=== PATIENT | male | born 1950 | race Caucasian/White ===

== ENCOUNTER → 2017-01-21 | Outpatient (CLI) | payer OTHER ==
--- NOTE | 2017-01-21 10:18 | MRI ---
Indication: Knee pain. Exam: MRI left knee without contrast. Technique: Routine multiplanar multisequence imaging was performed through the left knee. Findings: The middle 2/3 of the medial meniscus is not well visualized there is a small irregular ap pearance to the anterior horn which is extruded anterior to the disk joint space . There is moderate to severe joint space narrowing medially in the knee . There is moderate narrowing along the latera l compartment of the knee . There is moderate irregular abnormal signal and attenuation of the anter ior and middle 2/3 of the lateral meniscus with abnormal signal extending into the posterior horn. T here is associated severe thinning of the articular cartilage laterally . There is abnormal thickeni ng and signal throughout the posterior cruciate ligament with no focal fluid signal or retraction se en. The anterior cruciate ligament has an attenuated and irregular appearance with increased signal throughout . There is no retraction or fluid signal seen. There is a small joint effusion. No fractu re or dislocation is seen . There is minimal subarticular increased signal along the articular surfa edgar medially. There is moderate asymmetry of the femoral notch with lateral tilting of the patella a nd diffuse moderate thinning of the patellar cartilage. The surrounding retinacular fibers are intac t. The prominent osteophytes medially in the knee. The collateral ligaments are intact. 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 Extensive degenerative tear involving the middle 2/3 of the lateral meniscus . Severe osteoarthritic changes in the knee which is more prominent laterally with no acute bony abnor mality seen. Mild chronic partial tears or strains of the anterior and posterior cruciate ligaments with no full- thickness tear is identified . Small joint effusion. Moderate asymmetry of the femoral notch and lateral tilting of the patella with associated moderate chondromalacia. Reported By:
== END | disposition home or self-care (01) ==
LOC: RAD 08:12
PROVIDERS: ATTEND Internal Medicine
DX: M25.562 Pain in left knee (principal); S83.232A Complex tear of medial meniscus, current injury, left knee, initial encounter; S83.282A Other tear of lateral meniscus, current injury, left knee, initial encounter; M25.462 Effusion, left knee
CPT/HCPCS: 73721

== ENCOUNTER 2021-08-09 12:42 | Inpatient (IN) ==
[2021-08-09] MEDS ORDERED: NS 1,000 ML IV 1,000 ML IV ONE ×2 (12:47→15:01)
[2021-08-09] MEDS ORDERED: NS 1,000 ML IV 1,000 ML ONE ×2 (13:03→15:11)
--- NOTE | 2021-08-09 13:05 | RAD ---
HISTORYWEAKNESS, CHILLS, ORTEGA DM. HTN, ORTHOSTUDYCHEST, 1 VIEWCOMPARISONNoneFINDINGSThe trachea is midline. The cardiac silhouette is unremarkable. The lungs are clear without focal infiltrate or effusion. The bony thorax is unremarkable.IMPRESSIONNo acute cardiopulmonary findings .Electronically signed by: EMILIANA GAMA (Aug 09, 2021 13:03:48)
[2021-08-09 13:12] LABS: BASOPHILS # (AUTO) 0.1 X10^3/uL (0.0-0.1); BASOPHILS % (AUTO) 0.5 % (0.2-1.0); HEMATOCRIT 40.5 % (42.0-54.0); HEMOGLOBIN 13.6 g/dL (13.5-18.0); LYMPHOCYTES # (AUTO) 0.3 X10^3/uL (1.3-2.9); LYMPHOCYTES % (AUTO) 1.4 % (21.0-51.0); MEAN CORPUSCULAR HEMOGLOBIN 29.6 pg (27.0-34.0); MEAN CORPUSCULAR HGB CONC 33.6 g/dL (33.0-35.0); MEAN CORPUSCULAR VOLUME 88.2 fL (80.0-100.0); MEAN PLATELET VOLUME 9.1 fL (7.4-11.0); MONOCYTES # (AUTO) 0.8 x10^3/uL (0.3-0.8); NEUTROPHILS # (AUTO) 19.2 x10^3/uL (2.2-4.8); NEUTROPHILS % (AUTO) 94.1 % (42.0-75.0); PLATELET COUNT 203 X10^3/uL (150.0-450.0); RED BLOOD COUNT 4.59 X10^6/uL (4.7-6.0); RED CELL DISTRIBUTION WIDTH 14.4 % (11.6-16.5); WHITE BLOOD COUNT 20.4 X10^3/uL (3.6-10.0)
--- NOTE | 2021-08-09 13:13 | DR.DIZZY ---
HPI Time seen Time Seen by Provider: 08/09/21 12:53 Complaint Chief Complaint Doctor Comments: 70 y/o male presents for evaluation, feeling ill over the past several days. Started with a headache, subjective fever, urinary frequency and dysuria, nausea and vomiting. Headache located at back of head, constant, dull, does not radiate. Nothing makes it better, nothing makes it worse. Drinking fluids, but not eating. Having generalized weakness. Is a diabetic. Has been having some bladder issues for awhile, was scheduled to see a hyperbaric tech yesterday, but cancelled due to illness. COVID-19 Coronavirus risk:travel/contact w/high risk person: No Has patient experienced Coronavirus symptoms: Yes Coronavirus symptoms experienced: Fever Nurses Notes Reviewed Nurses Notes Review: Yes Source History Provided: Patient and Family Member Mode of Arrival Mode of Arrival: Wheelchair Context Stroke Symptoms: None PMH PMH Past Medical History: Diabetes and Hypertension Past Surgical History: Yes Social History Does patient currently use any type of tobacco product: No Alcohol Use: None Do you use any recreational Drugs:: No ROS Review of Systems Constitutional: Chills, Fever and Weakness Eyes: No Symptoms Reported ENTM: No Symptoms Reported Respiratoy: No Symptoms Reported Cardiovascular: No Symptoms Reported Gastrointestinal/Abdominal: Nausea and Vomiting Genitourinary: Dysuria and Frequency Neurological: Headache and Weakness Musculoskeletal: No Symptoms Reported Integumentary: No Symptoms Reported Hematologic/Lymphatic: No Symptoms Reported Endocrine: No Symptoms Reported Psychiatric: No Symptoms Reported All Other Systems: Reviewed and Negative PE Vital Signs Vitals: Temperature 99.3 F Pulse Rate 96 Respiratory Rate 20 Blood Pressure 161/81 O2 Sat by Pulse Oximetry 90 General Limitations: No Limitations General Appearance: Alert and In No Apparent Distress Head Head Exam: Normal Inspection Eyes Eye exam: Normal Appearance Pupils: Regular, Round: Bilateral ENT ENT Exam: Normal Exam, Mucous Membranes Dry and TM's Normal Bilaterally Neck Neck Exam: Normal Inspection Chest Chest Inspection: Normal Inspection Respiratory Respiratory Exam: Normal Lung Sounds Bilat; negative Accessory Muscle Use and Respiratory Distress Respiratory Exam: Bilateral: Clear to Auscultation Cardiovascular Cardiovascular Exam: Regular Rate, Tachycardia and Normal Heart Sounds Abdominal Exam Abdominal Exam: Normal Inspection, Normal Bowel Sounds, Soft and Tenderness (suprapubic region) Extremeties Extremities Exam: Normal Inspection and Full ROM; negative Tenderness and Edema Neurologic Neurological Exam: Alert, Oriented X3 and CN II-XII Intact; negative Motor Sensory Deficit Psychiatric Psychiatric Exam: Normal Affect Skin Skin Exam: Warm and Dry MDM Differential Diagnosis Differential Diagnosis: Dehydration and Electrolyte disorder Differential Diagnosis Comment: viral illness, Covid, flu, UTI COURSE Treatment Treatment: Pt ill x several days, having dysuria, frequency, weakness. W/u initiated. Given IV fluids. WBC elevated at 20K, with degree of left shift. Glucose very elevated , 575. Chemistries show renal injury - BUN 75,,Cr3.9. Given additional IV fluids, IV Levaquin to cover the urine. Given regular insu eneida bolus, 10 U. Discussed with his MD, Dr Adam, will admit. ROR Labs Reviewed Laboratory Results Reviewed?: Yes Result Diagrams: 08/09/21 13:00 08/09/21 13:00 Laboratory: WBC 20.4 X10^3/uL (3.6-10.0) H 08/09/21 13:00 RBC 4.59 X10^6/uL (4.7-6.0) L 08/09/21 13:00 Hgb 13.6 g/dL (13.5-18.0) 08/09/21 13:00 Hct 40.5 % (42.0-54.0) L 08/09/21 13:00 MCV 88.2 fL (80.0-100.0) 08/09/21 13:00 MCH 29.6 pg (27.0-34.0) 08/09/21 13:00 MCHC 33.6 g/dL (33.0-35.0) 08/09/21 13:00 RDW 14.4 % (11.6-16.5) 08/09/21 13:00 Plt Count 203 X10^3/uL (150.0-450.0) 08/09/21 13:00 Plt Count Comment Adequate (ADEQUATE) 08/09/21 13:00 MPV 9.1 fL (7.4-11.0) 08/09/21 13:00 Neut % (Auto) 94.1 % (42.0-75.0) H 08/09/21 13:00 Lymph % (Auto) 1.4 % (21.0-51.0) L 08/09/21 13:00 [place] % (Auto) 4.0 % (0.0-13.0) 08/09/21 13:00 Eos % (Auto) 0.0 % (0.9-2.9) L 08/09/21 13:00 Baso % (Auto) 0.5 % (0.2-1.0) 08/09/21 13:00 Neut # (Auto) 19.2 x10^3/uL (2.2-4.8) H 08/09/21 13:00 Lymph # (Auto) 0.3 X10^3/uL (1.3-2.9) L 08/09/21 13:00 [place] # (Auto) 0.8 x10^3/uL (0.3-0.8) 08/09/21 13:00 Eos # (Auto) 0.0 x10^3/uL (0.0-0.2) 08/09/21 13:00 Baso # (Auto) 0.1 X10^3/uL (0.0-0.1) 08/09/21 13:00 Absolute Nucleated RBC 0.1 /100WBC 08/09/21 13:00 Total Counted 100 08/09/21 13:00 Neutrophils % (Manual) 75 % (39-76) 08/09/21 13:00 Band Neutrophils % 13 % (0-10) H 08/09/21 13:00 Lymphocytes % (Manual) 5 % (13-43) L 08/09/21 13:00 Monocytes % (Manual) 4 % (4-9) 08/09/21 13:00 Metamyelocytes % 3 08/09/21 13:00 Plt Morphology Comment Normal (NORMAL) 08/09/21 13:00 RBC Morphology Normal (NORMAL) 08/09/21 13:00 Sodium 129 mmol/L (136-145) L 08/09/21 13:00 Corrected Sodium 140 mmol/L (136-145) 08/09/21 13:00 Potassium 4.5 mmol/L (3.5-5.1) 08/09/21 13:00 Chloride 92 mmol/L (98-107) L 08/09/21 13:00 Carbon Dioxide 21.6 mmol/L (21-32) 08/09/21 13:00 BUN 73 mg/dL (7-18) H 08/09/21 13:00 Creatinine 3.86 mg/dL (0.70-1.30) H 08/09/21 13:00 Est GFR (MDRD) Af Amer 20 (>60) L 08/09/21 13:00 Est GFR (MDRD) Non-Af 17 (>60) L 08/09/21 13:00 Glucose 575 mg/dL (65-99) H* 08/09/21 13:00 POC Glucose (mg/dL) 478 mg/dL (65-99) H 08/09/21 15:08 Calcium 8.4 mg/dL (8.5-10.1) L 08/09/21 13:00 Corrected Calcium 9.8 mg/dL (8.5-10.1) 08/09/21 13:00 Total Bilirubin 0.40 mg/dL (0.2-1.0) 08/09/21 13:00 AST 43 Units/L (15-37) H 08/09/21 13:00 ALT 32 Units/L (12-78) 08/09/21 13:00 Alkaline Phosphatase 138 Units/L (46-116) H 08/09/21 13:00 Creatine Kinase 62 Units/L (39-308) 08/09/21 13:00 CK-MB (CK-2) < 1.0 ng/mL (0-4.0) 08/09/21 13:00 CK/CKMB % Calc 1.6 % (<4) 08/09/21 13:00 Troponin I < 0.02 ng/mL (0-1.5) 08/09/21 13:00 Total Protein 7.2 g/dL (6.4-8.2) 08/09/21 13:00 Albumin 2.2 g/dL (3.4-5.0) L 08/09/21 13:00 Globulin 5.0 g/dL (2.5-4.5) H 08/09/21 13:00 Albumin/Globulin Ratio 0.4 Ratio (1.1-2.1) L 08/09/21 13:00 Specimen Type Random urine 08/09/21 13:16 Urine Color Yellow (YELLOW) 08/09/21 13:16 Urine Appearance Cloudy (CLEAR) 08/09/21 13:16 Urine pH 5.0 (5.0 - 8.0) 08/09/21 13:16 Ur Specific [place] 1.015 (1.000-1.030) 08/09/21 13:16 Urine Protein 3+ (NEGATIVE) 08/09/21 13:16 Urine Glucose (UA) 4+ (NEGATIVE) 08/09/21 13:16 Urine Ketones Negative (NEGATIVE) 08/09/21 13:16 Urine Occult Blood 5+ (NEGATIVE) 08/09/21 13:16 Urine Nitrite Negative (NEGATIVE) 08/09/21 13:16 Urine Bilirubin Negative (NEGATIVE) 08/09/21 13:16 Urine Urobilinogen Normal (NORMAL) 08/09/21 13:16 Ur Leukocyte Esterase 2+ (NEGATIVE) 08/09/21 13:16 Urine RBC 5-10 /HPF (0-3) A 08/09/21 13:16 Urine WBC 30-50 /HPF (0-5) A 08/09/21 13:16 Ur Squamous Epith Cells Rare /HPF (NEGATIVE) 08/09/21 13:16 Amorphous Sediment 3+ /HPF (NEGATIVE) 08/09/21 13:16 Urine Bacteria 4+ /HPF (NEGATIVE) 08/09/21 13:16 Granular Casts Few /LPF (NEGATIVE) 08/09/21 13:16 Urine Mucus Numerous /HPF (NEGATIVE) 08/09/21 13:16 Ur Culture Indicated? Yes/culture set up 08/09/21 13:16 SARS-CoV-2 (PCR) Negative (NEGATIVE) 08/09/21 13:12 Influenza Type A (PCR) Negative (NEGATIVE) 08/09/21 13:12 Influenza Type B (PCR) Negative (NEGATIVE) 08/09/21 13:12 RSV (PCR) Negative (NEGATIVE) 08/09/21 13:12 Other Results Comments: + hyperglycemia, acute renal injury. XRAY XRAY Interpreted by: Radiologist X-ray Results: CXR acceptable Opioid Opioid Risk Tool Total: 0 Total Score Risk Category: Low Risk Copyright: [employer] predicting aberrant behaviors Diagnosis Discharge Problem: Acute UTI, Acute renal injury, Poorly controlled diabetes mellitus
[2021-08-09 13:29] LABS: BAND NEUTROPHILS % 13 % (0-10); METAMYELOCYTES % 3
[2021-08-09 13:30] LABS: PLATELET MORPHOLOGY COMMENT NORMAL (NORMAL)
[2021-08-09 13:30] LABS: BILIRUBIN,URINE NEGATIVE (NEGATIVE); BLOOD/HEMOGLOBIN,URINE 5+ (NEGATIVE); GLUCOSE, URINE 4+ (NEGATIVE); KETONES,URINE NEGATIVE (NEGATIVE); LEUKOCYTE ESTERASE ,URINE 2+ (NEGATIVE); NITRITES,URINE NEGATIVE (NEGATIVE); PROTEIN,URINE 3+ (NEGATIVE); UROBILINOGEN,URINE NORMAL (NORMAL)
[2021-08-09 13:33] LABS: APPEARANCE,URINE CLOUDY (CLEAR); COLOR,URINE YELLOW (YELLOW)
[2021-08-09 13:35] LABS: ALANINE AMINOTRANSFERASE 32 Units/L (12-78); ALBUMIN 2.2 g/dL (3.4-5.0); ALKALINE PHOSPHATASE 138 Units/L (46-116); ASPARTATE AMINO TRANSFERASE 43 Units/L (15-37); BLOOD UREA NITROGEN 73 mg/dL (7-18); CALCIUM 8.4 mg/dL (8.5-10.1); CARBON DIOXIDE 21.6 mmol/L (21-32); CHLORIDE 92 mmol/L (98-107); CKMB % 1.6 % (<4); COR CA(FOR HYPOALB) 9.8 mg/dL (8.5-10.1); CREATINE KINASE 62 Units/L (39-308); CREATINE KINASE MB < 1.0 ng/mL (0-4.0); CREATININE 3.86 mg/dL (0.70-1.30); SODIUM 129 mmol/L (136-145); TOTAL PROTEIN 7.2 g/dL (6.4-8.2); TROPONIN I < 0.02 ng/mL (0-1.5); eGFR NON BLACK RACES 17 (>60)
[2021-08-09 13:38] LABS: COR NA(FOR HYPERGLY) 140 mmol/L (136-145)
[2021-08-09 13:40] LABS: AMORPHOUS SEDIMENT,UR 3+ /HPF (NEGATIVE); BACTERIA,URINE 4+ /HPF (NEGATIVE); SQUAMOUS EPITHELIAL CELL,UR RARE /HPF (NEGATIVE)
[2021-08-09 13:41] LABS: GRANULAR CASTS,URINE FEW /LPF (NEGATIVE); MUCUS,URINE NUMEROUS /HPF (NEGATIVE)
[2021-08-09] MEDS ORDERED: LEVAQUIN PREMIX IV 750 MG 750 MG/150 ML BAG IV ONE ×2 (15:01→15:11)
[2021-08-09] MEDS ORDERED: HumuLIN R IV ONE (15:02)
[2021-08-09] MEDS ORDERED: HumuLIN R ONE (15:11)
--- NOTE | 2021-08-09 17:55 | CT ---
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 [No acute intraparenchymal hemorrhage or cytotoxic edema is identified.] [No extra-axial fluid collections are seen.] [No alteration in the attenuation of the brain parenchyma can be identified to suggest acute or subacute ischemic change.] However, if the patients symptoms are clinically & neurologically concerning for an acute ischemic event, then MR imaging of the brain with DWI sequencing could be considered to exclude an acute CVA (based on this patient?s clinical presentation and the specific medical circumstances). If there remains strong concern for an intracranial neoplasm or mass, then follow-up with CT or MR imaging of the brain with IV contrast is recommended for improved inspection (which would be more sensitive for the assessment of any intracranial neoplasia). [The ventricular system is symmetric and nondilated.] [The extracranial structures are grossly unremarkable.] The visualized paranasal sinuses and mastoid air cells are relatively clear on this examination as well.IMPRESSION:1. No acute intracranial process or hemorrhage identified.If clinical symptomatology persists, follow-up outpatient MR imaging of the brain with IV contrast is recommended for assurance.Electronically signed by: MORELIA RUTLEDGE III (Aug 09, 2021 17:53:24)
[2021-08-09] MEDS ORDERED: GLUCOPHAGE PO SCH (21:00)
[2021-08-09] MEDS: HumuLIN R SC PRN (21:12)
[2021-08-09] MEDS: HYTRIN PO SCH (21:14)
[2021-08-09] MEDS: SNACK - Diabetic Appropriate PO SCH (21:14)
[2021-08-09] MEDS: NS 1,000 ML IV 1,000 ML IV SCH (21:14)
[2021-08-09] MEDS: NORVASC TAB 5 MG PO SCH (21:14)
[2021-08-09] MEDS: NORCO 5/325 MG TAB PO PRN (21:15)
[2021-08-09] MEDS: GLUCOTROL XL 24-HR PO SCH (21:15)
[2021-08-10] MEDS: NS 1,000 ML IV 1,000 ML IV SCH ×5 (03:31→21:28)
[2021-08-10] MEDS: NORCO 5/325 MG TAB PO PRN ×3 (03:41→22:44)
[2021-08-10] MEDS ORDERED: TYLENOL 325 MG TAB PO ONE (05:01)
[2021-08-10] MEDS: TYLENOL 325 MG TAB PO PRN ×2 (05:05→15:43)
[2021-08-10] MEDS: HumuLIN R SC PRN ×3 (06:07→16:59)
[2021-08-10 06:39] LABS: BASOPHILS % (AUTO) 0.2 % (0.2-1.0); HEMATOCRIT 36.7 % (42.0-54.0); HEMOGLOBIN 12.5 g/dL (13.5-18.0); LYMPHOCYTES # (AUTO) 0.4 X10^3/uL (1.3-2.9); LYMPHOCYTES % (AUTO) 1.9 % (21.0-51.0); MEAN CORPUSCULAR HEMOGLOBIN 29.7 pg (27.0-34.0); MEAN CORPUSCULAR HGB CONC 34.1 g/dL (33.0-35.0); MEAN CORPUSCULAR VOLUME 87.1 fL (80.0-100.0); MEAN PLATELET VOLUME 9.3 fL (7.4-11.0); MONOCYTES # (AUTO) 0.7 x10^3/uL (0.3-0.8); MONOCYTES % (AUTO) 3.6 % (0.0-13.0); NEUTROPHILS # (AUTO) 18.5 x10^3/uL (2.2-4.8); NEUTROPHILS % (AUTO) 94.3 % (42.0-75.0); PLATELET COUNT 190 X10^3/uL (150.0-450.0); RED BLOOD COUNT 4.22 X10^6/uL (4.7-6.0); RED CELL DISTRIBUTION WIDTH 14.1 % (11.6-16.5); WHITE BLOOD COUNT 19.6 X10^3/uL (3.6-10.0)
[2021-08-10 06:49] LABS: ALBUMIN 1.8 g/dL (3.4-5.0); CALCIUM 8.1 mg/dL (8.5-10.1); CARBON DIOXIDE 18.3 mmol/L (21-32); COR CA(FOR HYPOALB) 9.9 mg/dL (8.5-10.1); CREATININE 3.69 mg/dL (0.70-1.30); TOTAL PROTEIN 6.7 g/dL (6.4-8.2)
[2021-08-10 07:27] LABS: BAND NEUTROPHILS % 11 % (0-10); PLATELET MORPHOLOGY COMMENT NORMAL (NORMAL)
[2021-08-10] MEDS: NORVASC TAB 5 MG PO SCH (09:38)
[2021-08-10] MEDS: GLUCOTROL XL 24-HR PO SCH (09:38)
[2021-08-10] MEDS: HYTRIN PO SCH (09:38)
--- NOTE | 2021-08-10 10:29 | DR.H&P ---
H&P - History & Physical for Day of: H&P Date: 08/09/21 - Chief Complaint Chief Complaint: HEADACHE, FEVER, URINARY FREQUENCY, PAINFUL URINATION, AND NAUSEA/VOMITING - History of Present Illness History of Present Illness: IS A 70 YEAR OLD PATIENT OF OURS. HE PRESENTED TO THE ER WITH COMPLAINTS. OF HEADACHE, FEVER, URINARY FREQUENCY, PAINFUL URINATION, AND NAUSEA/VOMITING. HEADACHE IS LOCATED AT THE BACK OF THE HEAD, IS CONSTANT, DULL, AND DOES NOT RADIATE. HE RATES PAIN A 6/10. HE REPORTS FLUID INTAKE, BUT DECREASED SOLID INTAKE. HE ALSO ADMITS TO GENERALIZED WEAKNESS. HE WAS SCHEDULED TO SEE A MANUFACTURERS AGENT TODAY, BUT CANCELLED APPOINTMENT DUE TO ILLNESS. HIS PMH INCLUDES DIABETES AND HTN. ON ARRIVAL THE HOSPITAL, VITALS WERE 99.3-121-25-94%-161/81. LABS WERE OBTAINED. ABNORMAL LAB VALUES INCLUDE THE FOLLOWING: WBC 20.4, RBC 4.59, HCT 40.5, SODIUM 129, CHLORIDE 92, BUN 73, CREATININE 3.86, GLUCOSE 575, CALCIUM 8.4, AST 43, ALK PHOS 138, ALBUMIN 2.2, GLOBULIN 5.0. URINALYSIS REVEALED: WBC 30-50, RBC 5-10, LEUKOCYTES 2+, BACTERIA 4+, OCCULT BLOOD 5+. COVID, INFLUENZA, AND RSV NEGATIVE. BLOOD AND URINE CULTURES WERE SET UP. CHEST XRAY WAS OBTAINED AND REVEALED: NO ACUTE CARDIOPULMONARY FINDINGS. BRAIN CT OBTAINED AND REVEALED: NO ACUTE INTRACRANIAL PROCESS OR HEMORRHAGE IDENTIFIED. IN THE ER, HE WAS GIVEN A NORMAL SALINE BOLUS X 2, LEVAQUIN 750MG IV X 1, HUMULIN R 10 UNITS. BLOOD GLUCOSE DECREASED TO 478. HE WAS ADMITTED TO THE HOSPITAL FOR FURTHER EVALUATION AND TREATMENT OF ACUTE UTI, ACUTE RENAL INJURY, HYPERGLYCEMIA. HE WAS STARTED ON NORMAL SALINE AT 150ML/HR, INVANZ 0.5G IV DAILY, OTBS ACHS, HUMULIN R SLIDING SCALE, TYLENOL 650MG PO Q4H PRN, AND HIS HOME MEDICATIONS OF NORVASC, GLIPIZIDE, NORCO, AND TERAZOXIN WERE RESUMED. OTHERWISE, WE PLAN TO FOLLOW UP WITH AM LABS AND CONTINUE TO MONITOR. TIME SPENT ON CLINICAL ASSESSMENT, REVIEWING LABS AND IMAGING, DECISION MAKING, AND DOCUMENTATION GREATER THAN 75 MINUTES. - Past Medical History Past Medical History: Hypertension, Diabetes - Past Surgical History Surgical History: Ortho Surgery - Family History Family Medical History: [place], Coronary Artery Disease, Sudden Cardiac - Social History Does patient currently use any type of tobacco product: No Does any household member use tobacco: No Alcohol Use: None Drug Use: None - Medications Home Medications: codeine Allergy (Verified 08/09/21 12:43) erythromycin base Allergy (Verified 08/09/21 12:43) shellfish derived Allergy (Verified 08/09/21 12:43) CONTINUE taking the following medications bethanechol chloride 25 mg PO TID 08/10/21 [History] dutasteride 0.5 mg PO HS 08/10/21 [History] glipizide 10 mg PO DAILY 08/10/21 [History] hydrocodone-acetaminophen 1 tab PO BID PRN 08/10/21 [History] ropinirole 0.5 mg PO BID 08/10/21 [History] - Review of Systems Constitutional: Fever, Weakness Eyes: No Symptoms Reported ENT: No Symptoms Reported Respiratory: No Symptoms Reported Cardiovascular: No Symptoms Reported Gastrointestinal: See HPI, Nausea, Vomiting Genitourinary: See HPI, Dysuria, Frequency Musculoskeletal: No Symptoms Reported Skin: No Symptoms Reported Neurological: Weakness - Physical Exam Vital Signs: Temperature 98.2 F Pulse Rate [Radial] 83 Pulse Rate 102 Respiratory Rate 21 Blood Pressure [Left Arm] 114/66 Blood Pressure 118/59 O2 Sat by Pulse Oximetry 96 Oriented: Normal Eyes: Normal Ear: Normal Nose: Normal Throat: Normal Respiratory: Diminished Throughout Cardiovascular: Tachycardia : Dysuria, Frequency Auscultation: Bowel Sounds: Normal Palpation: Normal Tenderness: Normal Skin: Normal Musculoskeletal: Normal Psychiatric: Normal Mood Description: Calm Affect: Normal Speech Pattern: Clear - Assessment/Plan (1) Acute UTI Status: Acute Plan: ADMIT, NORMAL SALINE AT 150ML/HR, INVANZ 0.5G IV DAILY, OTBS ACHS, HUMULIN R SLIDING SCALE, TYLENOL 650MG PO Q4H PRN, AND HIS HOME MEDICATIONS OF NORVASC, GLIPIZIDE, NORCO, AND TERAZOXIN WERE RESUMED. (2) Acute renal injury Status: Acute (3) Hyperglycemia due to type 2 diabetes mellitus Status: Acute - Allergies Allergies/Adverse Reactions: Allergies Allergy/AdvReac Type Severity Reaction Status Date / Time codeine Allergy Verified 08/09/21 12:43 erythromycin base Allergy Verified 08/09/21 12:43 shellfish derived Allergy Verified 08/09/21 12:43
[2021-08-10] MEDS: INVANZ INJ 1 GM VIAL 0.5 GM in NS 50 ML IV 50 ML IV SCH (10:55)
[2021-08-10] MEDS: ROBITUSSIN DM PO PRN ×2 (17:15→22:44)
[2021-08-10] MEDS: SNACK - Diabetic Appropriate PO SCH (21:15)
[2021-08-11] MEDS: NS 1,000 ML IV 1,000 ML IV SCH ×6 (00:58→20:19)
[2021-08-11] MEDS: HumuLIN R SC PRN ×4 (05:49→20:23)
[2021-08-11 06:20] LABS: BASOPHILS % (AUTO) 0.2 % (0.2-1.0); EOSINOPHILS % (AUTO) 0.1 % (0.9-2.9); HEMATOCRIT 37.7 % (42.0-54.0); HEMOGLOBIN 12.6 g/dL (13.5-18.0); LYMPHOCYTES # (AUTO) 0.6 X10^3/uL (1.3-2.9); LYMPHOCYTES % (AUTO) 2.9 % (21.0-51.0); MEAN CORPUSCULAR HEMOGLOBIN 29.4 pg (27.0-34.0); MEAN CORPUSCULAR HGB CONC 33.3 g/dL (33.0-35.0); MEAN CORPUSCULAR VOLUME 88.2 fL (80.0-100.0); MEAN PLATELET VOLUME 9.5 fL (7.4-11.0); MONOCYTES # (AUTO) 1.3 x10^3/uL (0.3-0.8); NEUTROPHILS # (AUTO) 20.1 x10^3/uL (2.2-4.8); NEUTROPHILS % (AUTO) 90.8 % (42.0-75.0); PLATELET COUNT 174 X10^3/uL (150.0-450.0); RED BLOOD COUNT 4.28 X10^6/uL (4.7-6.0); RED CELL DISTRIBUTION WIDTH 14.9 % (11.6-16.5); WHITE BLOOD COUNT 22.1 X10^3/uL (3.6-10.0)
[2021-08-11 06:21] LABS: ALBUMIN 1.5 g/dL (3.4-5.0); CALCIUM 7.8 mg/dL (8.5-10.1); CARBON DIOXIDE 20.8 mmol/L (21-32); COR CA(FOR HYPOALB) 9.8 mg/dL (8.5-10.1); CREATININE 4.25 mg/dL (0.70-1.30)
[2021-08-11 07:06] LABS: BAND NEUTROPHILS % 7 % (0-10); PLATELET MORPHOLOGY COMMENT NORMAL (NORMAL)
[2021-08-11] MEDS: MAALOX or MYLANTA PO PRN ×2 (08:12→20:23)
[2021-08-11] MEDS: HYTRIN PO SCH (08:12)
[2021-08-11] MEDS: NORVASC TAB 5 MG PO SCH (08:12)
[2021-08-11] MEDS: GLUCOTROL XL 24-HR PO SCH (08:12)
[2021-08-11] MEDS: INVANZ INJ 1 GM VIAL 0.5 GM in NS 50 ML IV 50 ML IV SCH (10:22)
[2021-08-11] MEDS: PROTONIX TAB 40 MG PO SCH ×2 (12:06→20:22)
--- NOTE | 2021-08-11 13:27 | CT ---
HISTORYELEVATED WBC, UTI, +BLOOD CULTURESSTUDYABDOMEN/PELVIS W/O CONCOMPARISONNone availableTECHNIQUEMultiple axial images of the abdomen and pelvis were obtained from the lung bases to the pubic symphysis without the administration of IV contrast. Dose reduction techniques including Automated Exposure Control (AEC) and adjustment of mA and kV were utilized.FINDINGS[Small bilateral pleural effusions. Heart size is normal with small pericardial effusion. Liver is enlarged measuring 20 cm in craniocaudal dimension. There is low attenuation consistent with steatosis of the liver. No focal hepatic lesion given limitations of a noncontrast examination. Gallbladder, bile ducts, spleen, pancreas and adrenal glands are normal. The right kidney demonstrates moderate hydronephrosis without obstructing stone or mass. The left kidney demonstrates moderate hydronephrosis without obstructing stone or mass. Urinary bladder is distended. Prostate gland is normal. The rectum and colon are normal. The appendix is normal. Upper GI tract demonstrates no evidence of mass or obstruction. No adenopathy. Abdominal aorta is normal in caliber. Review of bone windows demonstrates no acute osseous abnormality. Moderate spondylosis at L5-S1.]IMPRESSIONModerate bilateral hydronephrosis to the level of the urinary bladder without obstructing stones or mass. Given the dilatation of the urinary bladder this may represent reflux of urine in the setting of chronic bladder outlet obstruction or neuropathy. A patulous right left ureter is also consideration. If clinically warranted a nuclear medicine renal scan with Lasix can be performed did rule out ureteral obstruction.Hepatomegaly and steatosis.Small bilateral pleural effusions with small pericardial effusion. Correlate for volume overload/third-spacing.Electronically signed by: OLE OLVERA (Aug 11, 2021 13:25:52)
[2021-08-11] MEDS: MYLICON TAB 80 MG CHEW PO SCH ×2 (14:07→21:15)
[2021-08-11] MEDS: ROBITUSSIN DM PO PRN (15:40)
[2021-08-11] MEDS: SNACK - Diabetic Appropriate PO SCH (20:00)
[2021-08-11] MEDS: NORCO 5/325 MG TAB PO PRN (22:32)
[2021-08-12] MEDS: NS 1,000 ML IV 1,000 ML IV SCH ×3 (03:29→13:00)
[2021-08-12] MEDS: MYLICON TAB 80 MG CHEW PO SCH ×3 (06:00→21:11)
[2021-08-12 06:02] LABS: BASOPHILS # (AUTO) 0.1 X10^3/uL (0.0-0.1); BASOPHILS % (AUTO) 0.4 % (0.2-1.0); EOSINOPHILS # (AUTO) 0.1 x10^3/uL (0.0-0.2); EOSINOPHILS % (AUTO) 0.3 % (0.9-2.9); HEMATOCRIT 36.4 % (42.0-54.0); HEMOGLOBIN 12.1 g/dL (13.5-18.0); LYMPHOCYTES # (AUTO) 0.7 X10^3/uL (1.3-2.9); LYMPHOCYTES % (AUTO) 3.2 % (21.0-51.0); MEAN CORPUSCULAR HEMOGLOBIN 29.1 pg (27.0-34.0); MEAN CORPUSCULAR HGB CONC 33.3 g/dL (33.0-35.0); MEAN CORPUSCULAR VOLUME 87.5 fL (80.0-100.0); MEAN PLATELET VOLUME 9.5 fL (7.4-11.0); MONOCYTES # (AUTO) 1.8 x10^3/uL (0.3-0.8); MONOCYTES % (AUTO) 8.5 % (0.0-13.0); NEUTROPHILS # (AUTO) 18.2 x10^3/uL (2.2-4.8); NEUTROPHILS % (AUTO) 87.6 % (42.0-75.0); PLATELET COUNT 180 X10^3/uL (150.0-450.0); RED BLOOD COUNT 4.16 X10^6/uL (4.7-6.0); WHITE BLOOD COUNT 20.8 X10^3/uL (3.6-10.0)
[2021-08-12] MEDS: HumuLIN R SC PRN ×2 (06:17→11:38)
[2021-08-12 06:18] LABS: ALBUMIN 1.4 g/dL (3.4-5.0); CARBON DIOXIDE 17.4 mmol/L (21-32); COR CA(FOR HYPOALB) 10.1 mg/dL (8.5-10.1); CREATININE 4.2 mg/dL (0.70-1.30); TOTAL PROTEIN 5.9 g/dL (6.4-8.2)
[2021-08-12 06:44] LABS: PLATELET MORPHOLOGY COMMENT NORMAL (NORMAL)
[2021-08-12] MEDS: INVANZ INJ 1 GM VIAL 0.5 GM in NS 50 ML IV 50 ML IV SCH (08:24)
[2021-08-12] MEDS: GLUCOTROL XL 24-HR PO SCH (08:24)
[2021-08-12] MEDS: NORVASC TAB 5 MG PO SCH (08:25)
[2021-08-12] MEDS: HYTRIN PO SCH (08:25)
[2021-08-12] MEDS: PROTONIX TAB 40 MG PO SCH ×2 (08:25→21:11)
[2021-08-12] MEDS: ROBITUSSIN DM PO PRN ×2 (10:20→22:30)
--- NOTE | 2021-08-12 11:03 | PCM.PROG ---
Progress Note Progress Note for Day of Date of Exam: 08/11/21 Subjective Subjective: PT IS A 70 YEAR OLD MALE ADMITTED FOR ACUTE UTI, ACUTE RENAL FAILURE, AND GENERALIZED WEAKNESS. HIS PMH INCLUDES DIABETES AND HTN. THIS MORNING PATIENT REPORTS MINIMAL IMPROVEMENT IN HIS SYMPTOMS. HE DOES FEEL "BLOATED" AND HAS SOME SUPRAPUBIC TENDERNESS. LABS/IMAGING WERE OBTAINED: WBC 22, HGB 12.6, PLT 174, NA 134, K 4.4, CREATININE 4.25, GLUCOSE 217, BLOOD AND URINE CULTURES PENDING, PRELIM URINE CULTURE POSITIVE FOR GRAM NEGATIVE RODS AND PRELIM POSITIVE BLOOD CULTURE, AWAITING SPECIATION. CHEST XRAY WAS OBTAINED AND REVEALED: NO ACUTE CARDIOPULMONARY FINDINGS. HE IS CURRENTLY ON NORMAL SALINE AT 150ML/HR, INVANZ 0.5G IV DAILY, OTBS ACHS, HUMULIN R SLIDING SCALE, TYLENOL 650MG PO Q4H PRN, AND HIS HOME MEDICATIONS OF NORVASC, GLIPIZIDE, NORCO, AND TERAZOSIN WERE RESUMED. WILL ADD PROTONIX FOR GERD SYMPTOMS AND SIMETHICONE FOR BLOATING. PT DOES APPEAR TO HAVE ABDOMINAL DISTENTION, WILL GET CTAP W/O CONTRAST FOR FURTHER EVALUATION. OTHERWISE, WE PLAN TO FOLLOW UP WITH AM LABS AND CONTINUE TO MONITOR. TIME SPENT ON CLINICAL ASSESSMENT, REVIEWING LABS AND IMAGING, DECISION MAKING, AND DOCUMENTATION GREATER THAN 45 MINUTES. Past Medical Family Social History Past Med/Fam/Surg Hx: No changes since H&P Allergies: Allergies codeine Allergy (Verified 08/09/21 12:43) erythromycin base Allergy (Verified 08/09/21 12:43) shellfish derived Allergy (Verified 08/09/21 12:43) Review of Systems ROS: No change since H&P Vital Signs and I&O's Vital Signs: Temperature 100.0 F Pulse Rate [Radial] 95 Pulse Rate 102 Respiratory Rate 20 Blood Pressure [Left Arm] 159/75 Blood Pressure 118/59 O2 Sat by Pulse Oximetry 93 Intake and Output: Intake & Output 08/09/21 08/10/21 08/11/21 08/12/21 23:59 23:59 23:59 23:59 Intake Total 360 / 360 4841 / 4841 6390 / 6390 940 / 940 Output Total 125 / 125 375 / 375 300 / 300 Balance 235 / 235 4466 / 4466 6090 / 6090 940 / 940 Physical Exam Oriented: Normal Eyes: Normal Ear: Normal Nose: Normal Throat: Normal Cardiovascular: Tachycardia : Dysuria and Frequency Auscultation: Bowel Sounds: Normal Tenderness: Suprapubic, Mild and Moderate Skin: Normal Musculoskeletal: Normal Psychiatric: Normal Mood Description: Calm Affect: Normal Speech Pattern: Clear and Appropriate Laboratory and Diagnostics Result Diagrams: 08/12/21 05:26 08/12/21 05:26 Labs: 08/09/21 13:16 Urine,Clean Catch Urine Culture - Final Escherichia Coli 08/10/21 06:00 Blood Blood Culture - Final Escherichia Coli 08/10/21 05:38 Blood Blood Culture - Final Escherichia Coli Laboratory WBC 20.8 X10^3/uL (3.6-10.0) H 08/12/21 05:26 RBC 4.16 X10^6/uL (4.7-6.0) L 08/12/21 05:26 Hgb 12.1 g/dL (13.5-18.0) L 08/12/21 05:26 Hct 36.4 % (42.0-54.0) L 08/12/21 05:26 MCV 87.5 fL (80.0-100.0) 08/12/21 05:26 MCH 29.1 pg (27.0-34.0) 08/12/21 05:26 MCHC 33.3 g/dL (33.0-35.0) 08/12/21 05:26 RDW 15.0 % (11.6-16.5) 08/12/21 05:26 Plt Count 180 X10^3/uL (150.0-450.0) 08/12/21 05:26 Plt Count Comment Adequate (ADEQUATE) 08/12/21 05:26 MPV 9.5 fL (7.4-11.0) 08/12/21 05:26 Neut % (Auto) 87.6 % (42.0-75.0) H 08/12/21 05:26 Lymph % (Auto) 3.2 % (21.0-51.0) L 08/12/21 05:26 [place] % (Auto) 8.5 % (0.0-13.0) 08/12/21 05:26 Eos % (Auto) 0.3 % (0.9-2.9) L 08/12/21 05:26 Baso % (Auto) 0.4 % (0.2-1.0) 08/12/21 05:26 Neut # (Auto) 18.2 x10^3/uL (2.2-4.8) H 08/12/21 05:26 Lymph # (Auto) 0.7 X10^3/uL (1.3-2.9) L 08/12/21 05:26 [place] # (Auto) 1.8 x10^3/uL (0.3-0.8) H 08/12/21 05:26 Eos # (Auto) 0.1 x10^3/uL (0.0-0.2) 08/12/21 05:26 Baso # (Auto) 0.1 X10^3/uL (0.0-0.1) 08/12/21 05:26 Absolute Nucleated RBC 0.0 /100WBC 08/12/21 05:26 Total Counted 100 08/12/21 05:26 Neutrophils % (Manual) 90 % (39-76) H 08/12/21 05:26 Band Neutrophils % 7 % (0-10) 08/11/21 05:30 Lymphocytes % (Manual) 4 % (13-43) L 08/12/21 05:26 Monocytes % (Manual) 6 % (4-9) 08/12/21 05:26 Metamyelocytes % 3 08/09/21 13:00 Plt Morphology Comment Normal (NORMAL) 08/12/21 05:26 RBC Morphology Normal (NORMAL) 08/12/21 05:26 Sodium 136 mmol/L (136-145) 08/12/21 05:26 Corrected Sodium 138 mmol/L (136-145) 08/12/21 05:26 Potassium 4.5 mmol/L (3.5-5.1) 08/12/21 05:26 Chloride 105 mmol/L (98-107) 08/12/21 05:26 Carbon Dioxide 17.4 mmol/L (21-32) L 08/12/21 05:26 BUN 93 mg/dL (7-18) H 08/12/21 05:26 Creatinine 4.20 mg/dL (0.70-1.30) H 08/12/21 05:26 Est GFR (MDRD) Af Amer 18 (>60) L 08/12/21 05:26 Est GFR (MDRD) Non-Af 15 (>60) L 08/12/21 05:26 Glucose 175 mg/dL (65-99) H 08/12/21 05:26 POC Glucose (mg/dL) 168 mg/dL (65-99) H 08/12/21 05:42 Calcium 8.0 mg/dL (8.5-10.1) L 08/12/21 05:26 Corrected Calcium 10.1 mg/dL (8.5-10.1) 08/12/21 05:26 Total Bilirubin 0.60 mg/dL (0.2-1.0) 08/12/21 05:26 AST 23 Units/L (15-37) 08/12/21 05:26 ALT 17 Units/L (12-78) 08/12/21 05:26 Alkaline Phosphatase 183 Units/L (46-116) H 08/12/21 05:26 Creatine Kinase 62 Units/L (39-308) 08/09/21 13:00 CK-MB (CK-2) < 1.0 ng/mL (0-4.0) 08/09/21 13:00 CK/CKMB % Calc 1.6 % (<4) 08/09/21 13:00 Troponin I < 0.02 ng/mL (0-1.5) 08/09/21 13:00 Total Protein 5.9 g/dL (6.4-8.2) L 08/12/21 05:26 Albumin 1.4 g/dL (3.4-5.0) L 08/12/21 05:26 Globulin 4.5 g/dL (2.5-4.5) 08/12/21 05:26 Albumin/Globulin Ratio 0.3 Ratio (1.1-2.1) L 08/12/21 05:26 Specimen Type Random urine 08/09/21 13:16 Urine Color Yellow (YELLOW) 08/09/21 13:16 Urine Appearance Cloudy (CLEAR) 08/09/21 13:16 Urine pH 5.0 (5.0 - 8.0) 08/09/21 13:16 Ur Specific [place] 1.015 (1.000-1.030) 08/09/21 13:16 Urine Protein 3+ (NEGATIVE) 08/09/21 13:16 Urine Glucose (UA) 4+ (NEGATIVE) 08/09/21 13:16 Urine Ketones Negative (NEGATIVE) 08/09/21 13:16 Urine Occult Blood 5+ (NEGATIVE) 08/09/21 13:16 Urine Nitrite Negative (NEGATIVE) 08/09/21 13:16 Urine Bilirubin Negative (NEGATIVE) 08/09/21 13:16 Urine Urobilinogen Normal (NORMAL) 08/09/21 13:16 Ur Leukocyte Esterase 2+ (NEGATIVE) 08/09/21 13:16 Urine RBC 5-10 /HPF (0-3) A 08/09/21 13:16 Urine WBC 30-50 /HPF (0-5) A 08/09/21 13:16 Ur Squamous Epith Cells Rare /HPF (NEGATIVE) 08/09/21 13:16 Amorphous Sediment 3+ /HPF (NEGATIVE) 08/09/21 13:16 Urine Bacteria 4+ /HPF (NEGATIVE) 08/09/21 13:16 Granular Casts Few /LPF (NEGATIVE) 08/09/21 13:16 Urine Mucus Numerous /HPF (NEGATIVE) 08/09/21 13:16 Ur Culture Indicated? Yes/culture set up 08/09/21 13:16 SARS-CoV-2 (PCR) Negative (NEGATIVE) 08/09/21 13:12 Influenza Type A (PCR) Negative (NEGATIVE) 08/09/21 13:12 Influenza Type B (PCR) Negative (NEGATIVE) 08/09/21 13:12 RSV (PCR) Negative (NEGATIVE) 08/09/21 13:12 Plan (1) Acute UTI: Status: Acute Plan: ADMIT, NORMAL SALINE AT 150ML/HR, INVANZ 0.5G IV DAILY, OTBS ACHS, HUMULIN R SLIDING SCALE, TYLENOL 650MG PO Q4H PRN, AND HIS HOME MEDICATIONS OF NORVASC, GLIPIZIDE, NORCO, AND TERAZOXIN WERE RESUMED. (2) Acute renal injury: Status: Acute (3) Hyperglycemia due to type 2 diabetes mellitus: Status: Acute
--- NOTE | 2021-08-12 11:31 | PCM.PROG ---
Progress Note Progress Note for Day of Date of Exam: 08/12/21 Subjective Subjective: PT IS A 70 YEAR OLD MALE ADMITTED FOR ACUTE UTI, ACUTE RENAL FAILURE, GENERALIZED WEAKNESS, AND NOW ALSO E. COLI BACTEREMIA. HIS PMH INCLUDES DIABETES AND HTN. THIS MORNING PATIENT REPORTS SOME IMPROVEMENT. HIS ABDOMEN HAS FELT BETTER AFTER BEING RESTARTED ON HIS PROTONIX AND ADDING SIMETHICONE. LABS/IMAGING WERE OBTAINED: WBC 20.8, HGB 12.1, PLT 180, NA 136, K 4.5, CREATININE 4.20, GLUCOSE 175, BLOOD AND URINE CULTURES BOTH POSITIVE FOR E. COLI AND SENSITIVE TO CURRENT ANTIBIOTICS. WILL ORDER REPEAT BLOOD CULTURE TODAY. CTAP WAS OBTAINED THAT REVEALED: Moderate bilateral hydronephrosis to the level of the urinary bladder without obstructing stones or mass. Given the dilatation of the urinary bladder this may represent reflux of urine in the setting of chronic bladder outlet obstruction or neuropathy. A patulous right left ureter is also consideration. If clinically warranted a nuclear medicine renal scan with Lasix can be performed did rule out ureteral obstruction. Hepatomegaly and steatosis. Small bilateral pleural effusions with small pericardial effusion. Correlate for volume overload/third-spacing. HE IS CURRENTLY ON NORMAL SALINE AT 150ML/HR, INVANZ 0.5G IV DAILY, OTBS ACHS, HUMULIN R SLIDING SCALE, TYLENOL 650MG PO Q4H PRN, AND HIS HOME MEDICATIONS OF NORVASC, GLIPIZIDE, NORCO, PROTONIX, AND TERAZOSIN. WILL DECREASE IVF TO 75ML/H. OTHERWISE, WE PLAN TO FOLLOW UP WITH AM LABS AND CONTINUE TO MONITOR. TIME SPENT ON CLINICAL ASSESSMENT, REVIEWING LABS AND IMAGING, DECISION MAKING, AND DOCUMENTATION GREATER THAN 45 MINUTES. Past Medical Family Social History Past Med/Fam/Surg Hx: No changes since H&P Allergies: Allergies codeine Allergy (Verified 08/09/21 12:43) erythromycin base Allergy (Verified 08/09/21 12:43) shellfish derived Allergy (Verified 08/09/21 12:43) Review of Systems ROS: No change since H&P Vital Signs and I&O's Vital Signs: Temperature 100.0 F Pulse Rate [Radial] 95 Pulse Rate 102 Respiratory Rate 20 Blood Pressure [Left Arm] 159/75 Blood Pressure 118/59 O2 Sat by Pulse Oximetry 93 Intake and Output: Intake & Output 08/09/21 08/10/21 08/11/21 08/12/21 23:59 23:59 23:59 23:59 Intake Total 360 / 360 4841 / 4841 6390 / 6390 940 / 940 Output Total 125 / 125 375 / 375 300 / 300 Balance 235 / 235 4466 / 4466 6090 / 6090 940 / 940 Physical Exam Oriented: Normal Eyes: Normal Ear: Normal Nose: Normal Throat: Normal Respiratory: Normal Cardiovascular: Tachycardia : Dysuria and Frequency Auscultation: Bowel Sounds: Normal Tenderness: Suprapubic and Mild Skin: Normal Musculoskeletal: Normal Psychiatric: Normal Mood Description: Calm Affect: Normal Speech Pattern: Clear and Appropriate Laboratory and Diagnostics Result Diagrams: 08/12/21 05:26 08/12/21 05:26 Labs: 08/09/21 13:16 Urine,Clean Catch Urine Culture - Final Escherichia Coli 08/10/21 06:00 Blood Blood Culture - Final Escherichia Coli 08/10/21 05:38 Blood Blood Culture - Final Escherichia Coli Laboratory WBC 20.8 X10^3/uL (3.6-10.0) H 08/12/21 05:26 RBC 4.16 X10^6/uL (4.7-6.0) L 08/12/21 05:26 Hgb 12.1 g/dL (13.5-18.0) L 08/12/21 05:26 Hct 36.4 % (42.0-54.0) L 08/12/21 05:26 MCV 87.5 fL (80.0-100.0) 08/12/21 05:26 MCH 29.1 pg (27.0-34.0) 08/12/21 05:26 MCHC 33.3 g/dL (33.0-35.0) 08/12/21 05:26 RDW 15.0 % (11.6-16.5) 08/12/21 05:26 Plt Count 180 X10^3/uL (150.0-450.0) 08/12/21 05:26 Plt Count Comment Adequate (ADEQUATE) 08/12/21 05:26 MPV 9.5 fL (7.4-11.0) 08/12/21 05:26 Neut % (Auto) 87.6 % (42.0-75.0) H 08/12/21 05:26 Lymph % (Auto) 3.2 % (21.0-51.0) L 08/12/21 05:26 [place] % (Auto) 8.5 % (0.0-13.0) 08/12/21 05:26 Eos % (Auto) 0.3 % (0.9-2.9) L 08/12/21 05:26 Baso % (Auto) 0.4 % (0.2-1.0) 08/12/21 05:26 Neut # (Auto) 18.2 x10^3/uL (2.2-4.8) H 08/12/21 05:26 Lymph # (Auto) 0.7 X10^3/uL (1.3-2.9) L 08/12/21 05:26 [place] # (Auto) 1.8 x10^3/uL (0.3-0.8) H 08/12/21 05:26 Eos # (Auto) 0.1 x10^3/uL (0.0-0.2) 08/12/21 05:26 Baso # (Auto) 0.1 X10^3/uL (0.0-0.1) 08/12/21 05:26 Absolute Nucleated RBC 0.0 /100WBC 08/12/21 05:26 Total Counted 100 08/12/21 05:26 Neutrophils % (Manual) 90 % (39-76) H 08/12/21 05:26 Band Neutrophils % 7 % (0-10) 08/11/21 05:30 Lymphocytes % (Manual) 4 % (13-43) L 08/12/21 05:26 Monocytes % (Manual) 6 % (4-9) 08/12/21 05:26 Metamyelocytes % 3 08/09/21 13:00 Plt Morphology Comment Normal (NORMAL) 08/12/21 05:26 RBC Morphology Normal (NORMAL) 08/12/21 05:26 Sodium 136 mmol/L (136-145) 08/12/21 05:26 Corrected Sodium 138 mmol/L (136-145) 08/12/21 05:26 Potassium 4.5 mmol/L (3.5-5.1) 08/12/21 05:26 Chloride 105 mmol/L (98-107) 08/12/21 05:26 Carbon Dioxide 17.4 mmol/L (21-32) L 08/12/21 05:26 BUN 93 mg/dL (7-18) H 08/12/21 05:26 Creatinine 4.20 mg/dL (0.70-1.30) H 08/12/21 05:26 Est GFR (MDRD) Af Amer 18 (>60) L 08/12/21 05:26 Est GFR (MDRD) Non-Af 15 (>60) L 08/12/21 05:26 Glucose 175 mg/dL (65-99) H 08/12/21 05:26 POC Glucose (mg/dL) 263 mg/dL (65-99) H 08/12/21 11:10 Calcium 8.0 mg/dL (8.5-10.1) L 08/12/21 05:26 Corrected Calcium 10.1 mg/dL (8.5-10.1) 08/12/21 05:26 Total Bilirubin 0.60 mg/dL (0.2-1.0) 08/12/21 05:26 AST 23 Units/L (15-37) 08/12/21 05:26 ALT 17 Units/L (12-78) 08/12/21 05:26 Alkaline Phosphatase 183 Units/L (46-116) H 08/12/21 05:26 Creatine Kinase 62 Units/L (39-308) 08/09/21 13:00 CK-MB (CK-2) < 1.0 ng/mL (0-4.0) 08/09/21 13:00 CK/CKMB % Calc 1.6 % (<4) 08/09/21 13:00 Troponin I < 0.02 ng/mL (0-1.5) 08/09/21 13:00 Total Protein 5.9 g/dL (6.4-8.2) L 08/12/21 05:26 Albumin 1.4 g/dL (3.4-5.0) L 08/12/21 05:26 Globulin 4.5 g/dL (2.5-4.5) 08/12/21 05:26 Albumin/Globulin Ratio 0.3 Ratio (1.1-2.1) L 08/12/21 05:26 Specimen Type Random urine 08/09/21 13:16 Urine Color Yellow (YELLOW) 08/09/21 13:16 Urine Appearance Cloudy (CLEAR) 08/09/21 13:16 Urine pH 5.0 (5.0 - 8.0) 08/09/21 13:16 Ur Specific [place] 1.015 (1.000-1.030) 08/09/21 13:16 Urine Protein 3+ (NEGATIVE) 08/09/21 13:16 Urine Glucose (UA) 4+ (NEGATIVE) 08/09/21 13:16 Urine Ketones Negative (NEGATIVE) 08/09/21 13:16 Urine Occult Blood 5+ (NEGATIVE) 08/09/21 13:16 Urine Nitrite Negative (NEGATIVE) 08/09/21 13:16 Urine Bilirubin Negative (NEGATIVE) 08/09/21 13:16 Urine Urobilinogen Normal (NORMAL) 08/09/21 13:16 Ur Leukocyte Esterase 2+ (NEGATIVE) 08/09/21 13:16 Urine RBC 5-10 /HPF (0-3) A 08/09/21 13:16 Urine WBC 30-50 /HPF (0-5) A 08/09/21 13:16 Ur Squamous Epith Cells Rare /HPF (NEGATIVE) 08/09/21 13:16 Amorphous Sediment 3+ /HPF (NEGATIVE) 08/09/21 13:16 Urine Bacteria 4+ /HPF (NEGATIVE) 08/09/21 13:16 Granular Casts Few /LPF (NEGATIVE) 08/09/21 13:16 Urine Mucus Numerous /HPF (NEGATIVE) 08/09/21 13:16 Ur Culture Indicated? Yes/culture set up 08/09/21 13:16 SARS-CoV-2 (PCR) Negative (NEGATIVE) 08/09/21 13:12 Influenza Type A (PCR) Negative (NEGATIVE) 08/09/21 13:12 Influenza Type B (PCR) Negative (NEGATIVE) 08/09/21 13:12 RSV (PCR) Negative (NEGATIVE) 08/09/21 13:12 Plan (1) Acute UTI: Status: Acute Plan: ADMIT, NORMAL SALINE AT 150ML/HR, INVANZ 0.5G IV DAILY, OTBS ACHS, HUMULIN R SLIDING SCALE, TYLENOL 650MG PO Q4H PRN, AND HIS HOME MEDICATIONS OF NORVASC, GLIPIZIDE, NORCO, AND TERAZOXIN WERE RESUMED. (2) Acute renal injury: Status: Acute (3) Hyperglycemia due to type 2 diabetes mellitus: Status: Acute (4) E coli bacteremia: Status: Acute
[2021-08-12] MEDS: ZOFRAN INJ 4 MG VIAL IVP PRN (14:04)
[2021-08-12] MEDS: SNACK - Diabetic Appropriate PO SCH (21:10)
[2021-08-12] MEDS: NORCO 5/325 MG TAB PO PRN (22:30)
[2021-08-13] MEDS: NS 1,000 ML IV 1,000 ML IV SCH ×6 (00:50→22:10)
[2021-08-13] MEDS: MYLICON TAB 80 MG CHEW PO SCH ×3 (05:36→21:00)
--- NOTE | 2021-08-13 05:44 | RAD ---
PROCEDURE: Chest X-ray 1 View .HISTORY: Dyspnea.TECHNIQUE: AP view .COMPARISON: 08/09/2021.TECHNICAL QUALITY: Satisfactory .FINDINGS:Normal size heart .Mediastinum and hilar regions show no masses or lymphadenopathy .Normal central vascularity .Mild consolidation right lung base that is appeared since previous study consistent with mild pneumonia with no pleural fluid or pneumothorax.No acute bony abnormality .IMPRESSION:Mild right basilar pneumonia.Electronically signed by: Franko John (Aug 13, 2021 05:42:04)
[2021-08-13 06:12] LABS: BASOPHILS # (AUTO) 0.1 X10^3/uL (0.0-0.1); BASOPHILS % (AUTO) 0.5 % (0.2-1.0); EOSINOPHILS # (AUTO) 0.1 x10^3/uL (0.0-0.2); EOSINOPHILS % (AUTO) 0.5 % (0.9-2.9); HEMATOCRIT 35.3 % (42.0-54.0); HEMOGLOBIN 11.7 g/dL (13.5-18.0); LYMPHOCYTES % (AUTO) 4.8 % (21.0-51.0); MEAN CORPUSCULAR HEMOGLOBIN 29.1 pg (27.0-34.0); MEAN CORPUSCULAR VOLUME 88.2 fL (80.0-100.0); MEAN PLATELET VOLUME 10.3 fL (7.4-11.0); MONOCYTES # (AUTO) 1.9 x10^3/uL (0.3-0.8); MONOCYTES % (AUTO) 9.8 % (0.0-13.0); NEUTROPHILS # (AUTO) 16.8 x10^3/uL (2.2-4.8); NEUTROPHILS % (AUTO) 84.4 % (42.0-75.0); PLATELET COUNT 168 X10^3/uL (150.0-450.0); RED BLOOD COUNT 4.01 X10^6/uL (4.7-6.0); RED CELL DISTRIBUTION WIDTH 15.1 % (11.6-16.5); WHITE BLOOD COUNT 19.9 X10^3/uL (3.6-10.0)
[2021-08-13 06:27] LABS: ALBUMIN 1.4 g/dL (3.4-5.0); CARBON DIOXIDE 18.5 mmol/L (21-32); COR CA(FOR HYPOALB) 10.1 mg/dL (8.5-10.1); CREATININE 4.12 mg/dL (0.70-1.30)
[2021-08-13] MEDS ORDERED: NS 1,000 ML IV 1,000 ML IV ONE ×2 (09:50→09:52)
[2021-08-13] MEDS: GLUCOTROL XL 24-HR PO SCH (09:56)
[2021-08-13] MEDS: INVANZ INJ 1 GM VIAL 0.5 GM in NS 50 ML IV 50 ML IV SCH (09:56)
[2021-08-13] MEDS: HYTRIN PO SCH (09:56)
[2021-08-13] MEDS: PROTONIX TAB 40 MG PO SCH ×2 (09:57→20:39)
[2021-08-13] MEDS: NORVASC TAB 5 MG PO SCH (09:57)
[2021-08-13] MEDS: LOVENOX INJ 30 MG SYR SC SCH (09:58)
[2021-08-13] MEDS: NORCO 5/325 MG TAB PO PRN ×2 (10:18→22:28)
[2021-08-13 10:28] LABS: BILIRUBIN,URINE NEGATIVE (NEGATIVE); BLOOD/HEMOGLOBIN,URINE 5+ (NEGATIVE); GLUCOSE, URINE 3+ (NEGATIVE); KETONES,URINE NEGATIVE (NEGATIVE); LEUKOCYTE ESTERASE ,URINE 3+ (NEGATIVE); NITRITES,URINE NEGATIVE (NEGATIVE); PROTEIN,URINE 2+ (NEGATIVE); UROBILINOGEN,URINE NORMAL (NORMAL)
[2021-08-13 10:58] LABS: APPEARANCE,URINE CLEAR (CLEAR); COLOR,URINE YELLOW (YELLOW)
[2021-08-13 10:59] LABS: BACTERIA,URINE TRACE /HPF (NEGATIVE); SQUAMOUS EPITHELIAL CELL,UR RARE /HPF (NEGATIVE)
[2021-08-13 11:16] LABS: AMORPHOUS SEDIMENT,UR TRACE /HPF (NEGATIVE)
[2021-08-13] MEDS: DIFLUCAN PO SCH (12:09)
[2021-08-13] MEDS: HumuLIN R SC PRN (12:10)
[2021-08-13] MEDS: NYSTATIN POWDER TOP SCH ×2 (12:10→20:40)
[2021-08-13] MEDS ORDERED: GENTAMICIN INJ 80 MG in NS 100 ML IV 100 ML IV SCH (14:00)
[2021-08-13] MEDS: GENTAMICIN INJ 160 MG in NS 100 ML IV 100 ML IV SCH (14:04)
[2021-08-13] MEDS: SNACK - Diabetic Appropriate PO SCH (20:40)
[2021-08-13] MEDS: ROBITUSSIN DM PO PRN (22:28)
[2021-08-14] MEDS: NS 1,000 ML IV 1,000 ML IV SCH ×3 (04:51→21:14)
[2021-08-14] MEDS: MYLICON TAB 80 MG CHEW PO SCH ×3 (05:20→21:00)
[2021-08-14] MEDS: NORCO 5/325 MG TAB PO PRN ×2 (05:21→22:30)
--- NOTE | 2021-08-14 05:56 | RAD ---
PROCEDURE: Chest X-ray 1 View .HISTORY: Dyspnea.TECHNIQUE: AP view .COMPARISON: 08/13/2021.TECHNICAL QUALITY: Satisfactory .FINDINGS:Normal size heart .Mediastinum and hilar regions show no masses or lymphadenopathy .Normal central vascularity .Improved pneumonia right base. No pleural fluid or pneumothorax.No acute bony abnormality .IMPRESSION:Improving right basilar pneumonia.Electronically signed by: Franko John (Aug 14, 2021 05:54:13)
[2021-08-14 06:17] LABS: BASOPHILS % (AUTO) 0.2 % (0.2-1.0); EOSINOPHILS # (AUTO) 0.1 x10^3/uL (0.0-0.2); EOSINOPHILS % (AUTO) 0.6 % (0.9-2.9); HEMATOCRIT 35.5 % (42.0-54.0); HEMOGLOBIN 11.8 g/dL (13.5-18.0); LYMPHOCYTES # (AUTO) 0.9 X10^3/uL (1.3-2.9); LYMPHOCYTES % (AUTO) 5.4 % (21.0-51.0); MEAN CORPUSCULAR HEMOGLOBIN 29.4 pg (27.0-34.0); MEAN CORPUSCULAR HGB CONC 33.3 g/dL (33.0-35.0); MEAN CORPUSCULAR VOLUME 88.3 fL (80.0-100.0); MEAN PLATELET VOLUME 10.2 fL (7.4-11.0); MONOCYTES # (AUTO) 1.4 x10^3/uL (0.3-0.8); MONOCYTES % (AUTO) 8.5 % (0.0-13.0); NEUTROPHILS # (AUTO) 14.1 x10^3/uL (2.2-4.8); NEUTROPHILS % (AUTO) 85.3 % (42.0-75.0); PLATELET COUNT 178 X10^3/uL (150.0-450.0); RED BLOOD COUNT 4.01 X10^6/uL (4.7-6.0); RED CELL DISTRIBUTION WIDTH 15.2 % (11.6-16.5); WHITE BLOOD COUNT 16.5 X10^3/uL (3.6-10.0)
[2021-08-14 06:30] LABS: ALBUMIN 1.3 g/dL (3.4-5.0); CALCIUM 7.9 mg/dL (8.5-10.1); CARBON DIOXIDE 17.7 mmol/L (21-32); COR CA(FOR HYPOALB) 10.1 mg/dL (8.5-10.1); CREATININE 3.98 mg/dL (0.70-1.30); TOTAL PROTEIN 5.8 g/dL (6.4-8.2)
[2021-08-14] MEDS: GLUCOTROL XL 24-HR PO SCH (09:30)
[2021-08-14] MEDS: HYTRIN PO SCH (09:30)
[2021-08-14] MEDS: INVANZ INJ 1 GM VIAL 0.5 GM in NS 50 ML IV 50 ML IV SCH (09:30)
[2021-08-14] MEDS: NYSTATIN POWDER TOP SCH ×2 (09:30→21:00)
[2021-08-14] MEDS: DIFLUCAN PO SCH (09:30)
[2021-08-14] MEDS: NORVASC TAB 5 MG PO SCH (09:30)
[2021-08-14] MEDS: PROTONIX TAB 40 MG PO SCH ×2 (09:30→21:00)
[2021-08-14] MEDS: LOVENOX INJ 30 MG SYR SC SCH (11:09)
[2021-08-14] MEDS: ALBUMIN HUMAN 25%- 100 ML 100 ML IV SCH (11:26)
--- NOTE | 2021-08-14 11:37 | PCM.PROG ---
Progress Note - Progress Note for Day of Date of Exam: 08/13/21 - Subjective Subjective: IS BEING TREATED FOR E.COLI BACTEREMIA, E.COLI UTI, ACUTE RENAL INJURY, HYPERGLYCEMIA, AND GENERALIZED WEAKNESS. TODAY, HE IS ALERT AND ORIENTED, LYING IN BED ON MORNING ROUNDS. HE CONTINUES WITH COMPLAINTS OF WEAKNESS, LOWER ABDOMINAL PAIN, AND ABDOMINAL SWELLING. HE REPORTS THAT EVEN AFTER URINATING, HE STILL FEELS LIKE HIS BLADDER IS FULL. PATIENTS SPOUSE REPORTS THAT THEY WERE TOLD BY THE LIVE HANGER AT A RECENT APPOINTMENT, THAT HIS BLADDER WAS NOT COMPLETELY EMPTYING ON URINATION. ON EXAMINATION TODAY, HEART IS REGULAR IN RATE AND RHYTHM. BILATERAL LUNGS CLEAR TO AUSCULTATION. ABDOMEN IS DISTENDED AND NOTED WITH SUPRAPUBIC TENDERNESS TO PALPATION. TRACE EDEMA NOTED TO LOWER EXTREMITIES. HIS VITALS THIS MORNING ARE: 98.8-78-18-94%-132/63. LABS WERE OBTAINED. WBC 19.9, HGB 11.7, BUN 93, CREATININE 4.20, GFR 15, GLUCOSE 175, CALCIUM 8.0, ALK PHOS 183, TOTAL PROTEIN 5.9, ALBUMIN 1.4. URINE AND BLOOD CULTURES REVEALED GROWTH OF E.COLI. REPEAT BLOOD AND URINE CULTURES WERE SET UP. E.COLI SENSITIVE TO THE INVANZ THAT HE IS ON. AN ABDOMEN/PELVIS CT WITHOUT CONTRAST WAS OBTAINED ON FRIDAY AND REVEALED: Moderate bilateral hydronephrosis to the level of the urinary bladder without obstructing stones or mass. Given the dilatation of the urinary bladder this may represent reflux of urine in the setting of chronic bladder outlet obstruction or neuropathy. A patulous right left ureter is also consideration. Hepatomegaly and steatosis. Small bilateral pleural effusions with small pericardial effusion. WE OBTAINED A CHEST XRAY THIS MORNING. IT REVEALED: Mild right basilar pneumonia. HE IS CURRENTLY RECEIVING NORMAL SALINE AT 75ML/HR, INVANZ 0.5G IV DAILY, OTBS ACHS, HUMULIN R SLIDING SCALE, TYLENOL 650MG PO Q4H PRN, COLACE 200MG PO HS, MILK OF MAGNESIA 30ML PO BID, ZOFRAN 4MG IV Q6H PRN, MYLICON 80MG PO TID, ROBITUSSIN DM 10ML PO Q4H PRN, AND HIS HOME MEDICATIONS OF NORVASC, GLIPIZIDE, NORCO, AND TERAZOXIN WERE RESUMED. TODAY, WE WILL ADD GENTAMICIN SULFATE IV DAILY. WE WILL BOLUS TWO LITERS OF NORMAL SALINE AND THEN RUN FLUIDS AT 150 ML/HR. WE WILL INSERT A RODRIGUEZ CATHETER DUE TO URINARY RETENTION AND TO MEASURE ACCURATE URINE OUTPUT. OTHERWISE, WE PLAN TO FOLLOW UP WITH AM LABS AND CONTINUE TO MONITOR. TIME SPENT ON CLINICAL ASSESSMENT, REVIEWING LABS AND IMAGING, DECISION MAKING, AND DOCUMENTATION GREATER THAN 45 MINUTES. - Past Medical Family Social History Past Med/Fam/Surg Hx: No changes since H&P Allergies: Allergies codeine Allergy (Verified 08/09/21 12:43) erythromycin base Allergy (Verified 08/09/21 12:43) shellfish derived Allergy (Verified 08/09/21 12:43) - Review of Systems ROS: No change since H&P - Vital Signs and I&O's Vital Signs: Temperature 98.3 F Pulse Rate [Radial] 64 Pulse Rate 102 Respiratory Rate 20 Blood Pressure [Left Arm] 121/64 Blood Pressure 118/59 O2 Sat by Pulse Oximetry 89 Intake and Output: Intake & Output 08/11/21 08/12/21 08/13/21 08/14/21 11:59 11:59 11:59 11:59 Intake Total 5961 / 5961 4490 / 4490 4315 / 4315 3608 / 3608 Output Total 675 / 675 1810 / 1810 3200 / 3200 Balance 5286 / 5286 4490 / 4490 2505 / 2505 408 / 408 - Physical Exam Oriented: Normal Eyes: Normal Ear: Normal Nose: Normal Throat: Normal Respiratory: Normal Cardiovascular: Normal : Dysuria Auscultation: Bowel Sounds: Normal Palpation: Normal Tenderness: Suprapubic, Mild, Other (DISTENDED ) Skin: Normal Musculoskeletal: Normal Psychiatric: Normal Mood Description: Calm Affect: Normal Speech Pattern: Clear, Appropriate - Laboratory and Diagnostics Result Diagrams: 08/14/21 05:11 08/14/21 05:11 Labs: 08/13/21 10:00 Urine,[place] Urine Culture - Preliminary 08/09/21 13:16 Urine,Clean Catch Urine Culture - Final Escherichia Coli 08/10/21 06:00 Blood Blood Culture - Final Escherichia Coli 08/10/21 05:38 Blood Blood Culture - Final Escherichia Coli Laboratory WBC 16.5 X10^3/uL (3.6-10.0) H 08/14/21 05:11 RBC 4.01 X10^6/uL (4.7-6.0) L 08/14/21 05:11 Hgb 11.8 g/dL (13.5-18.0) L 08/14/21 05:11 Hct 35.5 % (42.0-54.0) L 08/14/21 05:11 MCV 88.3 fL (80.0-100.0) 08/14/21 05:11 MCH 29.4 pg (27.0-34.0) 08/14/21 05:11 MCHC 33.3 g/dL (33.0-35.0) 08/14/21 05:11 RDW 15.2 % (11.6-16.5) 08/14/21 05:11 Plt Count 178 X10^3/uL (150.0-450.0) 08/14/21 05:11 Plt Count Comment Adequate (ADEQUATE) 08/12/21 05:26 MPV 10.2 fL (7.4-11.0) 08/14/21 05:11 Neut % (Auto) 85.3 % (42.0-75.0) H 08/14/21 05:11 Lymph % (Auto) 5.4 % (21.0-51.0) L 08/14/21 05:11 [place] % (Auto) 8.5 % (0.0-13.0) 08/14/21 05:11 Eos % (Auto) 0.6 % (0.9-2.9) L 08/14/21 05:11 Baso % (Auto) 0.2 % (0.2-1.0) 08/14/21 05:11 Neut # (Auto) 14.1 x10^3/uL (2.2-4.8) H 08/14/21 05:11 Lymph # (Auto) 0.9 X10^3/uL (1.3-2.9) L 08/14/21 05:11 [place] # (Auto) 1.4 x10^3/uL (0.3-0.8) H 08/14/21 05:11 Eos # (Auto) 0.1 x10^3/uL (0.0-0.2) 08/14/21 05:11 Baso # (Auto) 0.0 X10^3/uL (0.0-0.1) 08/14/21 05:11 Absolute Nucleated RBC 0.0 /100WBC 08/14/21 05:11 Total Counted 100 08/12/21 05:26 Neutrophils % (Manual) 90 % (39-76) H 08/12/21 05:26 Band Neutrophils % 7 % (0-10) 08/11/21 05:30 Lymphocytes % (Manual) 4 % (13-43) L 08/12/21 05:26 Monocytes % (Manual) 6 % (4-9) 08/12/21 05:26 Metamyelocytes % 3 08/09/21 13:00 Plt Morphology Comment Normal (NORMAL) 08/12/21 05:26 RBC Morphology Normal (NORMAL) 08/12/21 05:26 Sodium 143 mmol/L (136-145) 08/14/21 05:11 Corrected Sodium 145 mmol/L (136-145) 08/14/21 05:11 Potassium 4.7 mmol/L (3.5-5.1) 08/14/21 05:11 Chloride 113 mmol/L (98-107) H 08/14/21 05:11 Carbon Dioxide 17.7 mmol/L (21-32) L 08/14/21 05:11 BUN 82 mg/dL (7-18) H 08/14/21 05:11 Creatinine 3.98 mg/dL (0.70-1.30) H 08/14/21 05:11 Est GFR (MDRD) Af Amer 19 (>60) L 08/14/21 05:11 Est GFR (MDRD) Non-Af 16 (>60) L 08/14/21 05:11 Glucose 187 mg/dL (65-99) H 08/14/21 05:11 POC Glucose (mg/dL) 169 mg/dL (65-99) H 08/14/21 04:59 Calcium 7.9 mg/dL (8.5-10.1) L 08/14/21 05:11 Corrected Calcium 10.1 mg/dL (8.5-10.1) 08/14/21 05:11 Total Bilirubin 0.40 mg/dL (0.2-1.0) 08/14/21 05:11 AST 28 Units/L (15-37) 08/14/21 05:11 ALT 15 Units/L (12-78) 08/14/21 05:11 Alkaline Phosphatase 207 Units/L (46-116) H 08/14/21 05:11 Creatine Kinase 62 Units/L (39-308) 08/09/21 13:00 CK-MB (CK-2) < 1.0 ng/mL (0-4.0) 08/09/21 13:00 CK/CKMB % Calc 1.6 % (<4) 08/09/21 13:00 Troponin I < 0.02 ng/mL (0-1.5) 08/09/21 13:00 Total Protein 5.8 g/dL (6.4-8.2) L 08/14/21 05:11 Albumin 1.3 g/dL (3.4-5.0) L 08/14/21 05:11 Globulin 4.5 g/dL (2.5-4.5) 08/14/21 05:11 Albumin/Globulin Ratio 0.3 Ratio (1.1-2.1) L 08/14/21 05:11 Specimen Type Catherized urine 08/13/21 10:00 Urine Color Yellow (YELLOW) 08/13/21 10:00 Urine Appearance Clear (CLEAR) 08/13/21 10:00 Urine pH 5.0 (5.0 - 8.0) 08/13/21 10:00 Ur Specific [place] 1.010 (1.000-1.030) 08/13/21 10:00 Urine Protein 2+ (NEGATIVE) 08/13/21 10:00 Urine Glucose (UA) 3+ (NEGATIVE) 08/13/21 10:00 Urine Ketones Negative (NEGATIVE) 08/13/21 10:00 Urine Occult Blood 5+ (NEGATIVE) 08/13/21 10:00 Urine Nitrite Negative (NEGATIVE) 08/13/21 10:00 Urine Bilirubin Negative (NEGATIVE) 08/13/21 10:00 Urine Urobilinogen Normal (NORMAL) 08/13/21 10:00 Ur Leukocyte Esterase 3+ (NEGATIVE) 08/13/21 10:00 Urine RBC 3-5 /HPF (0-3) A 08/13/21 10:00 Urine WBC 20-30 /HPF (0-5) A 08/13/21 10:00 Ur Squamous Epith Cells Rare /HPF (NEGATIVE) 08/13/21 10:00 Amorphous Sediment Trace /HPF (NEGATIVE) 08/13/21 10:00 Urine Bacteria Trace /HPF (NEGATIVE) 08/13/21 10:00 Granular Casts Few /LPF (NEGATIVE) 08/09/21 13:16 Urine Mucus Numerous /HPF (NEGATIVE) 08/09/21 13:16 Ur Culture Indicated? Yes/culture set up 08/13/21 10:00 SARS-CoV-2 (PCR) Negative (NEGATIVE) 08/09/21 13:12 Influenza Type A (PCR) Negative (NEGATIVE) 08/09/21 13:12 Influenza Type B (PCR) Negative (NEGATIVE) 08/09/21 13:12 RSV (PCR) Negative (NEGATIVE) 08/09/21 13:12 - Plan (1) E coli bacteremia Status: Acute Plan: NORMAL SALINE BOLUS X 2, NORMAL SALINE AT 150 ML/HR, GENTAMYCIN IV DAILY, INVANZ 0.5MG IV DAILY, CONTINUE OTHER PLAN OF CARE (2) Acute UTI Status: Acute (3) Pneumonia Status: Acute Qualifiers: Pneumonia type: due to unspecified organism Laterality: right Lung location: lower lobe of lung Qualified Code(s): J18.9 - Pneumonia, unspecified organism Plan: SUPPLEMENTAL OXYGEN, IV ANTIBIOTICS, DUONEBS, MONITOR LABS AND CHEST XRAY (4) Acute renal injury Status: Acute (5) Hyperglycemia due to type 2 diabetes mellitus Status: Acute
--- NOTE | 2021-08-14 11:49 | PCM.PROG ---
Progress Note - Progress Note for Day of Date of Exam: 08/14/21 - Subjective Subjective: IS BEING TREATED FOR E.COLI BACTEREMIA, E.COLI UTI, PNEUMONIA, ACUTE RENAL INJURY, HYPERGLYCEMIA, AND GENERALIZED WEAKNESS. TODAY, HE IS ALERT AND ORIENTED, LYING IN BED ON MORNING ROUNDS. HE CONTINUES WITH COMPLAINTS OF WEAKNESS, LOWER ABDOMINAL PAIN, AND ABDOMINAL SWELLING. ON EXAMI NATION TODAY, HEART IS REGULAR IN RATE AND RHYTHM. BILATERAL LUNGS NOTED WITH DIMINISHED LUNDS. ABDOMEN CONTINUES TO BE DISTENDED AND NOTED WITH SUPRAPUBIC TENDERNESS TO PALPATION. HIS VITALS THIS MORNING ARE: 98.3-64-20-90%NC-121/64. LABS WERE OBTAINED. WBC DECREASED TO 16.5. BUN/CREATININE SLIGHTLY IMRPOVED AT 82/3.98. ALBUMIN LOW AT 1.3. URINE AND BLOOD CULTURES REVEALED GROWTH OF E.COLI. REPEAT BLOOD AND URINE CULTURES PENDING. WE OBTAINED A CHEST XRAY THIS MORNING. IT REVEALED: Improving right basilar pneumonia. HE IS CURRENTLY RECEIVING NORMAL SALINE AT 150ML/HR, INVANZ 0.5G IV DAILY, GENTAMICIN IV DAILY, OTBS ACHS, HUMULIN R SLIDING SCALE, TYLENOL 650MG PO Q4H PRN, COLACE 200MG PO HS, MILK OF MAGNESIA 30ML PO BID, ZOFRAN 4MG IV Q6H PRN, MYLICON 80MG PO TID, ROBITUSSIN DM 10ML PO Q4H PRN, AND HIS HOME MEDICATIONS OF NORVASC, GLIPIZIDE, NORCO, AND TERAZOXIN WERE RESUMED. TODAY, WE WILL ADD ALBUMIN 25% IV DAILY. WE WILL REPEAT A FOLLOW UP ABDOMEN/PELVIS CT WITHOUT CONTRAST IN THE MORNING. OTHERWISE, WE PLAN TO FOLLOW UP WITH AM LABS AND CONTINUE TO MONITOR. TIME SPENT ON CLINICAL ASSESSMENT, REVIEWING LABS AND IMAGING, DECISION MAKING, AND DOCUMENTATION GREATER THAN 45 MINUTES. - Past Medical Family Social History Past Med/Fam/Surg Hx: No changes since H&P Allergies: Allergies codeine Allergy (Verified 08/09/21 12:43) erythromycin base Allergy (Verified 08/09/21 12:43) shellfish derived Allergy (Verified 08/09/21 12:43) - Review of Systems ROS: No change since H&P - Vital Signs and I&O's Vital Signs: Temperature 98.3 F Pulse Rate [Radial] 64 Pulse Rate 102 Respiratory Rate 20 Blood Pressure [Left Arm] 121/64 Blood Pressure 118/59 O2 Sat by Pulse Oximetry 89 Intake and Output: Intake & Output 08/11/21 08/12/21 08/13/21 08/14/21 11:59 11:59 11:59 11:59 Intake Total 5961 / 5961 4490 / 4490 4315 / 4315 3608 / 3608 Output Total 675 / 675 1810 / 1810 3200 / 3200 Balance 5286 / 5286 4490 / 4490 2505 / 2505 408 / 408 - Physical Exam Oriented: Normal Eyes: Normal Ear: Normal Nose: Normal Throat: Normal Respiratory: Normal Cardiovascular: Normal : Dysuria Auscultation: Bowel Sounds: Normal Palpation: Normal Tenderness: Suprapubic, Mild, Other (DISTENDED ) Skin: Normal Musculoskeletal: Normal Psychiatric: Normal Mood Description: Calm Affect: Normal Speech Pattern: Clear, Appropriate - Laboratory and Diagnostics Result Diagrams: 08/14/21 05:11 08/14/21 05:11 Labs: 08/12/21 12:05 Blood Blood Culture - Preliminary 08/12/21 11:55 Blood Blood Culture - Preliminary 08/13/21 10:00 Urine,[place] Urine Culture - Preliminary 08/09/21 13:16 Urine,Clean Catch Urine Culture - Final Escherichia Coli 08/10/21 06:00 Blood Blood Culture - Final Escherichia Coli 08/10/21 05:38 Blood Blood Culture - Final Escherichia Coli Laboratory WBC 16.5 X10^3/uL (3.6-10.0) H 08/14/21 05:11 RBC 4.01 X10^6/uL (4.7-6.0) L 08/14/21 05:11 Hgb 11.8 g/dL (13.5-18.0) L 08/14/21 05:11 Hct 35.5 % (42.0-54.0) L 08/14/21 05:11 MCV 88.3 fL (80.0-100.0) 08/14/21 05:11 MCH 29.4 pg (27.0-34.0) 08/14/21 05:11 MCHC 33.3 g/dL (33.0-35.0) 08/14/21 05:11 RDW 15.2 % (11.6-16.5) 08/14/21 05:11 Plt Count 178 X10^3/uL (150.0-450.0) 08/14/21 05:11 Plt Count Comment Adequate (ADEQUATE) 08/12/21 05:26 MPV 10.2 fL (7.4-11.0) 08/14/21 05:11 Neut % (Auto) 85.3 % (42.0-75.0) H 08/14/21 05:11 Lymph % (Auto) 5.4 % (21.0-51.0) L 08/14/21 05:11 [place] % (Auto) 8.5 % (0.0-13.0) 08/14/21 05:11 Eos % (Auto) 0.6 % (0.9-2.9) L 08/14/21 05:11 Baso % (Auto) 0.2 % (0.2-1.0) 08/14/21 05:11 Neut # (Auto) 14.1 x10^3/uL (2.2-4.8) H 08/14/21 05:11 Lymph # (Auto) 0.9 X10^3/uL (1.3-2.9) L 08/14/21 05:11 [place] # (Auto) 1.4 x10^3/uL (0.3-0.8) H 08/14/21 05:11 Eos # (Auto) 0.1 x10^3/uL (0.0-0.2) 08/14/21 05:11 Baso # (Auto) 0.0 X10^3/uL (0.0-0.1) 08/14/21 05:11 Absolute Nucleated RBC 0.0 /100WBC 08/14/21 05:11 Total Counted 100 08/12/21 05:26 Neutrophils % (Manual) 90 % (39-76) H 08/12/21 05:26 Band Neutrophils % 7 % (0-10) 08/11/21 05:30 Lymphocytes % (Manual) 4 % (13-43) L 08/12/21 05:26 Monocytes % (Manual) 6 % (4-9) 08/12/21 05:26 Metamyelocytes % 3 08/09/21 13:00 Plt Morphology Comment Normal (NORMAL) 08/12/21 05:26 RBC Morphology Normal (NORMAL) 08/12/21 05:26 Sodium 143 mmol/L (136-145) 08/14/21 05:11 Corrected Sodium 145 mmol/L (136-145) 08/14/21 05:11 Potassium 4.7 mmol/L (3.5-5.1) 08/14/21 05:11 Chloride 113 mmol/L (98-107) H 08/14/21 05:11 Carbon Dioxide 17.7 mmol/L (21-32) L 08/14/21 05:11 BUN 82 mg/dL (7-18) H 08/14/21 05:11 Creatinine 3.98 mg/dL (0.70-1.30) H 08/14/21 05:11 Est GFR (MDRD) Af Amer 19 (>60) L 08/14/21 05:11 Est GFR (MDRD) Non-Af 16 (>60) L 08/14/21 05:11 Glucose 187 mg/dL (65-99) H 08/14/21 05:11 POC Glucose (mg/dL) 169 mg/dL (65-99) H 08/14/21 04:59 Calcium 7.9 mg/dL (8.5-10.1) L 08/14/21 05:11 Corrected Calcium 10.1 mg/dL (8.5-10.1) 08/14/21 05:11 Total Bilirubin 0.40 mg/dL (0.2-1.0) 08/14/21 05:11 AST 28 Units/L (15-37) 08/14/21 05:11 ALT 15 Units/L (12-78) 08/14/21 05:11 Alkaline Phosphatase 207 Units/L (46-116) H 08/14/21 05:11 Creatine Kinase 62 Units/L (39-308) 08/09/21 13:00 CK-MB (CK-2) < 1.0 ng/mL (0-4.0) 08/09/21 13:00 CK/CKMB % Calc 1.6 % (<4) 08/09/21 13:00 Troponin I < 0.02 ng/mL (0-1.5) 08/09/21 13:00 Total Protein 5.8 g/dL (6.4-8.2) L 08/14/21 05:11 Albumin 1.3 g/dL (3.4-5.0) L 08/14/21 05:11 Globulin 4.5 g/dL (2.5-4.5) 08/14/21 05:11 Albumin/Globulin Ratio 0.3 Ratio (1.1-2.1) L 08/14/21 05:11 Specimen Type Catherized urine 08/13/21 10:00 Urine Color Yellow (YELLOW) 08/13/21 10:00 Urine Appearance Clear (CLEAR) 08/13/21 10:00 Urine pH 5.0 (5.0 - 8.0) 08/13/21 10:00 Ur Specific [place] 1.010 (1.000-1.030) 08/13/21 10:00 Urine Protein 2+ (NEGATIVE) 08/13/21 10:00 Urine Glucose (UA) 3+ (NEGATIVE) 08/13/21 10:00 Urine Ketones Negative (NEGATIVE) 08/13/21 10:00 Urine Occult Blood 5+ (NEGATIVE) 08/13/21 10:00 Urine Nitrite Negative (NEGATIVE) 08/13/21 10:00 Urine Bilirubin Negative (NEGATIVE) 08/13/21 10:00 Urine Urobilinogen Normal (NORMAL) 08/13/21 10:00 Ur Leukocyte Esterase 3+ (NEGATIVE) 08/13/21 10:00 Urine RBC 3-5 /HPF (0-3) A 08/13/21 10:00 Urine WBC 20-30 /HPF (0-5) A 08/13/21 10:00 Ur Squamous Epith Cells Rare /HPF (NEGATIVE) 08/13/21 10:00 Amorphous Sediment Trace /HPF (NEGATIVE) 08/13/21 10:00 Urine Bacteria Trace /HPF (NEGATIVE) 08/13/21 10:00 Granular Casts Few /LPF (NEGATIVE) 08/09/21 13:16 Urine Mucus Numerous /HPF (NEGATIVE) 08/09/21 13:16 Ur Culture Indicated? Yes/culture set up 08/13/21 10:00 SARS-CoV-2 (PCR) Negative (NEGATIVE) 08/09/21 13:12 Influenza Type A (PCR) Negative (NEGATIVE) 08/09/21 13:12 Influenza Type B (PCR) Negative (NEGATIVE) 08/09/21 13:12 RSV (PCR) Negative (NEGATIVE) 08/09/21 13:12 - Plan (1) E coli bacteremia Status: Acute Plan: NORMAL SALINE AT 150 ML/HR, GENTAMYCIN IV DAILY, INVANZ 0.5MG IV DAILY, ALBUMIN 25% IV DAILY, CONTINUE OTHER PLAN OF CARE (2) Acute UTI Status: Acute (3) Pneumonia Status: Acute Qualifiers: Pneumonia type: due to unspecified organism Laterality: right Lung location: lower lobe of lung Qualified Code(s): J18.9 - Pneumonia, unspecified organism Plan: SUPPLEMENTAL OXYGEN, IV ANTIBIOTICS, DUONEBS, MONITOR LABS AND CHEST XRAY (4) Acute renal injury Status: Acute (5) Hyperglycemia due to type 2 diabetes mellitus Status: Acute Qualifiers: Diabetes mellitus intermission coordinator insulin use: unspecified intermission coordinator insulin use status Qualified Code(s): E11.65 - Type 2 diabetes mellitus with hyperglycemia Plan: OTBS ACHS, HUMULIN R SLIDING SCALE
[2021-08-14] MEDS: GENTAMICIN INJ 160 MG in NS 100 ML IV 100 ML IV SCH (15:25)
[2021-08-14] MEDS: DUONEB 0.5 MG/3 MG (3 mL) NEB SCH ×3 (16:40→20:40)
[2021-08-14] MEDS: MILK OF MAGNESIA PO SCH (21:00)
[2021-08-14] MEDS: COLACE CAP 100 MG PO SCH (21:00)
[2021-08-14] MEDS: SNACK - Diabetic Appropriate PO SCH (21:15)
[2021-08-14] MEDS: ROBITUSSIN DM PO PRN (22:30)
[2021-08-15] MEDS: NS 1,000 ML IV 1,000 ML IV SCH ×3 (04:01→20:36)
[2021-08-15] MEDS: MYLICON TAB 80 MG CHEW PO SCH ×3 (06:00→21:08)
[2021-08-15 06:14] LABS: ALBUMIN 1.6 g/dL (3.4-5.0); BASOPHILS # (AUTO) 0.1 X10^3/uL (0.0-0.1); BASOPHILS % (AUTO) 0.3 % (0.2-1.0); CALCIUM 7.8 mg/dL (8.5-10.1); CARBON DIOXIDE 15.6 mmol/L (21-32); COR CA(FOR HYPOALB) 9.7 mg/dL (8.5-10.1); CREATININE 3.76 mg/dL (0.70-1.30); EOSINOPHILS # (AUTO) 0.4 x10^3/uL (0.0-0.2); EOSINOPHILS % (AUTO) 1.7 % (0.9-2.9); HEMATOCRIT 32.9 % (42.0-54.0); HEMOGLOBIN 10.8 g/dL (13.5-18.0); LYMPHOCYTES # (AUTO) 0.8 X10^3/uL (1.3-2.9); LYMPHOCYTES % (AUTO) 3.7 % (21.0-51.0); MEAN CORPUSCULAR HEMOGLOBIN 28.7 pg (27.0-34.0); MEAN CORPUSCULAR HGB CONC 32.9 g/dL (33.0-35.0); MEAN CORPUSCULAR VOLUME 87.4 fL (80.0-100.0); MEAN PLATELET VOLUME 9.9 fL (7.4-11.0); MONOCYTES # (AUTO) 1.6 x10^3/uL (0.3-0.8); MONOCYTES % (AUTO) 7.8 % (0.0-13.0); NEUTROPHILS % (AUTO) 86.5 % (42.0-75.0); PLATELET COUNT 215 X10^3/uL (150.0-450.0); RED BLOOD COUNT 3.76 X10^6/uL (4.7-6.0); RED CELL DISTRIBUTION WIDTH 14.8 % (11.6-16.5); TOTAL PROTEIN 5.8 g/dL (6.4-8.2); WHITE BLOOD COUNT 20.8 X10^3/uL (3.6-10.0)
--- NOTE | 2021-08-15 06:24 | RAD ---
HISTORYShortness of breathSTUDYChest AP [id number] heart is within normal limits in size. The [place] are now prominent and somewhat indistinct in the interstitium is prominent suggestive of mild interstitial edema. No definite areas of consolidation are identified. No pleural effusions are identified. Bony thorax is unremarkable.IMPRESSIONInterval development of hilar prominence and indistinctness and interstitial prominence suggestive of mild interstitial edemaElectronically signed by: LANETTE GARZON (Aug 15, 2021 06:23:13)
[2021-08-15] MEDS: DUONEB 0.5 MG/3 MG (3 mL) NEB SCH ×4 (09:30→21:54)
[2021-08-15] MEDS: NORVASC TAB 5 MG PO SCH (09:31)
[2021-08-15] MEDS: HYTRIN PO SCH (09:31)
[2021-08-15] MEDS: LOVENOX INJ 30 MG SYR SC SCH (09:32)
[2021-08-15] MEDS: GLUCOTROL XL 24-HR PO SCH (09:32)
[2021-08-15] MEDS: PROTONIX TAB 40 MG PO SCH ×2 (09:32→20:37)
[2021-08-15] MEDS: ALBUMIN HUMAN 25%- 100 ML 100 ML IV SCH (09:32)
[2021-08-15] MEDS: DIFLUCAN PO SCH (09:33)
[2021-08-15] MEDS: MILK OF MAGNESIA PO SCH ×2 (09:33→20:37)
[2021-08-15] MEDS: NYSTATIN POWDER TOP SCH ×2 (10:00→20:38)
[2021-08-15] MEDS: INVANZ INJ 1 GM VIAL 0.5 GM in NS 50 ML IV 50 ML IV SCH (10:00)
--- NOTE | 2021-08-15 10:18 | PCM.PROG ---
Progress Note - Progress Note for Day of Date of Exam: 08/15/21 - Subjective Subjective: IS BEING TREATED FOR E.COLI BACTEREMIA, E.COLI UTI, PNEUMONIA, ACUTE RENAL INJURY, HYPERGLYCEMIA, AND GENERALIZED WEAKNESS. TODAY, HE IS ALERT AND ORIENTED, LYING IN BED ON MORNING ROUNDS. HE CONTINUES WITH COMPLAINTS OF WEAKNESS, LOWER ABDOMINAL PAIN, AND ABDOMINAL SWELLING. HE ADMITS TO SLIGHT IMPROVEMENT IN SYMPTOMS TODAY. ON EXAMINATION TODAY, HEART IS REGULAR IN RATE AND RHYTHM. BILATERAL LUNGS NOTED WITH DIMINISHED LUNDS. ABDOMEN CONTINUES TO BE DISTENDED AND NOTED WITH SUPRAPUBIC TENDERNESS TO PALPATION. HIS VITALS THIS MORNING ARE: 100.2-95-22-90%-136/71. LABS WERE OBTAINED. WBC INCREASED TO 20.8, HGB 10.8, BUN/CREATININE SLIGHTLY IMRPOVED AT 73/3.76, ALBUMIN 1.6, BNP 732. URINE AND BLOOD CULTURES REVEALED GROWTH OF E.COLI. REPEAT BLOOD AND URINE CULTURES PENDING. WE OBTAINED A CHEST XRAY THIS MORNING. IT REVEALED: Interval development of hilar prominence and indistinctness and interstitial prominence suggestive of mild interstitial edema. HE IS CURRENTLY RECEIVING NORMAL SALINE AT 150ML/HR, ALBUMIN 25% IV DAILY, INVANZ 0.5G IV DAILY, GENTAMICIN IV DAILY, OTBS ACHS, HUMULIN R SLIDING SCALE, TYLENOL 650MG PO Q4H PRN, COLACE 200MG PO HS, MILK OF MAGNESIA 30ML PO BID, ZOFRAN 4MG IV Q6H PRN, MYLICON 80MG PO TID, ROBITUSSIN DM 10ML PO Q4H PRN, AND HIS HOME MEDICATIONS OF NORVASC, GLIPIZIDE, NORCO, AND TERAZOXIN WERE RESUMED. WE HAVE REPEATED A FOLLOW UP ABDOMEN/PELVIS CT WITHOUT CONTRAST. RESULTS ARE PENDING. TODAY, WE WILL DECREASE IV FLUIDS TO 75 ML/HR. WE WILL DISCONTINUE THE GENTAMICIN AND ADD ZOSYN DUE TO PERSISTENT FEVER AND ELEVATED WBC. OTHERWISE, WE PLAN TO FOLLOW UP WITH AM LABS AND CONTINUE TO MONITOR. TIME SPENT ON CLINICAL ASSESSMENT, REVIEWING LABS AND IMAGING, DECISION MAKING, AND DOCUMENTATION GREATER THAN 45 MINUTES. - Past Medical Family Social History Past Med/Fam/Surg Hx: No changes since H&P Allergies: Allergies codeine Allergy (Verified 08/09/21 12:43) erythromycin base Allergy (Verified 08/09/21 12:43) shellfish derived Allergy (Verified 08/09/21 12:43) - Review of Systems ROS: No change since H&P - Vital Signs and I&O's Vital Signs: Temperature 100.2 F Pulse Rate [Radial] 95 Pulse Rate 91 Respiratory Rate 22 Blood Pressure [Left Arm] 136/71 Blood Pressure 118/59 O2 Sat by Pulse Oximetry 90 Intake and Output: Intake & Output 08/12/21 08/13/21 08/14/21 08/15/21 11:59 11:59 11:59 11:59 Intake Total 4490 / 4490 4315 / 4315 3608 / 3608 3288 / 3288 Output Total 1810 / 1810 3200 / 3200 3100 / 3100 Balance 4490 / 4490 2505 / 2505 408 / 408 188 / 188 - Physical Exam Oriented: Normal Eyes: Normal Ear: Normal Nose: Normal Throat: Normal Respiratory: Normal Cardiovascular: Normal : Dysuria Auscultation: Bowel Sounds: Normal Palpation: Normal Tenderness: Suprapubic, Mild, Other (DISTENDED ) Skin: Normal Musculoskeletal: Normal Psychiatric: Normal Mood Description: Calm Affect: Normal Speech Pattern: Clear, Appropriate - Laboratory and Diagnostics Result Diagrams: 08/15/21 05:13 08/15/21 05:13 Labs: 08/12/21 12:05 Blood Blood Culture - Preliminary 08/12/21 11:55 Blood Blood Culture - Preliminary 08/13/21 10:00 Urine,[place] Urine Culture - Preliminary 08/09/21 13:16 Urine,Clean Catch Urine Culture - Final Escherichia Coli 08/10/21 06:00 Blood Blood Culture - Final Escherichia Coli 08/10/21 05:38 Blood Blood Culture - Final Escherichia Coli Laboratory WBC 20.8 X10^3/uL (3.6-10.0) H 08/15/21 05:13 RBC 3.76 X10^6/uL (4.7-6.0) L 08/15/21 05:13 Hgb 10.8 g/dL (13.5-18.0) L 08/15/21 05:13 Hct 32.9 % (42.0-54.0) L 08/15/21 05:13 MCV 87.4 fL (80.0-100.0) 08/15/21 05:13 MCH 28.7 pg (27.0-34.0) 08/15/21 05:13 MCHC 32.9 g/dL (33.0-35.0) L 08/15/21 05:13 RDW 14.8 % (11.6-16.5) 08/15/21 05:13 Plt Count 215 X10^3/uL (150.0-450.0) 08/15/21 05:13 Plt Count Comment Adequate (ADEQUATE) 08/12/21 05:26 MPV 9.9 fL (7.4-11.0) 08/15/21 05:13 Neut % (Auto) 86.5 % (42.0-75.0) H 08/15/21 05:13 Lymph % (Auto) 3.7 % (21.0-51.0) L 08/15/21 05:13 [place] % (Auto) 7.8 % (0.0-13.0) 08/15/21 05:13 Eos % (Auto) 1.7 % (0.9-2.9) 08/15/21 05:13 Baso % (Auto) 0.3 % (0.2-1.0) 08/15/21 05:13 Neut # (Auto) 18.0 x10^3/uL (2.2-4.8) H 08/15/21 05:13 Lymph # (Auto) 0.8 X10^3/uL (1.3-2.9) L 08/15/21 05:13 [place] # (Auto) 1.6 x10^3/uL (0.3-0.8) H 08/15/21 05:13 Eos # (Auto) 0.4 x10^3/uL (0.0-0.2) H 08/15/21 05:13 Baso # (Auto) 0.1 X10^3/uL (0.0-0.1) 08/15/21 05:13 Absolute Nucleated RBC 0.1 /100WBC 08/15/21 05:13 Total Counted 100 08/12/21 05:26 Neutrophils % (Manual) 90 % (39-76) H 08/12/21 05:26 Band Neutrophils % 7 % (0-10) 08/11/21 05:30 Lymphocytes % (Manual) 4 % (13-43) L 08/12/21 05:26 Monocytes % (Manual) 6 % (4-9) 08/12/21 05:26 Metamyelocytes % 3 08/09/21 13:00 Plt Morphology Comment Normal (NORMAL) 08/12/21 05:26 RBC Morphology Normal (NORMAL) 08/12/21 05:26 Sodium 146 mmol/L (136-145) H 08/15/21 05:13 Corrected Sodium 147 mmol/L (136-145) H 08/15/21 05:13 Potassium 4.4 mmol/L (3.5-5.1) 08/15/21 05:13 Chloride 116 mmol/L (98-107) H* 08/15/21 05:13 Carbon Dioxide 15.6 mmol/L (21-32) L 08/15/21 05:13 BUN 73 mg/dL (7-18) H 08/15/21 05:13 Creatinine 3.76 mg/dL (0.70-1.30) H 08/15/21 05:13 Est GFR (MDRD) Af Amer 21 (>60) L 08/15/21 05:13 Est GFR (MDRD) Non-Af 17 (>60) L 08/15/21 05:13 Glucose 121 mg/dL (65-99) H 08/15/21 05:13 POC Glucose (mg/dL) 107 mg/dL (65-99) H 08/14/21 21:01 Calcium 7.8 mg/dL (8.5-10.1) L 08/15/21 05:13 Corrected Calcium 9.7 mg/dL (8.5-10.1) 08/15/21 05:13 Total Bilirubin 0.40 mg/dL (0.2-1.0) 08/15/21 05:13 AST 21 Units/L (15-37) 08/15/21 05:13 ALT 14 Units/L (12-78) 08/15/21 05:13 Alkaline Phosphatase 173 Units/L (46-116) H 08/15/21 05:13 Creatine Kinase 62 Units/L (39-308) 08/09/21 13:00 CK-MB (CK-2) < 1.0 ng/mL (0-4.0) 08/09/21 13:00 CK/CKMB % Calc 1.6 % (<4) 08/09/21 13:00 Troponin I < 0.02 ng/mL (0-1.5) 08/09/21 13:00 B-Natriuretic Peptide 732 pg/mL (0-79) H* 08/15/21 05:13 Total Protein 5.8 g/dL (6.4-8.2) L 08/15/21 05:13 Albumin 1.6 g/dL (3.4-5.0) L 08/15/21 05:13 Globulin 4.2 g/dL (2.5-4.5) 08/15/21 05:13 Albumin/Globulin Ratio 0.4 Ratio (1.1-2.1) L 08/15/21 05:13 Specimen Type Catherized urine 08/13/21 10:00 Urine Color Yellow (YELLOW) 08/13/21 10:00 Urine Appearance Clear (CLEAR) 08/13/21 10:00 Urine pH 5.0 (5.0 - 8.0) 08/13/21 10:00 Ur Specific [place] 1.010 (1.000-1.030) 08/13/21 10:00 Urine Protein 2+ (NEGATIVE) 08/13/21 10:00 Urine Glucose (UA) 3+ (NEGATIVE) 08/13/21 10:00 Urine Ketones Negative (NEGATIVE) 08/13/21 10:00 Urine Occult Blood 5+ (NEGATIVE) 08/13/21 10:00 Urine Nitrite Negative (NEGATIVE) 08/13/21 10:00 Urine Bilirubin Negative (NEGATIVE) 08/13/21 10:00 Urine Urobilinogen Normal (NORMAL) 08/13/21 10:00 Ur Leukocyte Esterase 3+ (NEGATIVE) 08/13/21 10:00 Urine RBC 3-5 /HPF (0-3) A 08/13/21 10:00 Urine WBC 20-30 /HPF (0-5) A 08/13/21 10:00 Ur Squamous Epith Cells Rare /HPF (NEGATIVE) 08/13/21 10:00 Amorphous Sediment Trace /HPF (NEGATIVE) 08/13/21 10:00 Urine Bacteria Trace /HPF (NEGATIVE) 08/13/21 10:00 Granular Casts Few /LPF (NEGATIVE) 08/09/21 13:16 Urine Mucus Numerous /HPF (NEGATIVE) 08/09/21 13:16 Ur Culture Indicated? Yes/culture set up 08/13/21 10:00 SARS-CoV-2 (PCR) Negative (NEGATIVE) 08/09/21 13:12 Influenza Type A (PCR) Negative (NEGATIVE) 08/09/21 13:12 Influenza Type B (PCR) Negative (NEGATIVE) 08/09/21 13:12 RSV (PCR) Negative (NEGATIVE) 08/09/21 13:12 - Plan (1) E coli bacteremia Status: Acute Plan: NORMAL SALINE AT 75 ML/HR, IV ZOSYN, INVANZ 0.5MG IV DAILY, ALBUMIN 25% IV DAILY, CONTINUE OTHER PLAN OF CARE (2) Acute UTI Status: Acute (3) Pneumonia Status: Acute Qualifiers: Pneumonia type: due to unspecified organism Laterality: right Lung location: lower lobe of lung Qualified Code(s): J18.9 - Pneumonia, unspecified organism Plan: SUPPLEMENTAL OXYGEN, IV ANTIBIOTICS, DUONEBS, MONITOR LABS AND CHEST XRAY (4) Acute renal injury Status: Acute (5) Hyperglycemia due to type 2 diabetes mellitus Status: Acute Qualifiers: Diabetes mellitus half-way insulin use: unspecified manager terminal insulin use status Qualified Code(s): E11.65 - Type 2 diabetes mellitus with hyperglycemia Plan: OTBS ACHS, HUMULIN R SLIDING SCALE
--- NOTE | 2021-08-15 10:37 | CT ---
HISTORYABD PAIN, URINARY OUTLET OBSSTUDYABDOMEN/PELVIS W/O CONCOMPARISONCT abdomen and pelvis 08/11/2021TECHNIQUEMultiple CT axial images of the abdomen and pelvis were obtained without IV contrast. Coronal and sagittal images were reconstructed. Dose reduction techniques included Automated Exposure Control (AEC) and adjustment of mA and kV.FINDINGSThe patient has generalized edema which has progressed. This is manifested as increased density in the subcutaneous tissue and in the intra-abdominal fat. Bilateral pleural effusions are larger.A more focal edema is noted around the urinary bladder and along the course of the ureters, particularly on the left side extending to the level of UPJ junction on both sides. This may indicate urinary tract infection.The urinary bladder is contracted around a Fry balloon catheter. Even accounting for contraction, it appears to have wall thickening measuring about 15 mm. This may be the etiology of the patient's edema indicating urinary tract infection/cystitis.Bilateral hydroureteronephrosis is not significantly changed. No kidney stone or ureteral stone.Heart size normal. Probable passive atelectasis in the dependent lung bases.Hepatomegaly with steatosis is unchanged. Gallbladder isodense to the liver. Spleen, adrenal glands, and pancreas are unremarkable.IMPRESSION1. Decompression of the urinary bladder with Fry balloon catheter2. New perivesical edema and wall thickening suggesting cystitis3. Unchanged hydroureteronephrosis4. More generalized edema and larger pleural effusionsElectronically signed by: Miko Gilbert (Aug 15, 2021 10:34:27)
[2021-08-15] MEDS: ZOSYN VIAL 3.375 GRAMS 3.375 G in NS 100 ML IV + SPIKE MINIBAG* 100 ML IV SCH ×2 (11:00→21:07)
[2021-08-15] MEDS: LASIX IVP SCH ×2 (17:18→20:37)
[2021-08-15] MEDS: SNACK - Diabetic Appropriate PO SCH (20:36)
[2021-08-15] MEDS: COLACE CAP 100 MG PO SCH (20:37)
[2021-08-15] MEDS: NORCO 5/325 MG TAB PO PRN (20:38)
[2021-08-16] MEDS: NS 1,000 ML IV 1,000 ML IV SCH ×3 (04:35→19:58)
[2021-08-16] MEDS: NORCO 5/325 MG TAB PO PRN ×3 (05:17→20:07)
[2021-08-16] MEDS: MYLICON TAB 80 MG CHEW PO SCH ×3 (05:23→21:15)
--- NOTE | 2021-08-16 06:32 | RAD ---
HISTORYShortness of breathSTUDYChest AP [id number] t is within normal limits in size. No definite congestive heart failure is present on today's examination. No alveolar infiltrates, areas of consolidation or pleural effusions are identified. Bony thorax is unremarkable.IMPRESSIONCardiomegaly without congestive heart failure on today's examinationNo definite acute infiltratesElectronically signed by: LANETTE GARZON (Aug 16, 2021 06:30:14)
[2021-08-16 07:20] LABS: BASOPHILS % (AUTO) 0.2 % (0.2-1.0); EOSINOPHILS # (AUTO) 0.3 x10^3/uL (0.0-0.2); EOSINOPHILS % (AUTO) 1.6 % (0.9-2.9); HEMATOCRIT 28.9 % (42.0-54.0); HEMOGLOBIN 9.7 g/dL (13.5-18.0); LYMPHOCYTES # (AUTO) 0.7 X10^3/uL (1.3-2.9); LYMPHOCYTES % (AUTO) 3.5 % (21.0-51.0); MEAN CORPUSCULAR HEMOGLOBIN 29.3 pg (27.0-34.0); MEAN CORPUSCULAR HGB CONC 33.6 g/dL (33.0-35.0); MEAN CORPUSCULAR VOLUME 87.2 fL (80.0-100.0); MEAN PLATELET VOLUME 7.8 fL (7.4-11.0); MONOCYTES # (AUTO) 1.5 x10^3/uL (0.3-0.8); MONOCYTES % (AUTO) 7.6 % (0.0-13.0); NEUTROPHILS # (AUTO) 16.8 x10^3/uL (2.2-4.8); NEUTROPHILS % (AUTO) 87.1 % (42.0-75.0); PLATELET COUNT 360 X10^3/uL (150.0-450.0); RED BLOOD COUNT 3.32 X10^6/uL (4.7-6.0); RED CELL DISTRIBUTION WIDTH 14.5 % (11.6-16.5); WHITE BLOOD COUNT 19.3 X10^3/uL (3.6-10.0)
[2021-08-16 07:34] LABS: ALBUMIN 1.7 g/dL (3.4-5.0); CARBON DIOXIDE 16.8 mmol/L (21-32); COR CA(FOR HYPOALB) 9.8 mg/dL (8.5-10.1); CREATININE 3.76 mg/dL (0.70-1.30); TOTAL PROTEIN 5.8 g/dL (6.4-8.2)
[2021-08-16] MEDS: DUONEB 0.5 MG/3 MG (3 mL) NEB SCH ×4 (08:05→20:25)
[2021-08-16] MEDS: HYTRIN PO SCH (08:48)
[2021-08-16] MEDS: NORVASC TAB 5 MG PO SCH (08:49)
[2021-08-16] MEDS: INVANZ INJ 1 GM VIAL 0.5 GM in NS 50 ML IV 50 ML IV SCH (08:49)
[2021-08-16] MEDS: PROTONIX TAB 40 MG PO SCH ×2 (08:49→20:00)
[2021-08-16] MEDS: GLUCOTROL XL 24-HR PO SCH (08:49)
[2021-08-16] MEDS: LOVENOX INJ 30 MG SYR SC SCH (08:52)
[2021-08-16] MEDS: NYSTATIN POWDER TOP SCH ×2 (08:53→20:00)
[2021-08-16] MEDS: ALBUMIN HUMAN 25%- 100 ML 100 ML IV SCH ×2 (08:53→20:01)
[2021-08-16] MEDS: MILK OF MAGNESIA PO SCH ×2 (09:48→20:00)
[2021-08-16 10:43] VITALS: BMI 28.7
[2021-08-16] MEDS: ZOSYN VIAL 3.375 GRAMS 3.375 G in NS 100 ML IV + SPIKE MINIBAG* 100 ML IV SCH ×2 (10:51→20:03)
[2021-08-16] MEDS: LASIX IVP SCH ×2 (10:52→21:15)
[2021-08-16] MEDS: MAGIC MOUTHWASH (Orig. Formula) MT SCH ×4 (10:53→20:01)
[2021-08-16] MEDS: NYSTATIN SUSP MT SCH ×4 (10:53→20:00)
--- NOTE | 2021-08-16 11:58 | PCM.PROG ---
Progress Note - Progress Note for Day of Date of Exam: 08/16/21 - Subjective Subjective: IS BEING TREATED FOR E.COLI BACTEREMIA, E.COLI UTI, PNEUMONIA, ACUTE RENAL INJURY, HYPERGLYCEMIA, AND GENERALIZED WEAKNESS. TODAY, HE IS ALERT AND ORIENTED, LYING IN BED ON MORNING ROUNDS. HE CONTINUES WITH COMPLAINTS OF WEAKNESS, LOWER ABDOMINAL PAIN, AND ABDOMINAL SWELLING. HE HAS HAD A MODERATE AMOUNT OF PENILE SWELLING WELL. ON EXAMINATION TODAY, HEART IS REGULAR IN RATE AND RHYTHM. BILATERAL LUNGS NOTED WITH DIMINISHED LUNDS. ABDOMEN CONTINUES TO BE DISTENDED AND NOTED WITH SUPRAPUBIC TENDERNESS TO PALPATION. GENERALIZED EDEMA NOTED. HIS VITALS THIS MORNING ARE: 98.0-81-24-97%-137/65. LABS WERE OBTAINED. WBC 19.3, HGB 9.7, BUN/CREATININE 65/3.76, ALBUMIN 1.7, BNP 657. URINE AND BLOOD CULTURES REVEALED GROWTH OF E.COLI. REPEAT BLOOD AND URINE CULTURES PENDING. WE OBTAINED A CHEST XRAY THIS MORNING. IT REVEALED: Cardiomegaly without congestive heart failure on today's examination. No definite acute infiltrates. ABDOMEN/PELVIS CT WITHOUT CONTRAST WAS REPEATED YESTERDAY AND REVEALED: 1. Decompression of the urinary bladder with Fry balloon catheter 2. New perivesical edema and wall thickening suggesting cystitis3. Unchanged hydroureteronephrosis 4. More generalized edema and larger pleural effusions. HE IS CURRENTLY RECEIVING NORMAL SALINE AT 75ML/HR, ALBUMIN 25% IV DAILY, INVANZ 0.5G IV DAILY, ZOSYN IV, OTBS ACHS, HUMULIN R SLIDING SCALE, TYLENOL 650MG PO Q4H PRN, COLACE 200MG PO HS, MILK OF MAGNESIA 30ML PO BID, ZOFRAN 4MG IV Q6H PRN, MYLICON 80MG PO TID, ROBITUSSIN DM 10ML PO Q4H PRN, AND HIS HOME MEDICATIONS OF NORVASC, GLIPIZIDE, NORCO, AND TERAZOXIN WERE RESUMED. HE RECEIVED LASIX 20MG IV X 2 DOSES YESTERDAY. TODAY, WE WILL DECREASE IV FLUIDS TO 20 ML/HR. WE WILL INCREASE ALBUMIN TO BID AND ADMINISTER LASIX 20MG IV X 2 DOSES. OTHERWISE, WE PLAN TO FOLLOW UP WITH AM LABS AND CONTINUE TO MONITOR. TIME SPENT ON CLINICAL ASSESSMENT, REVIEWING LABS AND IMAGING, DECISION MAKING, AND DOCUMENTATION GREATER THAN 45 MINUTES. - Past Medical Family Social History Past Med/Fam/Surg Hx: No changes since H&P Allergies: Allergies codeine Allergy (Verified 08/09/21 12:43) erythromycin base Allergy (Verified 08/09/21 12:43) shellfish derived Allergy (Verified 08/09/21 12:43) - Review of Systems ROS: No change since H&P - Vital Signs and I&O's Vital Signs: Temperature 98.0 F Pulse Rate [Radial] 81 Pulse Rate 85 Respiratory Rate 18 Blood Pressure [Left Arm] 137/65 Blood Pressure 118/59 O2 Sat by Pulse Oximetry 96 Intake and Output: Intake & Output 08/13/21 08/14/21 08/15/21 08/16/21 11:59 11:59 11:59 11:59 Intake Total 4315 / 4315 3608 / 3608 3288 / 3288 2561 / 2561 Output Total 1810 / 1810 3200 / 3200 3100 / 3100 5750 / 5750 Balance 2505 / 2505 408 / 408 188 / 188 -3189 / -3189 - Physical Exam Oriented: Normal Eyes: Normal Ear: Normal Nose: Normal Throat: Other (CANDIDIASIS) Respiratory: Normal Cardiovascular: Normal : Dysuria Auscultation: Bowel Sounds: Normal Palpation: Normal Tenderness: Suprapubic, Mild, Other (DISTENDED ) Skin: Normal Musculoskeletal: Normal Psychiatric: Normal Mood Description: Calm Affect: Normal Speech Pattern: Clear, Appropriate - Laboratory and Diagnostics Result Diagrams: 08/16/21 07:11 08/16/21 07:11 Labs: 08/13/21 10:00 Urine,Fry [place] Urine Culture - Final 08/12/21 12:05 Blood Blood Culture - Preliminary 08/12/21 11:55 Blood Blood Culture - Preliminary 08/09/21 13:16 Urine,Clean Catch Urine Culture - Final Escherichia Coli 08/10/21 06:00 Blood Blood Culture - Final Escherichia Coli 08/10/21 05:38 Blood Blood Culture - Final Escherichia Coli Laboratory WBC 19.3 X10^3/uL (3.6-10.0) H 08/16/21 07:11 RBC 3.32 X10^6/uL (4.7-6.0) L 08/16/21 07:11 Hgb 9.7 g/dL (13.5-18.0) L 08/16/21 07:11 Hct 28.9 % (42.0-54.0) L 08/16/21 07:11 MCV 87.2 fL (80.0-100.0) 08/16/21 07:11 MCH 29.3 pg (27.0-34.0) 08/16/21 07:11 MCHC 33.6 g/dL (33.0-35.0) 08/16/21 07:11 RDW 14.5 % (11.6-16.5) 08/16/21 07:11 Plt Count 360 X10^3/uL (150.0-450.0) 08/16/21 07:11 Plt Count Comment Adequate (ADEQUATE) 08/12/21 05:26 MPV 7.8 fL (7.4-11.0) 08/16/21 07:11 Neut % (Auto) 87.1 % (42.0-75.0) H 08/16/21 07:11 Lymph % (Auto) 3.5 % (21.0-51.0) L 08/16/21 07:11 [place] % (Auto) 7.6 % (0.0-13.0) 08/16/21 07:11 Eos % (Auto) 1.6 % (0.9-2.9) 08/16/21 07:11 Baso % (Auto) 0.2 % (0.2-1.0) 08/16/21 07:11 Neut # (Auto) 16.8 x10^3/uL (2.2-4.8) H 08/16/21 07:11 Lymph # (Auto) 0.7 X10^3/uL (1.3-2.9) L 08/16/21 07:11 [place] # (Auto) 1.5 x10^3/uL (0.3-0.8) H 08/16/21 07:11 Eos # (Auto) 0.3 x10^3/uL (0.0-0.2) H 08/16/21 07:11 Baso # (Auto) 0.0 X10^3/uL (0.0-0.1) 08/16/21 07:11 Absolute Nucleated RBC 0.0 /100WBC 08/16/21 07:11 Total Counted 100 08/12/21 05:26 Neutrophils % (Manual) 90 % (39-76) H 08/12/21 05:26 Band Neutrophils % 7 % (0-10) 08/11/21 05:30 Lymphocytes % (Manual) 4 % (13-43) L 08/12/21 05:26 Monocytes % (Manual) 6 % (4-9) 08/12/21 05:26 Metamyelocytes % 3 08/09/21 13:00 Plt Morphology Comment Normal (NORMAL) 08/12/21 05:26 RBC Morphology Normal (NORMAL) 08/12/21 05:26 Sodium 149 mmol/L (136-145) H 08/16/21 07:11 Corrected Sodium 150 mmol/L (136-145) H 08/16/21 07:11 Potassium 4.6 mmol/L (3.5-5.1) 08/16/21 07:11 Chloride 117 mmol/L (98-107) H* 08/16/21 07:11 Carbon Dioxide 16.8 mmol/L (21-32) L 08/16/21 07:11 BUN 65 mg/dL (7-18) H 08/16/21 07:11 Creatinine 3.76 mg/dL (0.70-1.30) H 08/16/21 07:11 Est GFR (MDRD) Af Amer 21 (>60) L 08/16/21 07:11 Est GFR (MDRD) Non-Af 17 (>60) L 08/16/21 07:11 Glucose 160 mg/dL (65-99) H 08/16/21 07:11 POC Glucose (mg/dL) 191 mg/dL (65-99) H 08/16/21 11:15 Calcium 8.0 mg/dL (8.5-10.1) L 08/16/21 07:11 Corrected Calcium 9.8 mg/dL (8.5-10.1) 08/16/21 07:11 Total Bilirubin 0.40 mg/dL (0.2-1.0) 08/16/21 07:11 AST 17 Units/L (15-37) 08/16/21 07:11 ALT 11 Units/L (12-78) L 08/16/21 07:11 Alkaline Phosphatase 144 Units/L (46-116) H 08/16/21 07:11 Creatine Kinase 62 Units/L (39-308) 08/09/21 13:00 CK-MB (CK-2) < 1.0 ng/mL (0-4.0) 08/09/21 13:00 CK/CKMB % Calc 1.6 % (<4) 08/09/21 13:00 Troponin I < 0.02 ng/mL (0-1.5) 08/09/21 13:00 B-Natriuretic Peptide 657 pg/mL (0-79) H* 08/16/21 07:11 Total Protein 5.8 g/dL (6.4-8.2) L 08/16/21 07:11 Albumin 1.7 g/dL (3.4-5.0) L 08/16/21 07:11 Globulin 4.1 g/dL (2.5-4.5) 08/16/21 07:11 Albumin/Globulin Ratio 0.4 Ratio (1.1-2.1) L 08/16/21 07:11 Specimen Type Catherized urine 08/13/21 10:00 Urine Color Yellow (YELLOW) 08/13/21 10:00 Urine Appearance Clear (CLEAR) 08/13/21 10:00 Urine pH 5.0 (5.0 - 8.0) 08/13/21 10:00 Ur Specific [place] 1.010 (1.000-1.030) 08/13/21 10:00 Urine Protein 2+ (NEGATIVE) 08/13/21 10:00 Urine Glucose (UA) 3+ (NEGATIVE) 08/13/21 10:00 Urine Ketones Negative (NEGATIVE) 08/13/21 10:00 Urine Occult Blood 5+ (NEGATIVE) 08/13/21 10:00 Urine Nitrite Negative (NEGATIVE) 08/13/21 10:00 Urine Bilirubin Negative (NEGATIVE) 08/13/21 10:00 Urine Urobilinogen Normal (NORMAL) 08/13/21 10:00 Ur Leukocyte Esterase 3+ (NEGATIVE) 08/13/21 10:00 Urine RBC 3-5 /HPF (0-3) A 08/13/21 10:00 Urine WBC 20-30 /HPF (0-5) A 08/13/21 10:00 Ur Squamous Epith Cells Rare /HPF (NEGATIVE) 08/13/21 10:00 Amorphous Sediment Trace /HPF (NEGATIVE) 08/13/21 10:00 Urine Bacteria Trace /HPF (NEGATIVE) 08/13/21 10:00 Granular Casts Few /LPF (NEGATIVE) 08/09/21 13:16 Urine Mucus Numerous /HPF (NEGATIVE) 08/09/21 13:16 Ur Culture Indicated? Yes/culture set up 08/13/21 10:00 SARS-CoV-2 (PCR) Negative (NEGATIVE) 08/09/21 13:12 Influenza Type A (PCR) Negative (NEGATIVE) 08/09/21 13:12 Influenza Type B (PCR) Negative (NEGATIVE) 08/09/21 13:12 RSV (PCR) Negative (NEGATIVE) 08/09/21 13:12 - Plan (1) E coli bacteremia Status: Acute Plan: NORMAL SALINE AT 20 ML/HR, INVANZ 0.5MG IV DAILY, IV ZOSYN, ALBUMIN 25% IV BID, LASIX 20MG IV BID X 2 DOSES, CONTINUE OTHER PLAN OF CARE (2) Acute UTI Status: Acute (3) Pneumonia Status: Acute Qualifiers: Pneumonia type: due to unspecified organism Laterality: right Lung location: lower lobe of lung Qualified Code(s): J18.9 - Pneumonia, unspecified organism Plan: SUPPLEMENTAL OXYGEN, IV ANTIBIOTICS, DUONEBS, MONITOR LABS AND CHEST XRAY (4) Acute renal injury Status: Acute (5) Hyperglycemia due to type 2 diabetes mellitus Status: Acute Qualifiers: Diabetes mellitus residential insulin use: unspecified rodent exterminator insulin use status Qualified Code(s): E11.65 - Type 2 diabetes mellitus with hyperglycemia Plan: OTBS ACHS, HUMULIN R SLIDING SCALE
[2021-08-16] MEDS ORDERED: ALBUMIN HUMAN 25%- 100 ML 100 ML ONE (19:12)
[2021-08-16] MEDS: SNACK - Diabetic Appropriate PO SCH (19:59)
[2021-08-16] MEDS: COLACE CAP 100 MG PO SCH (19:59)
[2021-08-17] MEDS: ROBITUSSIN DM PO PRN ×2 (00:39→20:16)
[2021-08-17] MEDS: NORCO 5/325 MG TAB PO PRN ×3 (01:47→20:19)
[2021-08-17] MEDS: NS 1,000 ML IV 1,000 ML IV SCH (03:44)
[2021-08-17] MEDS: MYLICON TAB 80 MG CHEW PO SCH ×3 (05:13→21:22)
[2021-08-17 05:19] LABS: BASOPHILS # (AUTO) 0.1 X10^3/uL (0.0-0.1); BASOPHILS % (AUTO) 0.5 % (0.2-1.0); EOSINOPHILS # (AUTO) 0.3 x10^3/uL (0.0-0.2); EOSINOPHILS % (AUTO) 1.9 % (0.9-2.9); HEMATOCRIT 29.3 % (42.0-54.0); HEMOGLOBIN 9.8 g/dL (13.5-18.0); LYMPHOCYTES # (AUTO) 0.8 X10^3/uL (1.3-2.9); LYMPHOCYTES % (AUTO) 4.6 % (21.0-51.0); MEAN CORPUSCULAR HGB CONC 33.4 g/dL (33.0-35.0); MEAN CORPUSCULAR VOLUME 86.9 fL (80.0-100.0); MEAN PLATELET VOLUME 7.9 fL (7.4-11.0); MONOCYTES # (AUTO) 1.2 x10^3/uL (0.3-0.8); MONOCYTES % (AUTO) 6.8 % (0.0-13.0); NEUTROPHILS # (AUTO) 15.5 x10^3/uL (2.2-4.8); NEUTROPHILS % (AUTO) 86.2 % (42.0-75.0); PLATELET COUNT 424 X10^3/uL (150.0-450.0); RED BLOOD COUNT 3.38 X10^6/uL (4.7-6.0); RED CELL DISTRIBUTION WIDTH 14.6 % (11.6-16.5)
[2021-08-17 05:28] LABS: ALBUMIN 2.3 g/dL (3.4-5.0); CALCIUM 8.3 mg/dL (8.5-10.1); CARBON DIOXIDE 20.9 mmol/L (21-32); COR CA(FOR HYPOALB) 9.7 mg/dL (8.5-10.1); CREATININE 3.69 mg/dL (0.70-1.30); TOTAL PROTEIN 6.3 g/dL (6.4-8.2)
--- NOTE | 2021-08-17 06:10 | RAD ---
HISTORYSOBSTUDYCHEST, 1 [id number]/04/2021.TECHNIQUEAP view of the chestFINDINGSCardiac and mediastinal contours are within normal limits. No significant change in scattered hazy bilateral pulmonary opacities. No definite pneumothorax. Suspect small pleural effusions.IMPRESSIONNo significant change in mild bilateral hazy pulmonary opacities that may represent pulmonary edema or pneumonia. Suspect small pleural effusions.Electronically signed by: Cliff Cervantes (Aug 17, 2021 06:08:57)
[2021-08-17] MEDS: MAGIC MOUTHWASH (Orig. Formula) MT SCH ×4 (08:20→20:12)
[2021-08-17] MEDS: GLUCOTROL XL 24-HR PO SCH (08:20)
[2021-08-17] MEDS: HYTRIN PO SCH (08:20)
[2021-08-17] MEDS: ALBUMIN HUMAN 25%- 100 ML 100 ML IV SCH ×2 (08:20→20:09)
[2021-08-17] MEDS: INVANZ INJ 1 GM VIAL 0.5 GM in NS 50 ML IV 50 ML IV SCH (08:20)
[2021-08-17] MEDS: LOVENOX INJ 30 MG SYR SC SCH (08:20)
[2021-08-17] MEDS: NORVASC TAB 5 MG PO SCH (08:21)
[2021-08-17] MEDS: MILK OF MAGNESIA PO SCH ×2 (08:21→20:11)
[2021-08-17] MEDS: NYSTATIN POWDER TOP SCH ×2 (08:21→20:11)
[2021-08-17] MEDS: DUONEB 0.5 MG/3 MG (3 mL) NEB SCH ×4 (08:45→20:05)
[2021-08-17] MEDS: NYSTATIN SUSP MT SCH ×4 (09:16→20:12)
[2021-08-17] MEDS: PROTONIX TAB 40 MG PO SCH ×2 (09:17→20:10)
[2021-08-17] MEDS ORDERED: NS 1/2 1,000 ML IV 1,000 ML IV ONE (09:50)
[2021-08-17] MEDS: ZOSYN VIAL 3.375 GRAMS 3.375 G in NS 100 ML IV + SPIKE MINIBAG* 100 ML IV SCH ×2 (10:00→20:17)
[2021-08-17] MEDS: NS 1/2 1,000 ML IV 1,000 ML IV SCH (10:01)
--- NOTE | 2021-08-17 10:36 | PCM.PROG ---
Progress Note - Progress Note for Day of Date of Exam: 08/17/21 - Subjective Subjective: IS BEING TREATED FOR E.COLI BACTEREMIA, E.COLI UTI, PNEUMONIA, ACUTE RENAL INJURY, HYPERGLYCEMIA, AND GENERALIZED WEAKNESS. TODAY, HE IS ALERT AND ORIENTED, LYING IN BED ON MORNING ROUNDS. HE CONTINUES WITH COMPLAINTS OF WEAKNESS, LOWER ABDOMINAL PAIN, AND GENERALIZED SWELLING. ABDOMI NAL AND PENILE SWELLING HAVE SLIGHTLY DECREASED. ON EXAMINATION TODAY, HEART IS REGULAR IN RATE AND RHYTHM. BILATERAL LUNGS NOTED WITH DIMINISHED LUNDS. ABDOMEN CONTINUES TO BE DISTENDED AND NOTED WITH SUPRAPUBIC TENDERNESS TO PALPATION. GENERALIZED EDEMA NOTED. HIS VITALS THIS MORNING ARE: 98.8-95-24-92%-151/71. LABS WERE OBTAINED. WBC 18.0, RBC 3.38, HGB 9.8, HCT 29.3, SODIUM 152, CHLORIDE 118, CARBON DIOXIDE 20.9, BUN 62, CREATININE 3.69, GLUCOSE 156, CALCIUM 8.3, AST 14, ALT 10, ALK PHOS 123, TOTAL PROTEIN 6.3, ALBUMIN 2.3. URINE AND BLOOD CULTURES REVEALED GROWTH OF E.COLI. REPEAT BLOOD AND URINE CULTURES PENDING. WE OBTAINED A CHEST XRAY THIS MORNING. IT REVEALED: No significant change in mild bilateral hazy pulmonary opacities that may represent pulmonary edema or pneumonia. Suspect small pleural effusions. HE IS CURRENTLY RECEIVING NORMAL SALINE AT KVO, ALBUMIN 25% IV BID, INVANZ 0.5G IV DAILY, ZOSYN IV, OTBS ACHS, LASIX 20MG IV BID X 2 DOSES, HUMULIN R SLIDING SCALE, TYLENOL 650MG PO Q4H PRN, COLACE 200MG PO HS, MILK OF MAGNESIA 30ML PO BID, ZOFRAN 4MG IV Q6H PRN, MYLICON 80MG PO TID, ROBITUSSIN DM 10ML PO Q4H PRN, AND HIS HOME MEDICATIONS OF NORVASC, GLIPIZIDE, NORCO, AND TERAZOXIN WERE RESUMED. HE RECEIVED LASIX 20MG IV X 2 DOSES YESTERDAY. TODAY, WE WILL CHANGE IV FLUIDS TO 1/2NS. WE WILL ADMINISTER TWO ADDITIONAL DOSES OF LASIX. OTHERWISE, WE PLAN TO FOLLOW UP WITH AM LABS AND CONTINUE TO MONITOR. TIME SPENT ON CLINICAL ASSESSMENT, REVIEWING LABS AND IMAGING, DECISION MAKING, AND DOCUMENTATION GREATER THAN 45 MINUTES. - Past Medical Family Social History Past Med/Fam/Surg Hx: No changes since H&P Allergies: Allergies codeine Allergy (Verified 08/09/21 12:43) erythromycin base Allergy (Verified 08/09/21 12:43) shellfish derived Allergy (Verified 08/09/21 12:43) - Review of Systems ROS: No change since H&P - Vital Signs and I&O's Vital Signs: Temperature 98.8 F Pulse Rate [Radial] 95 Pulse Rate 94 Respiratory Rate 20 Blood Pressure [Left Arm] 151/71 Blood Pressure 118/59 O2 Sat by Pulse Oximetry 92 Intake and Output: Intake & Output 08/14/21 08/15/21 08/16/21 08/17/21 11:59 11:59 11:59 11:59 Intake Total 3608 / 3608 3288 / 3288 2561 / 2561 4507 / 4507 Output Total 3200 / 3200 3100 / 3100 5750 / 5750 6050 / 6050 Balance 408 / 408 188 / 188 -3189 / -3189 -1543 / -1543 - Physical Exam Oriented: Normal Eyes: Normal Ear: Normal Nose: Normal Throat: Other (CANDIDIASIS) Respiratory: Normal Cardiovascular: Normal : Dysuria Auscultation: Bowel Sounds: Normal Tenderness: Suprapubic, Mild, Other (DISTENDED ) Skin: Normal Musculoskeletal: Normal Psychiatric: Normal Mood Description: Calm Affect: Normal Speech Pattern: Clear - Laboratory and Diagnostics Result Diagrams: 08/17/21 05:06 08/17/21 05:06 Labs: 08/13/21 10:00 Urine,[place] Urine Culture - Final 08/12/21 12:05 Blood Blood Culture - Preliminary 08/12/21 11:55 Blood Blood Culture - Preliminary 08/09/21 13:16 Urine,Clean Catch Urine Culture - Final Escherichia Coli 08/10/21 06:00 Blood Blood Culture - Final Escherichia Coli 08/10/21 05:38 Blood Blood Culture - Final Escherichia Coli Laboratory WBC 18.0 X10^3/uL (3.6-10.0) H 08/17/21 05:06 RBC 3.38 X10^6/uL (4.7-6.0) L 08/17/21 05:06 Hgb 9.8 g/dL (13.5-18.0) L 08/17/21 05:06 Hct 29.3 % (42.0-54.0) L 08/17/21 05:06 MCV 86.9 fL (80.0-100.0) 08/17/21 05:06 MCH 29.0 pg (27.0-34.0) 08/17/21 05:06 MCHC 33.4 g/dL (33.0-35.0) 08/17/21 05:06 RDW 14.6 % (11.6-16.5) 08/17/21 05:06 Plt Count 424 X10^3/uL (150.0-450.0) 08/17/21 05:06 Plt Count Comment Adequate (ADEQUATE) 08/12/21 05:26 MPV 7.9 fL (7.4-11.0) 08/17/21 05:06 Neut % (Auto) 86.2 % (42.0-75.0) H 08/17/21 05:06 Lymph % (Auto) 4.6 % (21.0-51.0) L 08/17/21 05:06 [place] % (Auto) 6.8 % (0.0-13.0) 08/17/21 05:06 Eos % (Auto) 1.9 % (0.9-2.9) 08/17/21 05:06 Baso % (Auto) 0.5 % (0.2-1.0) 08/17/21 05:06 Neut # (Auto) 15.5 x10^3/uL (2.2-4.8) H 08/17/21 05:06 Lymph # (Auto) 0.8 X10^3/uL (1.3-2.9) L 08/17/21 05:06 [place] # (Auto) 1.2 x10^3/uL (0.3-0.8) H 08/17/21 05:06 Eos # (Auto) 0.3 x10^3/uL (0.0-0.2) H 08/17/21 05:06 Baso # (Auto) 0.1 X10^3/uL (0.0-0.1) 08/17/21 05:06 Absolute Nucleated RBC 0.0 /100WBC 08/17/21 05:06 Total Counted 100 08/12/21 05:26 Neutrophils % (Manual) 90 % (39-76) H 08/12/21 05:26 Band Neutrophils % 7 % (0-10) 08/11/21 05:30 Lymphocytes % (Manual) 4 % (13-43) L 08/12/21 05:26 Monocytes % (Manual) 6 % (4-9) 08/12/21 05:26 Metamyelocytes % 3 08/09/21 13:00 Plt Morphology Comment Normal (NORMAL) 08/12/21 05:26 RBC Morphology Normal (NORMAL) 08/12/21 05:26 Sodium 152 mmol/L (136-145) H* 08/17/21 05:06 Corrected Sodium 153 mmol/L (136-145) H 08/17/21 05:06 Potassium 4.3 mmol/L (3.5-5.1) 08/17/21 05:06 Chloride 118 mmol/L (98-107) H* 08/17/21 05:06 Carbon Dioxide 20.9 mmol/L (21-32) L 08/17/21 05:06 BUN 62 mg/dL (7-18) H 08/17/21 05:06 Creatinine 3.69 mg/dL (0.70-1.30) H 08/17/21 05:06 Est GFR (MDRD) Af Amer 21 (>60) L 08/17/21 05:06 Est GFR (MDRD) Non-Af 17 (>60) L 08/17/21 05:06 Glucose 156 mg/dL (65-99) H 08/17/21 05:06 POC Glucose (mg/dL) 142 mg/dL (65-99) H 08/17/21 05:23 Calcium 8.3 mg/dL (8.5-10.1) L 08/17/21 05:06 Corrected Calcium 9.7 mg/dL (8.5-10.1) 08/17/21 05:06 Total Bilirubin 0.60 mg/dL (0.2-1.0) 08/17/21 05:06 AST 14 Units/L (15-37) L 08/17/21 05:06 ALT 10 Units/L (12-78) L 08/17/21 05:06 Alkaline Phosphatase 123 Units/L (46-116) H 08/17/21 05:06 Creatine Kinase 62 Units/L (39-308) 08/09/21 13:00 CK-MB (CK-2) < 1.0 ng/mL (0-4.0) 08/09/21 13:00 CK/CKMB % Calc 1.6 % (<4) 08/09/21 13:00 Troponin I < 0.02 ng/mL (0-1.5) 08/09/21 13:00 B-Natriuretic Peptide 657 pg/mL (0-79) H* 08/16/21 07:11 Total Protein 6.3 g/dL (6.4-8.2) L 08/17/21 05:06 Albumin 2.3 g/dL (3.4-5.0) L 08/17/21 05:06 Globulin 4.0 g/dL (2.5-4.5) 08/17/21 05:06 Albumin/Globulin Ratio 0.6 Ratio (1.1-2.1) L 08/17/21 05:06 Specimen Type Catherized urine 08/13/21 10:00 Urine Color Yellow (YELLOW) 08/13/21 10:00 Urine Appearance Clear (CLEAR) 08/13/21 10:00 Urine pH 5.0 (5.0 - 8.0) 08/13/21 10:00 Ur Specific [place] 1.010 (1.000-1.030) 08/13/21 10:00 Urine Protein 2+ (NEGATIVE) 08/13/21 10:00 Urine Glucose (UA) 3+ (NEGATIVE) 08/13/21 10:00 Urine Ketones Negative (NEGATIVE) 08/13/21 10:00 Urine Occult Blood 5+ (NEGATIVE) 08/13/21 10:00 Urine Nitrite Negative (NEGATIVE) 08/13/21 10:00 Urine Bilirubin Negative (NEGATIVE) 08/13/21 10:00 Urine Urobilinogen Normal (NORMAL) 08/13/21 10:00 Ur Leukocyte Esterase 3+ (NEGATIVE) 08/13/21 10:00 Urine RBC 3-5 /HPF (0-3) A 08/13/21 10:00 Urine WBC 20-30 /HPF (0-5) A 08/13/21 10:00 Ur Squamous Epith Cells Rare /HPF (NEGATIVE) 08/13/21 10:00 Amorphous Sediment Trace /HPF (NEGATIVE) 08/13/21 10:00 Urine Bacteria Trace /HPF (NEGATIVE) 08/13/21 10:00 Granular Casts Few /LPF (NEGATIVE) 08/09/21 13:16 Urine Mucus Numerous /HPF (NEGATIVE) 08/09/21 13:16 Ur Culture Indicated? Yes/culture set up 08/13/21 10:00 SARS-CoV-2 (PCR) Negative (NEGATIVE) 08/09/21 13:12 Influenza Type A (PCR) Negative (NEGATIVE) 08/09/21 13:12 Influenza Type B (PCR) Negative (NEGATIVE) 08/09/21 13:12 RSV (PCR) Negative (NEGATIVE) 08/09/21 13:12 - Plan (1) E coli bacteremia Status: Acute Plan: 1/2 NORMAL SALINE AT 20 ML/HR, INVANZ 0.5MG IV DAILY, IV ZOSYN, ALBUMIN 25% IV BID, LASIX 20MG IV BID X 2 DOSES, CONTINUE OTHER PLAN OF CARE (2) Acute UTI Status: Acute (3) Pneumonia Status: Acute Qualifiers: Pneumonia type: due to unspecified organism Laterality: right Lung location: lower lobe of lung Qualified Code(s): J18.9 - Pneumonia, unspecified organism Plan: SUPPLEMENTAL OXYGEN, IV ANTIBIOTICS, DUONEBS, MONITOR LABS AND CHEST XRAY (4) Acute renal injury Status: Acute (5) Hyperglycemia due to type 2 diabetes mellitus Status: Acute Qualifiers: Diabetes mellitus intermediate insulin use: unspecified intermediate insulin use status Qualified Code(s): E11.65 - Type 2 diabetes mellitus with hyperglycemia Plan: OTBS ACHS, HUMULIN R SLIDING SCALE
[2021-08-17] MEDS: HumuLIN R SC PRN ×2 (12:16→17:33)
[2021-08-17] MEDS ORDERED: PHARMACY COMMENT IV NR (13:00)
[2021-08-17] MEDS: PERIDEX or PERIOGARD MT SCH ×2 (15:09→20:18)
[2021-08-17] MEDS ORDERED: NS 1/2 1,000 ML IV 0 ML IV ONE (18:57)
[2021-08-17] MEDS: COLACE CAP 100 MG PO SCH (20:10)
[2021-08-17] MEDS: SNACK - Diabetic Appropriate PO SCH (20:11)
[2021-08-18] MEDS: NS 1/2 1,000 ML IV 1,000 ML IV SCH ×3 (02:35→18:00)
[2021-08-18] MEDS: MYLICON TAB 80 MG CHEW PO SCH ×3 (05:10→21:41)
[2021-08-18 06:42] LABS: BASOPHILS # (AUTO) 0.1 X10^3/uL (0.0-0.1); BASOPHILS % (AUTO) 0.5 % (0.2-1.0); EOSINOPHILS # (AUTO) 0.4 x10^3/uL (0.0-0.2); EOSINOPHILS % (AUTO) 2.4 % (0.9-2.9); HEMATOCRIT 30.4 % (42.0-54.0); HEMOGLOBIN 9.9 g/dL (13.5-18.0); LYMPHOCYTES # (AUTO) 0.9 X10^3/uL (1.3-2.9); LYMPHOCYTES % (AUTO) 5.3 % (21.0-51.0); MEAN CORPUSCULAR HEMOGLOBIN 28.8 pg (27.0-34.0); MEAN CORPUSCULAR HGB CONC 32.7 g/dL (33.0-35.0); MEAN CORPUSCULAR VOLUME 87.9 fL (80.0-100.0); MEAN PLATELET VOLUME 8.6 fL (7.4-11.0); MONOCYTES % (AUTO) 5.7 % (0.0-13.0); NEUTROPHILS # (AUTO) 15.1 x10^3/uL (2.2-4.8); NEUTROPHILS % (AUTO) 86.1 % (42.0-75.0); PLATELET COUNT 397 X10^3/uL (150.0-450.0); RED BLOOD COUNT 3.46 X10^6/uL (4.7-6.0); RED CELL DISTRIBUTION WIDTH 14.9 % (11.6-16.5); WHITE BLOOD COUNT 17.5 X10^3/uL (3.6-10.0)
[2021-08-18 06:53] LABS: ALBUMIN 2.6 g/dL (3.4-5.0); CALCIUM 8.5 mg/dL (8.5-10.1); CARBON DIOXIDE 19.2 mmol/L (21-32); COR CA(FOR HYPOALB) 9.6 mg/dL (8.5-10.1); CREATININE 3.54 mg/dL (0.70-1.30); TOTAL PROTEIN 6.8 g/dL (6.4-8.2)
[2021-08-18] MEDS ORDERED: NS 100 ML IV + SPIKE MINIBAG* 100 ML IV ONE (09:09)
[2021-08-18] MEDS: INVANZ INJ 1 GM VIAL 0.5 GM in NS 50 ML IV 50 ML IV SCH (09:12)
[2021-08-18] MEDS: DUONEB 0.5 MG/3 MG (3 mL) NEB SCH ×4 (09:13→20:10)
[2021-08-18] MEDS: NYSTATIN SUSP MT SCH ×4 (09:20→20:40)
[2021-08-18] MEDS: NORVASC TAB 5 MG PO SCH (09:20)
[2021-08-18] MEDS: NYSTATIN POWDER TOP SCH ×2 (09:20→20:54)
[2021-08-18] MEDS: GLUCOTROL XL 24-HR PO SCH (09:20)
[2021-08-18] MEDS: PROTONIX TAB 40 MG PO SCH ×2 (09:20→20:36)
[2021-08-18] MEDS: HYTRIN PO SCH (09:21)
[2021-08-18] MEDS: MAGIC MOUTHWASH (Orig. Formula) MT SCH ×4 (09:21→20:41)
[2021-08-18] MEDS: MILK OF MAGNESIA PO SCH ×2 (09:21→20:44)
[2021-08-18] MEDS: PERIDEX or PERIOGARD MT SCH ×2 (09:22→20:52)
[2021-08-18] MEDS: LOVENOX INJ 30 MG SYR SC SCH (09:22)
[2021-08-18] MEDS: ALBUMIN HUMAN 25%- 100 ML 100 ML IV SCH ×2 (10:25→20:30)
[2021-08-18] MEDS: ZOSYN VIAL 3.375 GRAMS 3.375 G in NS 100 ML IV + SPIKE MINIBAG* 100 ML IV SCH ×2 (11:42→21:41)
[2021-08-18] MEDS: DIFLUCAN PO SCH (12:20)
[2021-08-18] MEDS ORDERED: NS 1/2 1,000 ML IV 1,000 ML IV ONE (17:59)
[2021-08-18] MEDS: NORCO 5/325 MG TAB PO PRN (20:34)
[2021-08-18] MEDS: COLACE CAP 100 MG PO SCH (20:35)
[2021-08-18] MEDS: SNACK - Diabetic Appropriate PO SCH (20:42)
[2021-08-19] MEDS: NS 1/2 1,000 ML IV 1,000 ML IV SCH (02:32)
[2021-08-19 05:46] LABS: BASOPHILS # (AUTO) 0.1 X10^3/uL (0.0-0.1); BASOPHILS % (AUTO) 0.7 % (0.2-1.0); EOSINOPHILS # (AUTO) 0.2 x10^3/uL (0.0-0.2); EOSINOPHILS % (AUTO) 1.8 % (0.9-2.9); HEMATOCRIT 28.2 % (42.0-54.0); HEMOGLOBIN 9.3 g/dL (13.5-18.0); LYMPHOCYTES % (AUTO) 7.1 % (21.0-51.0); MEAN CORPUSCULAR HEMOGLOBIN 29.1 pg (27.0-34.0); MEAN CORPUSCULAR VOLUME 88.1 fL (80.0-100.0); MEAN PLATELET VOLUME 8.3 fL (7.4-11.0); MONOCYTES # (AUTO) 0.8 x10^3/uL (0.3-0.8); MONOCYTES % (AUTO) 5.7 % (0.0-13.0); NEUTROPHILS # (AUTO) 11.5 x10^3/uL (2.2-4.8); NEUTROPHILS % (AUTO) 84.7 % (42.0-75.0); PLATELET COUNT 414 X10^3/uL (150.0-450.0); RED CELL DISTRIBUTION WIDTH 14.4 % (11.6-16.5); WHITE BLOOD COUNT 13.6 X10^3/uL (3.6-10.0)
[2021-08-19 05:57] LABS: ALBUMIN 2.7 g/dL (3.4-5.0); CALCIUM 8.4 mg/dL (8.5-10.1); CARBON DIOXIDE 20.1 mmol/L (21-32); COR CA(FOR HYPOALB) 9.4 mg/dL (8.5-10.1); CREATININE 3.55 mg/dL (0.70-1.30); TOTAL PROTEIN 6.7 g/dL (6.4-8.2)
[2021-08-19] MEDS: MYLICON TAB 80 MG CHEW PO SCH ×3 (06:38→21:02)
[2021-08-19] MEDS ORDERED: LASIX IVP ONE (07:28)
--- NOTE | 2021-08-19 07:39 | RAD ---
HISTORYHYPOXIA PT IS SOBSTUDYCHEST, 1 VIEWCOMPARISONChest x-ray dated August 17, 2021.FINDINGSStudy is limited secondary to technique. The trachea is midline. The cardiac silhouette is stably enlarged. No significant change in lung aeration given technique. No obvious pleural effusion or pneumothorax. The bony thorax is unremarkable.IMPRESSIONNo significant change given technique.Electronically signed by: GREG MARIA (Aug 19, 2021 07:37:20)
[2021-08-19] MEDS: DUONEB 0.5 MG/3 MG (3 mL) NEB SCH ×4 (08:28→20:11)
[2021-08-19] MEDS: LOVENOX INJ 30 MG SYR SC SCH (09:30)
[2021-08-19] MEDS: ALBUMIN HUMAN 25%- 100 ML 100 ML IV SCH ×2 (09:31→20:24)
[2021-08-19] MEDS: PROTONIX TAB 40 MG PO SCH ×2 (09:32→20:30)
[2021-08-19] MEDS: ZOSYN VIAL 3.375 GRAMS 3.375 G in NS 100 ML IV + SPIKE MINIBAG* 100 ML IV SCH ×2 (09:32→21:39)
[2021-08-19] MEDS: NYSTATIN SUSP MT SCH ×4 (09:33→20:29)
[2021-08-19] MEDS: PERIDEX or PERIOGARD MT SCH ×2 (09:33→20:34)
[2021-08-19] MEDS: NYSTATIN POWDER TOP SCH ×2 (09:33→20:37)
[2021-08-19] MEDS: MAGIC MOUTHWASH (Orig. Formula) MT SCH ×4 (09:34→20:36)
[2021-08-19] MEDS: MILK OF MAGNESIA PO SCH ×2 (09:34→20:31)
[2021-08-19] MEDS: INVANZ INJ 1 GM VIAL 0.5 GM in NS 50 ML IV 50 ML IV SCH (09:34)
[2021-08-19] MEDS: NORVASC TAB 5 MG PO SCH (09:34)
[2021-08-19] MEDS: GLUCOTROL XL 24-HR PO SCH (09:35)
[2021-08-19] MEDS: HYTRIN PO SCH (09:35)
[2021-08-19] MEDS: DIFLUCAN PO SCH (09:36)
[2021-08-19] MEDS: NORCO 5/325 MG TAB PO PRN (19:55)
[2021-08-19] MEDS: COLACE CAP 100 MG PO SCH (20:30)
[2021-08-19] MEDS: SNACK - Diabetic Appropriate PO SCH (20:33)
[2021-08-19] MEDS: ZOFRAN INJ 4 MG VIAL IVP PRN (23:05)
[2021-08-20] MEDS ORDERED: PHENERGAN INJ 25 MG IM PRN (00:50)
[2021-08-20] MEDS: NS 1/2 1,000 ML IV 1,000 ML IV SCH ×4 (03:27→21:01)
[2021-08-20] MEDS: MYLICON TAB 80 MG CHEW PO SCH ×3 (06:12→21:00)
[2021-08-20 06:13] LABS: BASOPHILS # (AUTO) 0.1 X10^3/uL (0.0-0.1); BASOPHILS % (AUTO) 0.7 % (0.2-1.0); EOSINOPHILS # (AUTO) 0.3 x10^3/uL (0.0-0.2); EOSINOPHILS % (AUTO) 2.7 % (0.9-2.9); HEMATOCRIT 27.3 % (42.0-54.0); HEMOGLOBIN 9.2 g/dL (13.5-18.0); LYMPHOCYTES # (AUTO) 1.1 X10^3/uL (1.3-2.9); LYMPHOCYTES % (AUTO) 8.7 % (21.0-51.0); MEAN CORPUSCULAR HEMOGLOBIN 29.8 pg (27.0-34.0); MEAN CORPUSCULAR HGB CONC 33.7 g/dL (33.0-35.0); MEAN CORPUSCULAR VOLUME 88.3 fL (80.0-100.0); MEAN PLATELET VOLUME 8.1 fL (7.4-11.0); MONOCYTES # (AUTO) 0.8 x10^3/uL (0.3-0.8); MONOCYTES % (AUTO) 6.5 % (0.0-13.0); NEUTROPHILS # (AUTO) 10.6 x10^3/uL (2.2-4.8); NEUTROPHILS % (AUTO) 81.4 % (42.0-75.0); PLATELET COUNT 368 X10^3/uL (150.0-450.0); RED CELL DISTRIBUTION WIDTH 14.7 % (11.6-16.5)
[2021-08-20 06:27] LABS: ALBUMIN 3.1 g/dL (3.4-5.0); CALCIUM 8.5 mg/dL (8.5-10.1); CARBON DIOXIDE 22.2 mmol/L (21-32); COR CA(FOR HYPOALB) 9.2 mg/dL (8.5-10.1); CREATININE 3.63 mg/dL (0.70-1.30); TOTAL PROTEIN 7.2 g/dL (6.4-8.2)
--- NOTE | 2021-08-20 07:14 | RAD ---
HISTORYSOBSTUDYCHEST, 1 [id number]/07/2021.TECHNIQUEAP view of the chestFINDINGSThe cardiac silhouette is stably enlarged. Mediastinal contours appear stable. Mild improvement in scattered bilateral airspace and interstitial opacities compared to prior study. No definite pleural effusion or pneumothorax. Right costophrenic sulcus not completely visualized.IMPRESSIONInterval improvement in bilateral airspace opacities.Electronically signed by: Cliff Cervantes (Aug 20, 2021 07:11:56)
[2021-08-20] MEDS ORDERED: DIFLUCAN PO SCH (09:00)
[2021-08-20] MEDS: DUONEB 0.5 MG/3 MG (3 mL) NEB SCH ×4 (09:02→20:26)
[2021-08-20] MEDS: MILK OF MAGNESIA PO SCH ×2 (09:10→20:42)
[2021-08-20] MEDS: ALBUMIN HUMAN 25%- 100 ML 100 ML IV SCH ×2 (09:19→20:40)
[2021-08-20] MEDS: PROTONIX TAB 40 MG PO SCH ×2 (09:21→20:52)
[2021-08-20] MEDS: HYTRIN PO SCH (09:21)
[2021-08-20] MEDS: NORVASC TAB 5 MG PO SCH (09:22)
[2021-08-20] MEDS: GLUCOTROL XL 24-HR PO SCH (09:22)
[2021-08-20] MEDS: NYSTATIN SUSP MT SCH ×4 (09:23→20:51)
[2021-08-20] MEDS: LOVENOX INJ 30 MG SYR SC SCH (09:23)
[2021-08-20] MEDS: NYSTATIN POWDER TOP SCH ×2 (09:23→20:42)
[2021-08-20] MEDS: PERIDEX or PERIOGARD MT SCH ×2 (09:24→20:43)
[2021-08-20] MEDS: MAGIC MOUTHWASH (Orig. Formula) MT SCH ×4 (09:50→20:42)
[2021-08-20] MEDS: LASIX IVP SCH ×2 (10:18→20:41)
[2021-08-20] MEDS: INVANZ INJ 1 GM VIAL 0.5 GM in NS 50 ML IV 50 ML IV SCH (10:19)
--- NOTE | 2021-08-20 10:53 | PCM.PROG ---
Progress Note - Progress Note for Day of Date of Exam: 08/20/21 - Subjective Subjective: IS BEING TREATED FOR E.COLI BACTEREMIA, E.COLI UTI, PNEUMONIA, ACUTE RENAL INJURY, HYPERGLYCEMIA, AND GENERALIZED WEAKNESS. TODAY, HE IS ALERT AND ORIENTED, LYING IN BED ON MORNING ROUNDS. HE CONTINUES WITH COMPLAINTS OF WEAKNESS, LOWER ABDOMINAL PAIN, AND SHORTNESS OF BREATH. HE ALSO REPORTS MILD, INTERMITTENT LEFT LEG PAIN. ABDOMINAL AND PENILE SWELLING HAVE DECREASED. HE REPORTS THAT ABDOMINAL PAIN COMES AND GOES. STAFF REPORTS THAT HIS OXYGEN SATURATIONS DROP TO THE LOWER 80s WHEN NOT ON OXYGEN. HE IS CURRENTLY ON OXYGEN VIA NASAL CANNULA AT 4 LPM. HE IS WEAK WHEN AMBULATING AND REQUIRES ASSISTANCE. ON EXAMINATION TODAY, HEART IS REGULAR IN RATE AND RHYTHM. BILATERAL LUNGS NOTED WITH DIMINISHED LUNDS. ABDOMEN IS ROUND, SOFT, AND NOTED WITH SUPRAPUBIC TENDERNESS TO PALPATION. TRACE EDEMA NOTED TO LOWER EXTREMITIES. HIS VITALS THIS MORNING ARE: 98.1-81-22-90%NC-137/68. LABS WERE OBTAINED. WBC13.0, RBC 3.10, HGB 9.2, HCT 27.3, SODIUM 153, CHLORIDE 117, BUN 43, CREATININE 3.63, GLUCOSE 148, ALK PHOS 123, CRP 141, ALBUMIN 3.1. INITIAL URINE AND BLOOD CULTURES REVEALED GROWTH OF E.COLI. REPEAT CULTURES HAVE BEEN NEGATIVE SO FAR. WE OBTAINED A CHEST XRAY THIS MORNING. IT REVEALED: Interval improvement in bilateral airspace opacities. HE IS CURRENTLY RECEIVING NORMAL SALINE AT KVO, ALBUMIN 25% IV BID, INVANZ 0.5G IV DAILY, ZOSYN IV, OTBS ACHS, HUMULIN R SLIDING SCALE, TYLENOL 650MG PO Q4H PRN, COLACE 200MG PO HS, MILK OF MAGNESIA 30ML PO BID, ZOFRAN 4MG IV Q6H PRN, DIFLUCAN 100MG PO DAILY, MAGIC MOUTHWASH, NYSTATN SWISH AND SWALLOW, PROTONIX, PHENERGAN PRN, MYLICON 80MG PO TID, ROBITUSSIN DM 10ML PO Q4H PRN, AND HIS HOME MEDICATIONS OF NORVASC, GLIPIZIDE, NORCO, AND TERAZOXIN WERE RESUMED. TODAY, WE WILL ADMINISTER TWO ADDITIONAL DOSES OF LASIX. OTHERWISE, WE PLAN TO FOLLOW UP WITH AM LABS AND CONTINUE TO MONITOR. TIME SPENT ON CLINICAL ASSESSMENT, REVIEWING LABS AND IMAGING, DECISION MAKING, AND DOCUMENTATION GREATER THAN 45 MINUTES. - Past Medical Family Social History Past Med/Fam/Surg Hx: No changes since H&P Allergies: Allergies codeine Allergy (Verified 08/09/21 12:43) erythromycin base Allergy (Verified 08/09/21 12:43) shellfish derived Allergy (Verified 08/09/21 12:43) - Review of Systems ROS: No change since H&P - Vital Signs and I&O's Vital Signs: Temperature 98.1 F Pulse Rate [Radial] 81 Pulse Rate 85 Respiratory Rate 22 Blood Pressure [Left Arm] 137/68 Blood Pressure 118/59 O2 Sat by Pulse Oximetry 90 Intake and Output: Intake & Output 08/17/21 08/18/21 08/19/21 08/20/21 12:59 12:59 11:59 11:59 Intake Total 460 / 460 Output Total 3000 / 3000 Balance -2540 / -2540 - Physical Exam Oriented: Normal Eyes: Normal Ear: Normal Nose: Normal Throat: Other (CANDIDIASIS) Respiratory: Normal, Diminished Cardiovascular: Normal : Dysuria Auscultation: Bowel Sounds: Normal Palpation: Normal Tenderness: Suprapubic, Mild, Other (DISTENDED ) Skin: Normal Musculoskeletal: Normal Psychiatric: Normal Mood Description: Calm Affect: Normal Speech Pattern: Clear, Appropriate - Laboratory and Diagnostics Result Diagrams: 08/20/21 05:50 08/20/21 05:50 Labs: 08/13/21 10:00 Urine,Fry [place] Urine Culture - Final 08/12/21 12:05 Blood Blood Culture - Preliminary 08/12/21 11:55 Blood Blood Culture - Preliminary 08/09/21 13:16 Urine,Clean Catch Urine Culture - Final Escherichia Coli 08/10/21 06:00 Blood Blood Culture - Final Escherichia Coli 08/10/21 05:38 Blood Blood Culture - Final Escherichia Coli Laboratory WBC 13.0 X10^3/uL (3.6-10.0) H 08/20/21 05:50 RBC 3.10 X10^6/uL (4.7-6.0) L 08/20/21 05:50 Hgb 9.2 g/dL (13.5-18.0) L 08/20/21 05:50 Hct 27.3 % (42.0-54.0) L 08/20/21 05:50 MCV 88.3 fL (80.0-100.0) 08/20/21 05:50 MCH 29.8 pg (27.0-34.0) 08/20/21 05:50 MCHC 33.7 g/dL (33.0-35.0) 08/20/21 05:50 RDW 14.7 % (11.6-16.5) 08/20/21 05:50 Plt Count 368 X10^3/uL (150.0-450.0) 08/20/21 05:50 Plt Count Comment Adequate (ADEQUATE) 08/12/21 05:26 MPV 8.1 fL (7.4-11.0) 08/20/21 05:50 Neut % (Auto) 81.4 % (42.0-75.0) H 08/20/21 05:50 Lymph % (Auto) 8.7 % (21.0-51.0) L 08/20/21 05:50 Andrew % (Auto) 6.5 % (0.0-13.0) 08/20/21 05:50 Eos % (Auto) 2.7 % (0.9-2.9) 08/20/21 05:50 Baso % (Auto) 0.7 % (0.2-1.0) 08/20/21 05:50 Neut # (Auto) 10.6 x10^3/uL (2.2-4.8) H 08/20/21 05:50 Lymph # (Auto) 1.1 X10^3/uL (1.3-2.9) L 08/20/21 05:50 Andrew # (Auto) 0.8 x10^3/uL (0.3-0.8) 08/20/21 05:50 Eos # (Auto) 0.3 x10^3/uL (0.0-0.2) H 08/20/21 05:50 Baso # (Auto) 0.1 X10^3/uL (0.0-0.1) 08/20/21 05:50 Absolute Nucleated RBC 0.1 /100WBC 08/20/21 05:50 Total Counted 100 08/12/21 05:26 Neutrophils % (Manual) 90 % (39-76) H 08/12/21 05:26 Band Neutrophils % 7 % (0-10) 08/11/21 05:30 Lymphocytes % (Manual) 4 % (13-43) L 08/12/21 05:26 Monocytes % (Manual) 6 % (4-9) 08/12/21 05:26 Metamyelocytes % 3 08/09/21 13:00 Plt Morphology Comment Normal (NORMAL) 08/12/21 05:26 RBC Morphology Normal (NORMAL) 08/12/21 05:26 Sodium 153 mmol/L (136-145) H* 08/20/21 05:50 Corrected Sodium 154 mmol/L (136-145) H 08/20/21 05:50 Potassium 4.1 mmol/L (3.5-5.1) 08/20/21 05:50 Chloride 117 mmol/L (98-107) H* 08/20/21 05:50 Carbon Dioxide 22.2 mmol/L (21-32) 08/20/21 05:50 BUN 43 mg/dL (7-18) H 08/20/21 05:50 Creatinine 3.63 mg/dL (0.70-1.30) H 08/20/21 05:50 Est GFR (MDRD) Af Amer 22 (>60) L 08/20/21 05:50 Est GFR (MDRD) Non-Af 18 (>60) L 08/20/21 05:50 Glucose 148 mg/dL (65-99) H 08/20/21 05:50 POC Glucose (mg/dL) 142 mg/dL (65-99) H 08/20/21 06:09 Calcium 8.5 mg/dL (8.5-10.1) 08/20/21 05:50 Corrected Calcium 9.2 mg/dL (8.5-10.1) 08/20/21 05:50 Total Bilirubin 0.50 mg/dL (0.2-1.0) 08/20/21 05:50 AST 21 Units/L (15-37) 08/20/21 05:50 ALT 14 Units/L (12-78) 08/20/21 05:50 Alkaline Phosphatase 123 Units/L (46-116) H 08/20/21 05:50 Creatine Kinase 62 Units/L (39-308) 08/09/21 13:00 CK-MB (CK-2) < 1.0 ng/mL (0-4.0) 08/09/21 13:00 CK/CKMB % Calc 1.6 % (<4) 08/09/21 13:00 Troponin I < 0.02 ng/mL (0-1.5) 08/09/21 13:00 C-Reactive Protein 141.00 mg/L (0-3.0) H 08/20/21 05:50 B-Natriuretic Peptide 657 pg/mL (0-79) H* 08/16/21 07:11 Total Protein 7.2 g/dL (6.4-8.2) 08/20/21 05:50 Albumin 3.1 g/dL (3.4-5.0) L 08/20/21 05:50 Globulin 4.1 g/dL (2.5-4.5) 08/20/21 05:50 Albumin/Globulin Ratio 0.8 Ratio (1.1-2.1) L 08/20/21 05:50 Specimen Type Catherized urine 08/13/21 10:00 Urine Color Yellow (YELLOW) 08/13/21 10:00 Urine Appearance Clear (CLEAR) 08/13/21 10:00 Urine pH 5.0 (5.0 - 8.0) 08/13/21 10:00 Ur Specific [place] 1.010 (1.000-1.030) 08/13/21 10:00 Urine Protein 2+ (NEGATIVE) 08/13/21 10:00 Urine Glucose (UA) 3+ (NEGATIVE) 08/13/21 10:00 Urine Ketones Negative (NEGATIVE) 08/13/21 10:00 Urine Occult Blood 5+ (NEGATIVE) 08/13/21 10:00 Urine Nitrite Negative (NEGATIVE) 08/13/21 10:00 Urine Bilirubin Negative (NEGATIVE) 08/13/21 10:00 Urine Urobilinogen Normal (NORMAL) 08/13/21 10:00 Ur Leukocyte Esterase 3+ (NEGATIVE) 08/13/21 10:00 Urine RBC 3-5 /HPF (0-3) A 08/13/21 10:00 Urine WBC 20-30 /HPF (0-5) A 08/13/21 10:00 Ur Squamous Epith Cells Rare /HPF (NEGATIVE) 08/13/21 10:00 Amorphous Sediment Trace /HPF (NEGATIVE) 08/13/21 10:00 Urine Bacteria Trace /HPF (NEGATIVE) 08/13/21 10:00 Granular Casts Few /LPF (NEGATIVE) 08/09/21 13:16 Urine Mucus Numerous /HPF (NEGATIVE) 08/09/21 13:16 Ur Culture Indicated? Yes/culture set up 08/13/21 10:00 SARS-CoV-2 (PCR) Negative (NEGATIVE) 08/09/21 13:12 Influenza Type A (PCR) Negative (NEGATIVE) 08/09/21 13:12 Influenza Type B (PCR) Negative (NEGATIVE) 08/09/21 13:12 RSV (PCR) Negative (NEGATIVE) 08/09/21 13:12 - Plan (1) E coli bacteremia Status: Acute Plan: 1/2 NORMAL SALINE AT 20 ML/HR, INVANZ 0.5MG IV DAILY, IV ZOSYN, ALBUMIN 25% IV BID, LASIX 20MG IV BID X 2 DOSES, CONTINUE OTHER PLAN OF CARE (2) Acute UTI Status: Acute (3) Pneumonia Status: Acute Qualifiers: Pneumonia type: due to unspecified organism Laterality: right Lung location: lower lobe of lung Qualified Code(s): J18.9 - Pneumonia, unspecified organism Plan: SUPPLEMENTAL OXYGEN, IV ANTIBIOTICS, DUONEBS, MONITOR LABS AND CHEST XRAY (4) Acute renal injury Status: Acute (5) Hyperglycemia due to type 2 diabetes mellitus Status: Acute Qualifiers: Diabetes mellitus rat exterminator insulin use: unspecified halfway insulin use status Qualified Code(s): E11.65 - Type 2 diabetes mellitus with hyperglycemia Plan: OTBS ACHS, HUMULIN R SLIDING SCALE
[2021-08-20] MEDS: ZOSYN VIAL 3.375 GRAMS 3.375 G in NS 100 ML IV + SPIKE MINIBAG* 100 ML IV SCH ×2 (10:58→21:39)
[2021-08-20] MEDS: NORCO 5/325 MG TAB PO PRN ×2 (12:47→21:40)
[2021-08-20] MEDS ORDERED: TORADOL 15 MG VIAL IVP PRN (12:58)
[2021-08-20] MEDS: HumuLIN R SC PRN (16:32)
[2021-08-20] MEDS ORDERED: NS 1/2 1,000 ML IV 1,000 ML IV ONE (20:08)
[2021-08-20] MEDS: SNACK - Diabetic Appropriate PO SCH (20:39)
[2021-08-20] MEDS: COLACE CAP 100 MG PO SCH (20:41)
[2021-08-21] MEDS: NORCO 5/325 MG TAB PO PRN (03:20)
[2021-08-21] MEDS: NS 1/2 1,000 ML IV 1,000 ML IV SCH ×3 (04:27→18:05)
[2021-08-21] MEDS: MYLICON TAB 80 MG CHEW PO SCH ×3 (05:33→21:04)
[2021-08-21 05:47] LABS: BASOPHILS # (AUTO) 0.1 X10^3/uL (0.0-0.1); BASOPHILS % (AUTO) 0.7 % (0.2-1.0); EOSINOPHILS # (AUTO) 0.4 x10^3/uL (0.0-0.2); EOSINOPHILS % (AUTO) 3.2 % (0.9-2.9); HEMATOCRIT 25.6 % (42.0-54.0); HEMOGLOBIN 8.5 g/dL (13.5-18.0); LYMPHOCYTES % (AUTO) 8.3 % (21.0-51.0); MEAN CORPUSCULAR HEMOGLOBIN 29.1 pg (27.0-34.0); MEAN CORPUSCULAR HGB CONC 33.2 g/dL (33.0-35.0); MEAN CORPUSCULAR VOLUME 87.7 fL (80.0-100.0); MEAN PLATELET VOLUME 8.5 fL (7.4-11.0); MONOCYTES # (AUTO) 0.7 x10^3/uL (0.3-0.8); NEUTROPHILS # (AUTO) 9.4 x10^3/uL (2.2-4.8); NEUTROPHILS % (AUTO) 81.8 % (42.0-75.0); PLATELET COUNT 370 X10^3/uL (150.0-450.0); RED BLOOD COUNT 2.92 X10^6/uL (4.7-6.0); RED CELL DISTRIBUTION WIDTH 14.5 % (11.6-16.5); WHITE BLOOD COUNT 11.6 X10^3/uL (3.6-10.0)
--- NOTE | 2021-08-21 05:54 | RAD ---
HISTORYSOB DM. HTN, ORTHOSTUDYCHEST, 1 VIEWCOMPARISONA 08/20/2021FINDINGSThe trachea is midline. The cardiac silhouette is mildly enlarged.. Bilateral airspace and interstitial opacities unchanged. No pneumothorax.. The bony thorax is unremarkable.IMPRESSIONStable portable chest.Electronically signed by: Armin Bailey (Aug 21, 2021 05:52:36)
[2021-08-21 06:00] LABS: ALBUMIN 3.2 g/dL (3.4-5.0); CALCIUM 8.5 mg/dL (8.5-10.1); CARBON DIOXIDE 23.5 mmol/L (21-32); COR CA(FOR HYPOALB) 9.1 mg/dL (8.5-10.1); CREATININE 3.81 mg/dL (0.70-1.30); TOTAL PROTEIN 7.2 g/dL (6.4-8.2)
[2021-08-21] MEDS: DUONEB 0.5 MG/3 MG (3 mL) NEB SCH ×4 (09:00→20:15)
[2021-08-21] MEDS: GLUCOTROL XL 24-HR PO SCH (09:12)
[2021-08-21] MEDS: NYSTATIN POWDER TOP SCH ×2 (09:13→20:33)
[2021-08-21] MEDS: PROTONIX TAB 40 MG PO SCH ×2 (09:13→20:34)
[2021-08-21] MEDS: PERIDEX or PERIOGARD MT SCH ×2 (09:13→20:34)
[2021-08-21] MEDS: NORVASC TAB 5 MG PO SCH (09:14)
[2021-08-21] MEDS: NYSTATIN SUSP MT SCH ×4 (09:15→20:33)
[2021-08-21] MEDS: MAGIC MOUTHWASH (Orig. Formula) MT SCH ×4 (09:15→20:32)
[2021-08-21] MEDS: INVANZ INJ 1 GM VIAL 0.5 GM in NS 50 ML IV 50 ML IV SCH (09:16)
[2021-08-21] MEDS: MILK OF MAGNESIA PO SCH ×2 (09:18→20:32)
[2021-08-21] MEDS: HYTRIN PO SCH (09:18)
[2021-08-21] MEDS: LOVENOX INJ 30 MG SYR SC SCH (09:19)
[2021-08-21] MEDS ORDERED: PROCRIT or EPOGEN VIAL 10,000 UNITS SC ONE (09:31)
[2021-08-21] MEDS ORDERED: NS 1/2 1,000 ML IV 1,000 ML IV ONE (10:09)
[2021-08-21] MEDS: SOLU-Medrol 40 MG VIAL IVP SCH ×3 (10:10→21:04)
[2021-08-21] MEDS: LASIX IVP SCH ×2 (10:10→20:32)
[2021-08-21] MEDS: ALBUMIN HUMAN 25%- 100 ML 100 ML IV SCH ×2 (10:12→20:31)
[2021-08-21] MEDS: ZOSYN VIAL 3.375 GRAMS 3.375 G in NS 100 ML IV + SPIKE MINIBAG* 100 ML IV SCH ×2 (11:15→22:00)
--- NOTE | 2021-08-21 11:26 | PCM.PROG ---
Progress Note - Progress Note for Day of Date of Exam: 08/21/21 - Subjective Subjective: IS BEING TREATED FOR E.COLI BACTEREMIA, E.COLI UTI, PNEUMONIA, ACUTE RENAL INJURY, HYPERGLYCEMIA, AND GENERALIZED WEAKNESS. TODAY, HE IS ALERT AND ORIENTED, LYING IN BED ON MORNING ROUNDS. HE CONTINUES WITH COMPLAINTS OF WEAKNESS, LOWER ABDOMINAL PAIN, AND SHORTNESS OF BREATH. BREATHING APPEARS TO BE SLIGHTLY MORE LABORED TODAY.. HE REPORTS THAT ABDOMINAL PAIN COMES AND GOES. STAFF REPORTS THAT HIS OXYGEN SATURATIONS DROP TO THE LOWER 80s WHEN SLEEPING OR AMBULATING. HE IS CURRENTLY ON OXYGEN VIA NASAL CANNULA AT 4 LPM. HE IS WEAK WHEN AMBULATING AND REQUIRES ASSISTANCE. ON EXAMINATION TODAY, HEART IS REGULAR IN RATE AND RHYTHM. BILATERAL LUNGS NOTED WITH DIMINISHED LUNDS. ABDOMEN IS ROUND, SOFT, AND NOTED WITH SUPRAPUBIC TENDERNESS TO PALPATION. TRACE EDEMA NOTED TO LOWER EXTREMITIES. HIS VITALS THIS MORNING ARE: 98.4-86-26-89%-137/68. LABS WERE OBTAINED. WBC 11.6, RBC 2.92, HGB 8.5, HCT 25.6, SODIUM 151, CHLORIDE 115, BUN 41, CREATININE 3.81, GLUCOSE 154, AST 14, CRP 118.70, BNP 766, ALBUMIN 3.2. INITIAL URINE AND BLOOD CULTURES REVEALED GROWTH OF E.COLI. REPEAT CULTURES HAVE BEEN NEGATIVE SO FAR. WE OBTAINED A CHEST XRAY THIS MORNING. IT REVEALED: The trachea is midline. The cardiac silhouette is mildly enlarged. Bilateral airspace and interstitial opacities unchanged. No pneumothorax. The bony thorax is unremarkable. HE IS CURRENTLY RECEIVING NORMAL SALINE AT KVO, ALBUMIN 25% IV BID, INVANZ 0.5G IV DAILY, ZOSYN IV, OTBS ACHS, HUMULIN R SLIDING SCALE, TYLE NOL 650MG PO Q4H PRN, COLACE 200MG PO HS, MILK OF MAGNESIA 30ML PO BID, ZOFRAN 4MG IV Q6H PRN, DIFLUCAN 100MG PO DAILY, MAGIC MOUTHWASH, NYSTATN SWISH AND SWALLOW, PROTONIX, PHENERGAN PRN, MYLICON 80MG PO TID, ROBITUSSIN DM 10ML PO Q4H PRN, AND HIS HOME MEDICATIONS OF NORVASC, GLIPIZIDE, NORCO, AND TERAZOXIN WERE RESUMED. TODAY, WE WILL ADMINISTER TWO ADDITIONAL DOSES OF LASIX, START SOLU- MEDROL 40MG IV Q8H, AND ADMINISTER PROCRIT 5,000 UNITS SC X 1 DOSE. WE WILL ORDER FOR HIM TO WEAR THE BIPAP WHILE SLEEPING. OTHERWISE, WE PLAN TO FOLLOW UP WITH AM LABS AND CONTINUE TO MONITOR. TIME SPENT ON CLINICAL ASSESSMENT, REVIEWING LABS AND IMAGING, DECISION MAKING, AND DOCUMENTATION GREATER THAN 45 MINUTES. - Past Medical Family Social History Past Med/Fam/Surg Hx: No changes since H&P Allergies: Allergies codeine Allergy (Verified 08/09/21 12:43) erythromycin base Allergy (Verified 08/09/21 12:43) shellfish derived Allergy (Verified 08/09/21 12:43) - Review of Systems ROS: No change since H&P - Vital Signs and I&O's Vital Signs: Temperature 98.4 F Pulse Rate [Radial] 86 Pulse Rate 84 Respiratory Rate 26 Blood Pressure [Left Arm] 137/68 Blood Pressure 118/59 O2 Sat by Pulse Oximetry 93 Intake and Output: Intake & Output 08/18/21 08/19/21 08/20/21 08/21/21 12:59 11:59 11:59 11:59 Intake Total 460 / 460 3475 / 3475 Output Total 3000 / 3000 3955 / 3955 Balance -2540 / -2540 -480 / -480 - Physical Exam Oriented: Normal Eyes: Normal Ear: Normal Nose: Normal Throat: Other (CANDIDIASIS) Respiratory: Normal, Diminished Cardiovascular: Normal : Dysuria Auscultation: Bowel Sounds: Normal Palpation: Normal Tenderness: Suprapubic, Mild, Other (DISTENDED ) Skin: Normal Musculoskeletal: Normal Psychiatric: Normal Mood Description: Calm Affect: Normal Speech Pattern: Clear, Appropriate - Laboratory and Diagnostics Result Diagrams: 08/21/21 05:11 08/21/21 05:11 Labs: 08/12/21 12:05 Blood Blood Culture - Final 08/12/21 11:55 Blood Blood Culture - Final 08/13/21 10:00 Urine,[place] Urine Culture - Final 08/09/21 13:16 Urine,Clean Catch Urine Culture - Final Escherichia Coli 08/10/21 06:00 Blood Blood Culture - Final Escherichia Coli 08/10/21 05:38 Blood Blood Culture - Final Escherichia Coli Laboratory WBC 11.6 X10^3/uL (3.6-10.0) H 08/21/21 05:11 RBC 2.92 X10^6/uL (4.7-6.0) L 08/21/21 05:11 Hgb 8.5 g/dL (13.5-18.0) L 08/21/21 05:11 Hct 25.6 % (42.0-54.0) L 08/21/21 05:11 MCV 87.7 fL (80.0-100.0) 08/21/21 05:11 MCH 29.1 pg (27.0-34.0) 08/21/21 05:11 MCHC 33.2 g/dL (33.0-35.0) 08/21/21 05:11 RDW 14.5 % (11.6-16.5) 08/21/21 05:11 Plt Count 370 X10^3/uL (150.0-450.0) 08/21/21 05:11 Plt Count Comment Adequate (ADEQUATE) 08/12/21 05:26 MPV 8.5 fL (7.4-11.0) 08/21/21 05:11 Neut % (Auto) 81.8 % (42.0-75.0) H 08/21/21 05:11 Lymph % (Auto) 8.3 % (21.0-51.0) L 08/21/21 05:11 Elliott % (Auto) 6.0 % (0.0-13.0) 08/21/21 05:11 Eos % (Auto) 3.2 % (0.9-2.9) H 08/21/21 05:11 Baso % (Auto) 0.7 % (0.2-1.0) 08/21/21 05:11 Neut # (Auto) 9.4 x10^3/uL (2.2-4.8) H 08/21/21 05:11 Lymph # (Auto) 1.0 X10^3/uL (1.3-2.9) L 08/21/21 05:11 Elliott # (Auto) 0.7 x10^3/uL (0.3-0.8) 08/21/21 05:11 Eos # (Auto) 0.4 x10^3/uL (0.0-0.2) H 08/21/21 05:11 Baso # (Auto) 0.1 X10^3/uL (0.0-0.1) 08/21/21 05:11 Absolute Nucleated RBC 0.1 /100WBC 08/21/21 05:11 Total Counted 100 08/12/21 05:26 Neutrophils % (Manual) 90 % (39-76) H 08/12/21 05:26 Band Neutrophils % 7 % (0-10) 08/11/21 05:30 Lymphocytes % (Manual) 4 % (13-43) L 08/12/21 05:26 Monocytes % (Manual) 6 % (4-9) 08/12/21 05:26 Metamyelocytes % 3 08/09/21 13:00 Plt Morphology Comment Normal (NORMAL) 08/12/21 05:26 RBC Morphology Normal (NORMAL) 08/12/21 05:26 Sodium 151 mmol/L (136-145) H* 08/21/21 05:11 Corrected Sodium 152 mmol/L (136-145) H 08/21/21 05:11 Potassium 3.7 mmol/L (3.5-5.1) 08/21/21 05:11 Chloride 115 mmol/L (98-107) H* 08/21/21 05:11 Carbon Dioxide 23.5 mmol/L (21-32) 08/21/21 05:11 BUN 41 mg/dL (7-18) H 08/21/21 05:11 Creatinine 3.81 mg/dL (0.70-1.30) H 08/21/21 05:11 Est GFR (MDRD) Af Amer 20 (>60) L 08/21/21 05:11 Est GFR (MDRD) Non-Af 17 (>60) L 08/21/21 05:11 Glucose 154 mg/dL (65-99) H 08/21/21 05:11 POC Glucose (mg/dL) 139 mg/dL (65-99) H 08/21/21 05:26 Calcium 8.5 mg/dL (8.5-10.1) 08/21/21 05:11 Corrected Calcium 9.1 mg/dL (8.5-10.1) 08/21/21 05:11 Total Bilirubin 0.50 mg/dL (0.2-1.0) 08/21/21 05:11 AST 14 Units/L (15-37) L 08/21/21 05:11 ALT 13 Units/L (12-78) 08/21/21 05:11 Alkaline Phosphatase 106 Units/L (46-116) 08/21/21 05:11 Creatine Kinase 62 Units/L (39-308) 08/09/21 13:00 CK-MB (CK-2) < 1.0 ng/mL (0-4.0) 08/09/21 13:00 CK/CKMB % Calc 1.6 % (<4) 08/09/21 13:00 Troponin I < 0.02 ng/mL (0-1.5) 08/09/21 13:00 C-Reactive Protein 118.70 mg/L (0-3.0) H 08/21/21 05:11 B-Natriuretic Peptide 766 pg/mL (0-79) H* 08/21/21 05:11 Total Protein 7.2 g/dL (6.4-8.2) 08/21/21 05:11 Albumin 3.2 g/dL (3.4-5.0) L 08/21/21 05:11 Globulin 4.0 g/dL (2.5-4.5) 08/21/21 05:11 Albumin/Globulin Ratio 0.8 Ratio (1.1-2.1) L 08/21/21 05:11 Specimen Type Catherized urine 08/13/21 10:00 Urine Color Yellow (YELLOW) 08/13/21 10:00 Urine Appearance Clear (CLEAR) 08/13/21 10:00 Urine pH 5.0 (5.0 - 8.0) 08/13/21 10:00 Ur Specific [place] 1.010 (1.000-1.030) 08/13/21 10:00 Urine Protein 2+ (NEGATIVE) 08/13/21 10:00 Urine Glucose (UA) 3+ (NEGATIVE) 08/13/21 10:00 Urine Ketones Negative (NEGATIVE) 08/13/21 10:00 Urine Occult Blood 5+ (NEGATIVE) 08/13/21 10:00 Urine Nitrite Negative (NEGATIVE) 08/13/21 10:00 Urine Bilirubin Negative (NEGATIVE) 08/13/21 10:00 Urine Urobilinogen Normal (NORMAL) 08/13/21 10:00 Ur Leukocyte Esterase 3+ (NEGATIVE) 08/13/21 10:00 Urine RBC 3-5 /HPF (0-3) A 08/13/21 10:00 Urine WBC 20-30 /HPF (0-5) A 08/13/21 10:00 Ur Squamous Epith Cells Rare /HPF (NEGATIVE) 08/13/21 10:00 Amorphous Sediment Trace /HPF (NEGATIVE) 08/13/21 10:00 Urine Bacteria Trace /HPF (NEGATIVE) 08/13/21 10:00 Granular Casts Few /LPF (NEGATIVE) 08/09/21 13:16 Urine Mucus Numerous /HPF (NEGATIVE) 08/09/21 13:16 Ur Culture Indicated? Yes/culture set up 08/13/21 10:00 SARS-CoV-2 (PCR) Negative (NEGATIVE) 08/09/21 13:12 Influenza Type A (PCR) Negative (NEGATIVE) 08/09/21 13:12 Influenza Type B (PCR) Negative (NEGATIVE) 08/09/21 13:12 RSV (PCR) Negative (NEGATIVE) 08/09/21 13:12 - Plan (1) E coli bacteremia Status: Acute Plan: 1/2 NORMAL SALINE AT 20 ML/HR, INVANZ 0.5MG IV DAILY, IV ZOSYN, ALBUMIN 25% IV BID, LASIX 20MG IV BID X 2 DOSES, SOLU-MEDROL 40MG IV Q8H, CONTINUE OTHER PLAN OF CARE (2) Acute UTI Status: Acute (3) Pneumonia Status: Acute Qualifiers: Pneumonia type: due to unspecified organism Laterality: right Lung location: lower lobe of lung Qualified Code(s): J18.9 - Pneumonia, unspecified organism Plan: SUPPLEMENTAL OXYGEN, IV ANTIBIOTICS, DUONEBS, MONITOR LABS AND CHEST XRAY (4) Acute renal injury Status: Acute (5) Hyperglycemia due to type 2 diabetes mellitus Status: Acute Qualifiers: Diabetes mellitus alf insulin use: unspecified terminal block assembler insulin use status Qualified Code(s): E11.65 - Type 2 diabetes mellitus with hyperglycemia Plan: OTBS ACHS, HUMULIN R SLIDING SCALE (6) Anemia Status: Acute Qualifiers: Anemia type: iron deficiency Iron deficiency anemia type: unspecified iron deficiency Qualified Code(s): D50.9 - Iron deficiency anemia, unspecified Plan: PROCRIT 5,000UNITS SC X 1 DOSE
[2021-08-21] MEDS: SNACK - Diabetic Appropriate PO SCH (20:31)
[2021-08-21] MEDS: COLACE CAP 100 MG PO SCH (20:32)
[2021-08-21] MEDS: HumuLIN R SC PRN (20:35)
[2021-08-22] MEDS: MYLICON TAB 80 MG CHEW PO SCH ×3 (05:44→21:00)
[2021-08-22] MEDS: SOLU-Medrol 40 MG VIAL IVP SCH ×3 (05:44→21:00)
[2021-08-22] MEDS: HumuLIN R SC PRN ×4 (05:45→21:30)
--- NOTE | 2021-08-22 06:03 | RAD ---
HISTORYShortness of breathSTUDYChest AP [id number]/09/2021FINDINGSHear t remains enlarged. Bilateral interstitial infiltrates are present. No definite ground-glass or alveolar infiltrates remain. No pleural effusions are identified. Bony thorax is unremarkable.IMPRESSIONImproving bilateral infiltrates with only bilateral interstitial infiltrates remainingMild cardiomegalyElectronically signed by: LANETTE GARZON (Aug 22, 2021 06:00:52)
[2021-08-22 06:15] LABS: BASOPHILS % (AUTO) 0.1 % (0.2-1.0); HEMOGLOBIN 9.2 g/dL (13.5-18.0); LYMPHOCYTES # (AUTO) 0.6 X10^3/uL (1.3-2.9); LYMPHOCYTES % (AUTO) 6.2 % (21.0-51.0); MEAN CORPUSCULAR HEMOGLOBIN 29.1 pg (27.0-34.0); MEAN CORPUSCULAR HGB CONC 32.9 g/dL (33.0-35.0); MEAN CORPUSCULAR VOLUME 88.4 fL (80.0-100.0); MEAN PLATELET VOLUME 9.1 fL (7.4-11.0); MONOCYTES # (AUTO) 0.2 x10^3/uL (0.3-0.8); MONOCYTES % (AUTO) 2.2 % (0.0-13.0); NEUTROPHILS # (AUTO) 8.7 x10^3/uL (2.2-4.8); NEUTROPHILS % (AUTO) 91.5 % (42.0-75.0); PLATELET COUNT 317 X10^3/uL (150.0-450.0); RED BLOOD COUNT 3.17 X10^6/uL (4.7-6.0); RED CELL DISTRIBUTION WIDTH 13.9 % (11.6-16.5); WHITE BLOOD COUNT 9.6 X10^3/uL (3.6-10.0)
[2021-08-22 06:32] LABS: ALANINE AMINOTRANSFERASE 14 Units/L (12-78); ALBUMIN 3.5 g/dL (3.4-5.0); ALKALINE PHOSPHATASE 115 Units/L (46-116); ASPARTATE AMINO TRANSFERASE 14 Units/L (15-37); BLOOD UREA NITROGEN 56 mg/dL (7-18); CARBON DIOXIDE 21.5 mmol/L (21-32); CHLORIDE 109 mmol/L (98-107); COR NA(FOR HYPERGLY) 152 mmol/L (136-145); CREATININE 3.72 mg/dL (0.70-1.30); SODIUM 146 mmol/L (136-145); TOTAL PROTEIN 7.8 g/dL (6.4-8.2); eGFR NON BLACK RACES 17 (>60)
[2021-08-22 07:01] LABS: BAND NEUTROPHILS % 1 % (0-10); PLATELET MORPHOLOGY COMMENT NORMAL (NORMAL)
[2021-08-22] MEDS: DUONEB 0.5 MG/3 MG (3 mL) NEB SCH ×4 (09:00→20:32)
[2021-08-22] MEDS: MILK OF MAGNESIA PO SCH ×2 (09:02→20:30)
[2021-08-22] MEDS: GLUCOTROL XL 24-HR PO SCH (09:02)
[2021-08-22] MEDS: HYTRIN PO SCH (09:03)
[2021-08-22] MEDS: LASIX IVP SCH ×2 (09:03→20:30)
[2021-08-22] MEDS: NYSTATIN SUSP MT SCH ×4 (09:04→20:30)
[2021-08-22] MEDS: INVANZ INJ 1 GM VIAL 0.5 GM in NS 50 ML IV 50 ML IV SCH (09:04)
[2021-08-22] MEDS: PROTONIX TAB 40 MG PO SCH ×2 (09:04→20:31)
[2021-08-22] MEDS: PERIDEX or PERIOGARD MT SCH ×2 (09:04→20:31)
[2021-08-22] MEDS: NORVASC TAB 5 MG PO SCH (09:05)
[2021-08-22] MEDS: NYSTATIN POWDER TOP SCH ×2 (09:05→20:30)
[2021-08-22] MEDS: ZOSYN VIAL 3.375 GRAMS 3.375 G in NS 100 ML IV + SPIKE MINIBAG* 100 ML IV SCH ×3 (09:05→20:30)
[2021-08-22] MEDS: MAGIC MOUTHWASH (Orig. Formula) MT SCH ×4 (09:05→20:30)
[2021-08-22] MEDS: LOVENOX INJ 30 MG SYR SC SCH (09:18)
[2021-08-22] MEDS: ALBUMIN HUMAN 25%- 100 ML 100 ML IV SCH ×2 (09:46→20:29)
--- NOTE | 2021-08-22 10:59 | PCM.PROG ---
Progress Note - Progress Note for Day of Date of Exam: 08/22/21 - Subjective Subjective: IS BEING TREATED FOR E.COLI BACTEREMIA, E.COLI UTI, PNEUMONIA, ACUTE RENAL INJURY, HYPERGLYCEMIA, AND GENERALIZED WEAKNESS. TODAY, HE IS ALERT AND ORIENTED, LYING IN BED ON MORNING ROUNDS. HE CONTINUES WITH COMPLAINTS OF WEAKNESS AND SHORTNESS OF BREATH. HE DOES CONTINUE TO HAVE MILD ABDOMINAL PAIN AT TIMES. HE DOES REPORT ALL SYMPTOMS TO BE SLIGHTLY IMPROVED TODAY. HE IS CURRENTLY ON OXYGEN VIA NASAL CANNULA AT 4 LPM. HE IS WEAK WHEN AMBULATING AND REQUIRES ASSISTANCE. ON EXAMINATION TODAY, HEART IS REGULAR IN RATE AND RHYTHM. BILATERAL LUNGS NOTED WITH DIMINISHED LUNDS. ABDOMEN IS ROUND, SOFT, AND NOTED WITH SUPRAPUBIC TENDERNESS TO PALPATION. TRACE EDEMA NOTED TO LOWER EXTREMITIES. HIS VITALS THIS MORNING ARE: 97.5-71-22-90%-139/69. LABS WERE OBTAINED. RBC 3.17, HGB 9.2, HCT 28.0, SODIUM 146, CHLORIDE 109, BUN 56, CREATININE 3.72, GLUCOSE 243, AST 14, CRP 119.90, BNP 808. WE OBTAINED A CHEST XRAY THIS MORNING. IT REVEALED: Improving bilateral infiltrates with only ciaran ateral interstitial infiltrates remaining. Mild cardiomegaly. HE IS CURRENTLY RECEIVING NORMAL SALINE AT KVO, SOLU-MEDROL 40MG IV Q8H, LASIX 20MG IV BID, ALBUMIN 25% IV BID, INVANZ 0.5G IV DAILY, ZOSYN IV, OTBS ACHS, HUMULIN R SLIDING SCALE, TYLENOL 650MG PO Q4H PRN, COLACE 200MG PO HS, MILK OF MAGNESIA 30ML PO BID, ZOFRAN 4MG IV Q6H PRN, DIFLUCAN 100MG PO DAILY, MAGIC MOUTHWASH, NYSTATN SWISH AND SWALLOW, PROTONIX, PHENERGAN PRN, MYLICON 80MG PO TID, ROBITUSSIN DM 10ML PO Q4H PRN, AND HIS HOME MEDICATIONS OF NORVASC, GLIPIZIDE, NORCO, AND TERAZOXIN WERE RESUMED. WE WILL ORDER FOR HIM TO WEAR THE BIPAP WHILE SLEEPING. OTHERWISE, WE WILL CONTINUE WITH CURRENT PLAN OF CARE. WE PLAN TO FOLLOW UP WITH AM LABS AND CONTINUE TO MONITOR. TIME SPENT ON CLINICAL ASSESSMENT, REVIEWING LABS AND IMAGING, DECISION MAKING, AND DOCUMENTATION GREATER THAN 45 MINUTES. - Past Medical Family Social History Past Med/Fam/Surg Hx: No changes since H&P Allergies: Allergies codeine Allergy (Verified 08/09/21 12:43) erythromycin base Allergy (Verified 08/09/21 12:43) shellfish derived Allergy (Verified 08/09/21 12:43) - Review of Systems ROS: No change since H&P - Vital Signs and I&O's Vital Signs: Temperature 97.5 F Pulse Rate [Radial] 71 Pulse Rate 70 Respiratory Rate 22 Blood Pressure [Left Arm] 139/69 Blood Pressure 118/59 O2 Sat by Pulse Oximetry 95 Intake and Output: Intake & Output 08/19/21 08/20/21 08/21/21 08/22/21 11:59 11:59 11:59 11:59 Intake Total 460 / 460 3475 / 3475 1785 / 1785 Output Total 3000 / 3000 3955 / 3955 4300 / 4300 Balance -2540 / -2540 -480 / -480 -2515 / -2515 - Physical Exam Oriented: Normal Eyes: Normal Ear: Normal Nose: Normal Throat: Other (CANDIDIASIS) Respiratory: Normal, Diminished Cardiovascular: Normal : Dysuria Auscultation: Bowel Sounds: Normal Palpation: Normal Tenderness: Suprapubic, Mild, Other Skin: Normal Musculoskeletal: Normal Psychiatric: Normal Mood Description: Calm Affect: Normal Speech Pattern: Clear, Appropriate - Laboratory and Diagnostics Result Diagrams: 08/22/21 05:30 08/22/21 05:30 Labs: 08/12/21 12:05 Blood Blood Culture - Final 08/12/21 11:55 Blood Blood Culture - Final 08/13/21 10:00 Urine,[place] Urine Culture - Final 08/09/21 13:16 Urine,Clean Catch Urine Culture - Final Escherichia Coli 08/10/21 06:00 Blood Blood Culture - Final Escherichia Coli 08/10/21 05:38 Blood Blood Culture - Final Escherichia Coli Laboratory WBC 9.6 X10^3/uL (3.6-10.0) 08/22/21 05:30 RBC 3.17 X10^6/uL (4.7-6.0) L 08/22/21 05:30 Hgb 9.2 g/dL (13.5-18.0) L 08/22/21 05:30 Hct 28.0 % (42.0-54.0) L 08/22/21 05:30 MCV 88.4 fL (80.0-100.0) 08/22/21 05:30 MCH 29.1 pg (27.0-34.0) 08/22/21 05:30 MCHC 32.9 g/dL (33.0-35.0) L 08/22/21 05:30 RDW 13.9 % (11.6-16.5) 08/22/21 05:30 Plt Count 317 X10^3/uL (150.0-450.0) 08/22/21 05:30 Plt Count Comment Adequate (ADEQUATE) 08/22/21 05:30 MPV 9.1 fL (7.4-11.0) 08/22/21 05:30 Neut % (Auto) 91.5 % (42.0-75.0) H 08/22/21 05:30 Lymph % (Auto) 6.2 % (21.0-51.0) L 08/22/21 05:30 [place] % (Auto) 2.2 % (0.0-13.0) 08/22/21 05:30 Eos % (Auto) 0.0 % (0.9-2.9) L 08/22/21 05:30 Baso % (Auto) 0.1 % (0.2-1.0) L 08/22/21 05:30 Neut # (Auto) 8.7 x10^3/uL (2.2-4.8) H 08/22/21 05:30 Lymph # (Auto) 0.6 X10^3/uL (1.3-2.9) L 08/22/21 05:30 [place] # (Auto) 0.2 x10^3/uL (0.3-0.8) L 08/22/21 05:30 Eos # (Auto) 0.0 x10^3/uL (0.0-0.2) 08/22/21 05:30 Baso # (Auto) 0.0 X10^3/uL (0.0-0.1) 08/22/21 05:30 Absolute Nucleated RBC 0.1 /100WBC 08/22/21 05:30 Total Counted 100 08/22/21 05:30 Neutrophils % (Manual) 96 % (39-76) H 08/22/21 05:30 Band Neutrophils % 1 % (0-10) 08/22/21 05:30 Lymphocytes % (Manual) 3 % (13-43) L 08/22/21 05:30 Monocytes % (Manual) 6 % (4-9) 08/12/21 05:26 Metamyelocytes % 3 08/09/21 13:00 Plt Morphology Comment Normal (NORMAL) 08/22/21 05:30 RBC Morphology Normal (NORMAL) 08/22/21 05:30 Sodium 146 mmol/L (136-145) H 08/22/21 05:30 Corrected Sodium 152 mmol/L (136-145) H 08/22/21 05:30 Potassium 4.3 mmol/L (3.5-5.1) 08/22/21 05:30 Chloride 109 mmol/L (98-107) H 08/22/21 05:30 Carbon Dioxide 21.5 mmol/L (21-32) 08/22/21 05:30 BUN 56 mg/dL (7-18) H 08/22/21 05:30 Creatinine 3.72 mg/dL (0.70-1.30) H 08/22/21 05:30 Est GFR (MDRD) Af Amer 21 (>60) L 08/22/21 05:30 Est GFR (MDRD) Non-Af 17 (>60) L 08/22/21 05:30 Glucose 343 mg/dL (65-99) H 08/22/21 05:30 POC Glucose (mg/dL) 319 mg/dL (65-99) H 08/22/21 05:28 Calcium 9.0 mg/dL (8.5-10.1) 08/22/21 05:30 Corrected Calcium TNP 08/22/21 05:30 Total Bilirubin 0.40 mg/dL (0.2-1.0) 08/22/21 05:30 AST 14 Units/L (15-37) L 08/22/21 05:30 ALT 14 Units/L (12-78) 08/22/21 05:30 Alkaline Phosphatase 115 Units/L (46-116) 08/22/21 05:30 Creatine Kinase 62 Units/L (39-308) 08/09/21 13:00 CK-MB (CK-2) < 1.0 ng/mL (0-4.0) 08/09/21 13:00 CK/CKMB % Calc 1.6 % (<4) 08/09/21 13:00 Troponin I < 0.02 ng/mL (0-1.5) 08/09/21 13:00 C-Reactive Protein 119.90 mg/L (0-3.0) H 08/22/21 05:30 B-Natriuretic Peptide 808 pg/mL (0-79) H* 08/22/21 05:30 Total Protein 7.8 g/dL (6.4-8.2) 08/22/21 05:30 Albumin 3.5 g/dL (3.4-5.0) 08/22/21 05:30 Globulin 4.3 g/dL (2.5-4.5) 08/22/21 05:30 Albumin/Globulin Ratio 0.8 Ratio (1.1-2.1) L 08/22/21 05:30 Specimen Type Catherized urine 08/13/21 10:00 Urine Color Yellow (YELLOW) 08/13/21 10:00 Urine Appearance Clear (CLEAR) 08/13/21 10:00 Urine pH 5.0 (5.0 - 8.0) 08/13/21 10:00 Ur Specific [place] 1.010 (1.000-1.030) 08/13/21 10:00 Urine Protein 2+ (NEGATIVE) 08/13/21 10:00 Urine Glucose (UA) 3+ (NEGATIVE) 08/13/21 10:00 Urine Ketones Negative (NEGATIVE) 08/13/21 10:00 Urine Occult Blood 5+ (NEGATIVE) 08/13/21 10:00 Urine Nitrite Negative (NEGATIVE) 08/13/21 10:00 Urine Bilirubin Negative (NEGATIVE) 08/13/21 10:00 Urine Urobilinogen Normal (NORMAL) 08/13/21 10:00 Ur Leukocyte Esterase 3+ (NEGATIVE) 08/13/21 10:00 Urine RBC 3-5 /HPF (0-3) A 08/13/21 10:00 Urine WBC 20-30 /HPF (0-5) A 08/13/21 10:00 Ur Squamous Epith Cells Rare /HPF (NEGATIVE) 08/13/21 10:00 Amorphous Sediment Trace /HPF (NEGATIVE) 08/13/21 10:00 Urine Bacteria Trace /HPF (NEGATIVE) 08/13/21 10:00 Granular Casts Few /LPF (NEGATIVE) 08/09/21 13:16 Urine Mucus Numerous /HPF (NEGATIVE) 08/09/21 13:16 Ur Culture Indicated? Yes/culture set up 08/13/21 10:00 SARS-CoV-2 (PCR) Negative (NEGATIVE) 08/09/21 13:12 Influenza Type A (PCR) Negative (NEGATIVE) 08/09/21 13:12 Influenza Type B (PCR) Negative (NEGATIVE) 08/09/21 13:12 RSV (PCR) Negative (NEGATIVE) 08/09/21 13:12 - Plan (1) E coli bacteremia Status: Acute Plan: 1/2 NORMAL SALINE AT 20 ML/HR, INVANZ 0.5MG IV DAILY, IV ZOSYN, ALBUMIN 25% IV BID, LASIX 20MG IV BID, SOLU-MEDROL 40MG IV Q8H, CONTINUE OTHER PLAN OF CARE (2) Acute UTI Status: Acute (3) Pneumonia Status: Acute Qualifiers: Pneumonia type: due to unspecified organism Laterality: right Lung location: lower lobe of lung Qualified Code(s): J18.9 - Pneumonia, unspecified organism Plan: SUPPLEMENTAL OXYGEN, IV ANTIBIOTICS, DUONEBS, MONITOR LABS AND CHEST XRAY (4) Acute renal injury Status: Acute (5) Hyperglycemia due to type 2 diabetes mellitus Status: Acute Qualifiers: Diabetes mellitus parts counterman insulin use: unspecified parts counterman insulin use status Qualified Code(s): E11.65 - Type 2 diabetes mellitus with hyperglycemia Plan: OTBS ACHS, HUMULIN R SLIDING SCALE (6) Anemia Status: Acute Qualifiers: Anemia type: iron deficiency Iron deficiency anemia type: unspecified iron deficiency Qualified Code(s): D50.9 - Iron deficiency anemia, unspecified Plan: PROCRIT 5,000UNITS SC X 1 DOSE
[2021-08-22] MEDS ORDERED: NS 1/2 1,000 ML IV 1,000 ML IV ONE (14:17)
[2021-08-22] MEDS: NS 1/2 1,000 ML IV 1,000 ML IV SCH ×2 (14:37→21:07)
[2021-08-22] MEDS ORDERED: AYR NASAL DROPS PRN (17:38)
[2021-08-22] MEDS: NORCO 5/325 MG TAB PO PRN (20:00)
[2021-08-22] MEDS: SNACK - Diabetic Appropriate PO SCH (20:29)
[2021-08-22] MEDS: COLACE CAP 100 MG PO SCH (20:29)
[2021-08-23] MEDS ORDERED: NS 1/2 1,000 ML IV 1,000 ML IV ONE (01:11)
[2021-08-23] MEDS: MYLICON TAB 80 MG CHEW PO SCH ×2 (05:17→14:22)
[2021-08-23] MEDS: SOLU-Medrol 40 MG VIAL IVP SCH ×2 (05:18→14:22)
[2021-08-23] MEDS: HumuLIN R SC PRN ×2 (05:48→11:24)
[2021-08-23 05:54] LABS: BASOPHILS % (AUTO) 0.1 % (0.2-1.0); HEMATOCRIT 26.8 % (42.0-54.0); LYMPHOCYTES # (AUTO) 0.8 X10^3/uL (1.3-2.9); LYMPHOCYTES % (AUTO) 5.9 % (21.0-51.0); MEAN CORPUSCULAR HEMOGLOBIN 28.9 pg (27.0-34.0); MEAN CORPUSCULAR HGB CONC 33.4 g/dL (33.0-35.0); MEAN CORPUSCULAR VOLUME 86.5 fL (80.0-100.0); MONOCYTES # (AUTO) 0.4 x10^3/uL (0.3-0.8); MONOCYTES % (AUTO) 2.7 % (0.0-13.0); NEUTROPHILS # (AUTO) 12.5 x10^3/uL (2.2-4.8); NEUTROPHILS % (AUTO) 91.3 % (42.0-75.0); PLATELET COUNT 353 X10^3/uL (150.0-450.0); RED CELL DISTRIBUTION WIDTH 13.8 % (11.6-16.5); WHITE BLOOD COUNT 13.7 X10^3/uL (3.6-10.0)
--- NOTE | 2021-08-23 06:05 | RAD ---
HISTORYSOB DM. HTN, ORTHOSTUDYCHEST, 1 [id number] trachea is midline. The cardiac silhouette is mildly enlarged.. Mild bilateral infiltrates unchanged. No pleural effusion or pneumothorax.. The bony thorax is unremarkable.IMPRESSIONStable portable chest.Electronically signed by: Armin Bailey (Aug 23, 2021 06:03:54)
[2021-08-23 06:14] LABS: ALANINE AMINOTRANSFERASE 20 Units/L (12-78); ALBUMIN 3.6 g/dL (3.4-5.0); ALKALINE PHOSPHATASE 111 Units/L (46-116); ASPARTATE AMINO TRANSFERASE 19 Units/L (15-37); BLOOD UREA NITROGEN 65 mg/dL (7-18); CALCIUM 8.7 mg/dL (8.5-10.1); CARBON DIOXIDE 24.5 mmol/L (21-32); CHLORIDE 106 mmol/L (98-107); COR NA(FOR HYPERGLY) 148 mmol/L (136-145); SODIUM 143 mmol/L (136-145); TOTAL PROTEIN 7.3 g/dL (6.4-8.2); eGFR NON BLACK RACES 19 (>60)
[2021-08-23 06:38] LABS: BAND NEUTROPHILS % 2 % (0-10); PLATELET MORPHOLOGY COMMENT NORMAL (NORMAL)
[2021-08-23] MEDS: NORVASC TAB 5 MG PO SCH (08:53)
[2021-08-23] MEDS: HYTRIN PO SCH (08:53)
[2021-08-23] MEDS: LASIX IVP SCH (08:53)
[2021-08-23] MEDS: PROTONIX TAB 40 MG PO SCH (08:53)
[2021-08-23] MEDS: GLUCOTROL XL 24-HR PO SCH (08:53)
[2021-08-23] MEDS: ALBUMIN HUMAN 25%- 100 ML 100 ML IV SCH (08:57)
[2021-08-23] MEDS: LOVENOX INJ 30 MG SYR SC SCH (08:57)
[2021-08-23] MEDS: INVANZ INJ 1 GM VIAL 0.5 GM in NS 50 ML IV 50 ML IV SCH (08:57)
[2021-08-23] MEDS: NS 1/2 1,000 ML IV 1,000 ML IV SCH (09:03)
[2021-08-23] MEDS: NYSTATIN POWDER TOP SCH (09:03)
[2021-08-23] MEDS: MAGIC MOUTHWASH (Orig. Formula) MT SCH ×2 (09:03→13:20)
[2021-08-23] MEDS: MILK OF MAGNESIA PO SCH (09:03)
[2021-08-23] MEDS: ZOSYN VIAL 3.375 GRAMS 3.375 G in NS 100 ML IV + SPIKE MINIBAG* 100 ML IV SCH (09:03)
[2021-08-23] MEDS: NYSTATIN SUSP MT SCH ×2 (09:04→13:25)
[2021-08-23] MEDS: PERIDEX or PERIOGARD MT SCH (09:04)
[2021-08-23] MEDS: DUONEB 0.5 MG/3 MG (3 mL) NEB SCH (09:41)
[2021-08-23 11:46] VITALS: BP 123/58
== END 2021-08-23 14:50 | disposition home or self-care (01) | DRG 871 ==
LOC: ER 13:00 → MED/SURG 15:58
PROVIDERS: ADMIT Internal Medicine; ATTEND Internal Medicine
DX: R65.20 Severe sepsis without septic shock; D50.8 Other iron deficiency anemias; R11.2 Nausea with vomiting, unspecified; R53.1 Weakness; A41.51 Sepsis due to Escherichia coli [E. coli]; N39.0 Urinary tract infection, site not specified; Z20.822 Contact with and (suspected) exposure to COVID-19; R51.9 Headache, unspecified; R26.89 Other abnormalities of gait and mobility; J18.8 Other pneumonia, unspecified organism; B96.29 Other Escherichia coli [E. coli] as the cause of diseases classified elsewhere; N17.8 Other acute kidney failure; I10 Essential (primary) hypertension; E11.65 Type 2 diabetes mellitus with hyperglycemia; R06.02 Shortness of breath

== ENCOUNTER 2023-05-22 20:56 | Observation (INO) ==
--- NOTE | 2023-05-22 21:49 | DR.GENAD ---
HPI Time Seen Time Seen by Provider: 05/22/23 21:49 PCP Primary Care Physician: Jair Complaint/Symptoms Chief Complaint Doctors Comments: Patient was evaluated last week for weakness. Patient had an elevated TSH and was cousneled to f/u with his Pcp.Daughter states that patient was trying to get an appt with the Pcp. He presents because his symtoms are worsening.He has been sleeping for extended periods during the day and has abdominal pain that is generalized. He cannot get up to perform any activities. Patient denies:headache,chest pain,n,v,back pain extremity pain.. Chief Complaint:: Patient stated that he was seen last week in the ER for the same thing patient stated that he has had no energy and been very weak for the last weak. COVID-19 Coronavirus risk:travel/contact w/high risk person: No Has patient experienced Coronavirus symptoms: No Source History Provided: Patient Mode of Arrival Mode of Arrival: Ambulatory Timing Onset of Chief Complaint: 05/15/23 PMH PMH Past Medical History: Yes Past Medical History: Diabetes and GERD Past Surgical History: Yes Surgical History: Ortho Surgery Family History History of Family Medical Conditions: Yes Family Medical History: Diabetes Mellitus Social History Do you use any recreational Drugs:: No Travel Risk Coronavirus risk:travel/contact w/high risk person: No Has patient experienced Coronavirus symptoms: No Infectious screening In the last 2 months have you had wt loss of >10#?: NO Have you had fever, night sweats or hemotysis?: No Have you traveled outside the country in the last 6 months?: No Isolation: Standard ROS Review of Systems Constitutional: Weakness Eyes: No Symptoms Reported ENTM: No Symptoms Reported Respiratoy: No Symptoms Reported Cardiovascular: negative Chest Pain or Palpitations Gastrointestinal/Abdominal: Abdominal Pain (generalized); negative Diarrhea or Nausea Genitourinary: No Symptoms Reported Neurological: negative Headache, Numbness, Paresthesia or Tingling Musculoskeletal: negative Back Pain Integumentary: No Symptoms Reported Hematologic/Lymphatic: No Symptoms Reported Endocrine: No Symptoms Reported Psychiatric: No Symptoms Reported All Other Systems: Reviewed and Negative PE Vital Signs Vitals: Vital Signs Temperature 98.5 F Pulse Rate [Left] 95 Pulse Rate [Left] 92 Pulse Rate [Left] 85 Pulse Rate 81 Pulse Rate 79 Pulse Rate 80 Pulse Rate 83 Pulse Rate 87 Pulse Rate 97 Pulse Rate 96 Pulse Rate 93 Pulse Rate 89 Pulse Rate 86 Pulse Rate 87 Pulse Rate 93 Pulse Rate 97 Pulse Rate 88 Pulse Rate 85 Pulse Rate 87 Pulse Rate 87 Pulse Rate 87 Pulse Rate 86 Pulse Rate 90 Pulse Rate 96 Pulse Rate 103 Pulse Rate 86 Pulse Rate 86 Pulse Rate 87 Pulse Rate 85 Pulse Rate 87 Pulse Rate 85 Pulse Rate 87 Pulse Rate 87 Pulse Rate 88 Pulse Rate 91 Pulse Rate 91 Pulse Rate 90 Pulse Rate 90 Pulse Rate 92 Pulse Rate 96 Pulse Rate 98 Pulse Rate 100 Pulse Rate 103 Pulse Rate 111 Respiratory Rate 24 Respiratory Rate 24 Respiratory Rate 23 Respiratory Rate 19 Respiratory Rate 15 Respiratory Rate 39 Respiratory Rate 24 Respiratory Rate 28 Respiratory Rate 37 Respiratory Rate 22 Respiratory Rate 20 Respiratory Rate 27 Respiratory Rate 13 Respiratory Rate 27 Respiratory Rate 24 Respiratory Rate 26 Respiratory Rate 16 Respiratory Rate 22 Respiratory Rate 13 Respiratory Rate 10 Respiratory Rate 17 Respiratory Rate 23 Respiratory Rate 22 Respiratory Rate 20 Respiratory Rate 23 Respiratory Rate 24 Respiratory Rate 23 Respiratory Rate 25 Respiratory Rate 26 Respiratory Rate 20 Respiratory Rate 17 Respiratory Rate 28 Respiratory Rate 24 Respiratory Rate 26 Respiratory Rate 17 Respiratory Rate 14 Respiratory Rate 15 Respiratory Rate 15 Respiratory Rate 20 Blood Pressure [Left Arm] 124/69 Blood Pressure [Left Arm] 118/62 Blood Pressure [Left Arm] 174/83 Blood Pressure 159/77 Blood Pressure 167/80 Blood Pressure 123/70 Blood Pressure 124/69 Blood Pressure 118/62 Blood Pressure 174/83 Blood Pressure 155/83 Blood Pressure 146/82 Blood Pressure 98/57 Blood Pressure 104/64 Blood Pressure 153/81 Blood Pressure 156/80 Blood Pressure 160/79 Blood Pressure 169/81 Blood Pressure 143/75 Blood Pressure 156/79 Blood Pressure 155/82 Blood Pressure 152/79 Blood Pressure 138/75 Blood Pressure 138/76 Blood Pressure 139/76 Blood Pressure 145/78 Blood Pressure 141/78 Blood Pressure 142/76 Blood Pressure 152/84 Blood Pressure 159/84 Blood Pressure 152/83 Blood Pressure 151/84 Blood Pressure 155/79 Blood Pressure 74/50 O2 Sat by Pulse Oximetry 93 O2 Sat by Pulse Oximetry 92 O2 Sat by Pulse Oximetry 94 O2 Sat by Pulse Oximetry 94 O2 Sat by Pulse Oximetry 98 O2 Sat by Pulse Oximetry 91 O2 Sat by Pulse Oximetry 98 O2 Sat by Pulse Oximetry 98 O2 Sat by Pulse Oximetry 95 O2 Sat by Pulse Oximetry 98 O2 Sat by Pulse Oximetry 96 O2 Sat by Pulse Oximetry 91 O2 Sat by Pulse Oximetry 92 O2 Sat by Pulse Oximetry 95 O2 Sat by Pulse Oximetry 93 O2 Sat by Pulse Oximetry 91 O2 Sat by Pulse Oximetry 93 O2 Sat by Pulse Oximetry 96 O2 Sat by Pulse Oximetry 96 O2 Sat by Pulse Oximetry 97 O2 Sat by Pulse Oximetry 92 O2 Sat by Pulse Oximetry 93 O2 Sat by Pulse Oximetry 93 O2 Sat by Pulse Oximetry 96 O2 Sat by Pulse Oximetry 94 O2 Sat by Pulse Oximetry 93 O2 Sat by Pulse Oximetry 94 O2 Sat by Pulse Oximetry 91 O2 Sat by Pulse Oximetry 93 O2 Sat by Pulse Oximetry 93 O2 Sat by Pulse Oximetry 93 O2 Sat by Pulse Oximetry 93 O2 Sat by Pulse Oximetry 90 O2 Sat by Pulse Oximetry 95 O2 Sat by Pulse Oximetry 91 O2 Sat by Pulse Oximetry 94 O2 Sat by Pulse Oximetry 96 O2 Sat by Pulse Oximetry 95 General Limitations: No Limitations General Appearance: Alert and In No Apparent Distress Head Head Exam: Normal Inspection Eyes Eye exam: Normal Appearance ENT ENT Exam: Normal Exam External Ear Exam: Normal External Inspection TM/Canal Exam: Bilateral: Normal Nose Exam: Normal Nose Exam Mouth Exam: Normal Inspection Throat Exam: Normal Inspection Neck Neck Exam: Normal Inspection Chest Chest Inspection: Normal Inspection Respiratory Respiratory Exam: Normal Lung Sounds Bilat Respiratory Exam: Bilateral: Clear to Auscultation Cardiovascular Cardiovascular Exam: Regular Rate and Normal Rhythm Abdominal Exam Abdominal Exam: Soft, Tenderness (generalized), Guarding and Hypoactive Bowel Sounds Abdominal Tenderness: RUQ, RLQ, LUQ and LLQ Extremities Extremities Exam: Normal Inspection Back Back Exam: Normal Inspection Neurologic Neurological Exam: Alert and Oriented X3 Psychiatric Psychiatric Exam: Normal Affect and Normal Mood Skin Skin Exam: Warm, Dry, Intact and Normal Color MDM Differential Diagnosis Differential Diagnosis: obstruction,perforation,inflammation,UTI,electrolyte abnormality,Hypothyroi COURSE Treatment Treatment: Patient was brought to a monitored room.IV access was initatiated.Patient had orthostatic hypotension (lying 174/83, Standing 124/69) and eecived NS 1L bolus iv. Patient 's abd/pelvis CT revealed cystitis.He was given Zosyn 3.375mg iv. Patient 's wbc is 7.5( decr from 8.7 on 05/17/23), Covid-19 is neg,H/H 13.1/38.8. Patient continues with WOODY( creatinine 1.89) Discussed case with Dr Adam who has admitted the patient to his service for fu rther evaluation. ROR Labs Reviewed Laboratory Results Reviewed?: Yes 05/22/23 22:45 05/22/23 22:45 Laboratory: WBC 7.5 X10^3/uL (3.6-10.0) 05/22/23 22:45 RBC 4.52 X10^6/uL (4.7-6.0) L 05/22/23 22:45 Hgb 13.1 g/dL (13.5-18.0) L 05/22/23 22:45 Hct 38.8 % (42.0-54.0) L 05/22/23 22:45 MCV 85.8 fL (80.0-100.0) 05/22/23 22:45 MCH 29.0 pg (27.0-34.0) 05/22/23 22:45 MCHC 33.8 g/dL (33.0-35.0) 05/22/23 22:45 RDW 13.5 % (11.6-16.5) 05/22/23 22:45 Plt Count 319 X10^3/uL (150.0-450.0) 05/22/23 22:45 MPV 7.4 fL (7.4-11.0) 05/22/23 22:45 Neut % (Auto) 70.3 % (42.0-75.0) 05/22/23 22:45 Lymph % (Auto) 17.6 % (21.0-51.0) L 05/22/23 22:45 [place] % (Auto) 11.6 % (0.0-13.0) 05/22/23 22:45 Eos % (Auto) 0.2 % (0.9-2.9) L 05/22/23 22:45 Baso % (Auto) 0.3 % (0.2-1.0) 05/22/23 22:45 Neut # (Auto) 5.3 x10^3/uL (2.2-4.8) H 05/22/23 22:45 Lymph # (Auto) 1.3 X10^3/uL (1.3-2.9) 05/22/23 22:45 [place] # (Auto) 0.9 x10^3/uL (0.3-0.8) H 05/22/23 22:45 Eos # (Auto) 0.0 x10^3/uL (0.0-0.2) 05/22/23 22:45 Baso # (Auto) 0.0 X10^3/uL (0.0-0.1) 05/22/23 22:45 Absolute Nucleated RBC 0.0 /100WBC 05/22/23 22:45 Sodium 134 mmol/L (136-145) L 05/22/23 22:45 Corrected Sodium 137 mmol/L (136-145) 05/22/23 22:45 Potassium 4.0 mmol/L (3.5-5.1) 05/22/23 22:45 Chloride 99 mmol/L (98-107) 05/22/23 22:45 Carbon Dioxide 27.7 mmol/L (21-32) 05/22/23 22:45 BUN 19 mg/dL (7-18) H 05/22/23 22:45 Creatinine 1.89 mg/dL (0.70-1.30) H 05/22/23 22:45 Est GFR (MDRD) Af Amer 45 (>60) L 05/22/23 22:45 Est GFR (MDRD) Non-Af 38 (>60) L 05/22/23 22:45 Glucose 214 mg/dL (65-99) H 05/22/23 22:45 Calcium 8.2 mg/dL (8.5-10.1) L 05/22/23 22:45 Corrected Calcium 9.2 mg/dL (8.5-10.1) 05/22/23 22:45 Total Bilirubin 0.40 mg/dL (0.2-1.0) 05/22/23 22:45 AST 17 Units/L (15-37) 05/22/23 22:45 ALT 15 Units/L (12-78) 05/22/23 22:45 Alkaline Phosphatase 107 Units/L (46-116) 05/22/23 22:45 Total Protein 6.9 g/dL (6.4-8.2) 05/22/23 22:45 Albumin 2.7 g/dL (3.4-5.0) L 05/22/23 22:45 Globulin 4.2 g/dL (2.5-4.5) 05/22/23 22:45 Albumin/Globulin Ratio 0.6 Ratio (1.1-2.1) L 05/22/23 22:45 SARS-CoV-2 (PCR) Negative (NEGATIVE) 05/22/23 23:13 Opioid Opioid Risk Tool Age (Son box if 16-45): No History of Preadolescent Sexual Abuse: No Total: 0 Total Score Risk Category: Low Risk Copyright: [employer] predicting aberrant behaviors Discharge Plan Diagnosis Discharge Problem: Generalized weakness, Cystitis, Hypothyroidism Discharge Plan Patient Disposition: ADMITTED INPATIENT Condition: Stable Prescriptions: No Action glipizide 10 mg tablet extended release 24hr 10 mg PO DAILY Patient Comments: TAKE ONE TABLET BY MOUTH DAILY terazosin 10 mg Capsule 10 mg PO QHS Qty: 30 3RF Rx Instructions: TAKE ONE TABLET AT BEDTIME pantoprazole [Protonix] [address] For Susp In Packet 40 mg PO BID cetirizine [Zyrtec] 10 mg Tablet 10 mg PO QDAY ropinirole [Requip] 5 mg Tablet 5 mg PO BID insulin degludec [Tresiba U-100 Insulin] 100 unit/mL Solution 16 unit SUBCUT QDAY Rybelsus 3 mg Tablet 3 mg PO QDAY Health Concerns: Post Hospitalization: new medications and changes needed to prevent readmission or further decline. Pt educated and given instructions on all concerns. Plan of Treatment: Continue with present treatment and follow up plan. Pt is to keep follow up appointment as instructed and take medications as ordered. Orders to Discharge Patient Discharge Orders: Transfer (Routine); Ordered 05/23/23 Ordered By: Jasmin Victoria Follow ups/Referrals Follow ups/Referrals: Duran Adam [Primary Care Provider] - 3 days Instructions Stand Alone Forms: Post Hospital Follow Up Care
[2023-05-22 23:05] LABS: HEMATOCRIT 38.8 % (42.0-54.0); MEAN CORPUSCULAR VOLUME 85.8 fL (80.0-100.0)
[2023-05-22 23:08] LABS: BASOPHILS % (AUTO) 0.3 % (0.2-1.0); EOSINOPHILS % (AUTO) 0.2 % (0.9-2.9); HEMOGLOBIN 13.1 g/dL (13.5-18.0); LYMPHOCYTES # (AUTO) 1.3 X10^3/uL (1.3-2.9); LYMPHOCYTES % (AUTO) 17.6 % (21.0-51.0); MEAN CORPUSCULAR HGB CONC 33.8 g/dL (33.0-35.0); MEAN PLATELET VOLUME 7.4 fL (7.4-11.0); MONOCYTES # (AUTO) 0.9 x10^3/uL (0.3-0.8); MONOCYTES % (AUTO) 11.6 % (0.0-13.0); NEUTROPHILS # (AUTO) 5.3 x10^3/uL (2.2-4.8); NEUTROPHILS % (AUTO) 70.3 % (42.0-75.0); PLATELET COUNT 319 X10^3/uL (150.0-450.0); RED BLOOD COUNT 4.52 X10^6/uL (4.7-6.0); RED CELL DISTRIBUTION WIDTH 13.5 % (11.6-16.5); WHITE BLOOD COUNT 7.5 X10^3/uL (3.6-10.0)
[2023-05-22 23:12] LABS: ALBUMIN 2.7 g/dL (3.4-5.0); CALCIUM 8.2 mg/dL (8.5-10.1); CARBON DIOXIDE 27.7 mmol/L (21-32); COR CA(FOR HYPOALB) 9.2 mg/dL (8.5-10.1); CREATININE 1.89 mg/dL (0.70-1.30); TOTAL PROTEIN 6.9 g/dL (6.4-8.2)
[2023-05-22] MEDS ORDERED: NS 1,000 ML IV 1,000 ML ONE (23:15)
[2023-05-22] MEDS: NS 1,000 ML IV 1,000 ML IV SCH (23:17)
--- NOTE | 2023-05-23 | CT ---
HISTORYAbdominal discomfort, weakness, persistent symptomsSTUDYABDOMEN/PELVIS W/O CONCOMPARISONNoneTECHNIQUEMultiple axial images of the abdomen and pelvis were obtained from the lung bases to the pubic symphysis without the administration of IV contrast. Dose reduction techniques including Automated Exposure Control (AEC) and adjustment of mA and kV were utilized.FINDINGSThe lung bases are clear. Coronary atherosclerotic calcifications. The abdominal aorta tapers normally. Respiratory motion artifact reduces sensitivity.Fatty infiltration throughout the liver. Noninflamed gallbladder. Normal adrenal glands. No renal stones. Normal tapering ureters.Unremarkable spleen. Noninflamed pancreas. Normal stomach.No ureteral stones. No obstructive uropathy. There is circumferential urinary bladder wall thickening with several locules of intraluminal gas raising concern for possible cystitis.The bowel is nonobstructed. Normal appendix. No pelvic free fluid. No free air. No suspicious bony lesion.IMPRESSIONCircumferential urinary bladder wall thickening with locules of intraluminal gas raise concern for possible acute cystitis. Urine studies may be useful for further detail.Additional findings as described.Electronically signed by: Abdulkadir Swartz (May 22, 2023 23:59:43)
[2023-05-23] MEDS ORDERED: ZOSYN VIAL 3.375 GRAMS IV ONE (01:57)
[2023-05-23] MEDS ORDERED: NS 100 ML IV 100 ML ONE (01:57)
[2023-05-23] MEDS: ZOSYN VIAL 3.375 GRAMS 3.375 G in NS 100 ML IV 100 ML IV SCH ×4 (02:03→21:01)
[2023-05-23] MEDS ORDERED: NovoLIN R (or HumuLIN R) SUBCUT PRN ×2 (03:28→03:49)
[2023-05-23] MEDS ORDERED: CONSULT PHARMACY - POTASSIUM & MAGNESIUM XX SCH (03:28)
[2023-05-23 03:40] VITALS: BMI 27.2
[2023-05-23] MEDS: NS 1,000 ML IV 1,000 ML IV SCH ×5 (08:26→23:45)
[2023-05-23] MEDS: PROTONIX TAB 40 MG PO SCH ×2 (08:28→20:11)
[2023-05-23] MEDS: REQUIP PO SCH ×2 (08:28→20:12)
[2023-05-23] MEDS: ZyrTEC TAB 10 MG PO SCH (08:28)
[2023-05-23 08:42] LABS: BILIRUBIN,URINE NEGATIVE (NEGATIVE); BLOOD/HEMOGLOBIN,URINE 3+ (NEGATIVE); GLUCOSE, URINE 3+ (NEGATIVE); KETONES,URINE NEGATIVE (NEGATIVE); LEUKOCYTE ESTERASE ,URINE 3+ (NEGATIVE); NITRITES,URINE NEGATIVE (NEGATIVE); PROTEIN,URINE 2+ (NEGATIVE); UROBILINOGEN,URINE NORMAL (NORMAL)
[2023-05-23 08:54] LABS: APPEARANCE,URINE CLOUDY (CLEAR); BACTERIA,URINE 4+ /HPF (NEGATIVE); COLOR,URINE YELLOW (YELLOW); RBC,URINE 0-2 /HPF (0-3); SQUAMOUS EPITHELIAL CELL,UR FEW /HPF (NEGATIVE)
[2023-05-23] MEDS ORDERED: [UNRECOGNIZED DRUG - REMARK] PO SCH (09:00)
[2023-05-23] MEDS ORDERED: TORADOL 30 MG VIAL IVP PRN (09:50)
[2023-05-23] MEDS: SNACK - Diabetic Appropriate PO SCH (20:10)
[2023-05-23] MEDS: HYTRIN PO SCH (20:11)
[2023-05-23] MEDS: K-DUR TAB 20 MEQ PO SCH (20:11)
--- NOTE | 2023-05-23 22:07 | DR.H&P ---
H&P - History & Physical for Day of: H&P Date: 05/23/23 - Chief Complaint Chief Complaint: WEAKNESS, ABDOMINAL PAIN, DROWSINESS - History of Present Illness History of Present Illness: IS A 72 YEAR OLD PATIENT OF OURS. HE PRESENTED TO THE ER WITH COMPALINTS OF INCREASING WEAKNESS, INCREASING DROWSINESS, AND GENERALIZED ABDOMINAL PAIN. SYMPTOMS HAVE BEEN PRESENT FOR ABOUT A WEEK. HE DENIES HEADACHE, CHEST PAIN, N/V, BACK PAIN, OR EXTREMITY PAIN. HE HAS A PMH OF DM II AND GERD. ON ARRIVAL TO THE ER, HIS VITALS WERE: 98.5-111-20-95%-74/50. LABS WERE OBTAINED. WBC 7.5, RBC 4.52, HGB 13.1, HCT 38.8, PLT COUNT 319, SODIUM 134, POTASSIUM 4.0, CHLORIDE 99, CARBON DIOXIDE 27.7, BUN 19, CREATININE 1.89, GLUCOSE 214, CALCIUM 8.2, TOTAL BILI 0.40, AST 17, ALT 15, ALK PHOS 107, TOTAL PROTEIN 6.9, ALBUMIN 2.7. A URINALYSIS WAS OBTAINED AND REVEALED: WBC TNTC, RBC 0-2, BACTERIA 4+, LEUKOCYTES 3+, BLOOD 3+. COVID-19 NEGATIVE. URINE CULTURE WAS SET UP. AN ABDOMEN/PELVIS CT WITHOUT CONTRAST WAS OBTAINED AND REVEALED: Circumferential urinary bladder wall thickening with locules of intraluminal gas raise concern for possible acute cystitis. Urine studies may be useful for further detail. HE WAS ADMITTED TO THE HOSPITAL FOR FURTHER EVALUATION AND TREATMENT OF CYSTITIS, GENERALIZED WEAKNESS, AND HYPOTHYROIDISM. HE WAS STARTED ON NORMAL SALINE AT 100 ML/HR, ZOSYN 3.375G IV TID, SYNTHROID 25MCG PO DAILY, OTBS ACHS, HUMULIN R SLIDING SCALE, AND TORADOL 30MG IV Q8H PRN. WE WILL RESUME HIS HOME MEDICATIONS OF ZYRTEC, PROTONIX, KDUR, REQUIP, AND TERAZOSIN. OTHERWISE, WE WILL FOLLOW-UP WITH AM LABS AND CONTINUE TO MONITOR. TIME SPENT ON CLINICAL ASSESSMENT, REVIEWING LABS AND IMAGING, DECISION MAKING, AND DOCUMENTATION GREATER THAN 75 MINUTES. - Past Medical History Past Medical History: Diabetes, GERD - Past Surgical History Surgical History: Ortho Surgery, Tonsillectomy - Family History Family Medical History: Coronary Artery Disease, Hypertension - Social History Does patient currently use any type of tobacco product: No Have you used tobacco products in the last 12 months: No Type of Tobacco Use: None Does any household member use tobacco: No Alcohol Use: None Drug Use: None - Review of Systems Constitutional: Weakness Eyes: No Symptoms Reported ENT: No Symptoms Reported Respiratory: No Symptoms Reported Cardiovascular: No Symptoms Reported Gastrointestinal: Abdominal Pain Genitourinary: No Symptoms Reported Musculoskeletal: No Symptoms Reported Skin: No Symptoms Reported Neurological: Weakness - Physical Exam Vital Signs: Vital Signs Temperature 98.0 F Temperature 97.4 F Pulse Rate 63 Pulse Rate 61 Pulse Rate 79 Pulse Rate 62 Pulse Rate 76 Pulse Rate 94 Pulse Rate 65 Pulse Rate 66 Pulse Rate 70 Pulse Rate 74 Pulse Rate 74 Pulse Rate 75 Pulse Rate 74 Pulse Rate 74 Pulse Rate 78 Pulse Rate 77 Pulse Rate 75 Pulse Rate 76 Pulse Rate 69 Pulse Rate 71 Respiratory Rate 22 Respiratory Rate 20 Respiratory Rate 22 Respiratory Rate 29 Respiratory Rate 31 Respiratory Rate 32 Respiratory Rate 31 Respiratory Rate 32 Respiratory Rate 32 Respiratory Rate 30 Respiratory Rate 33 Respiratory Rate 32 Respiratory Rate 31 Respiratory Rate 34 Respiratory Rate 29 Respiratory Rate 32 Respiratory Rate 23 Respiratory Rate 33 Respiratory Rate 29 Respiratory Rate 29 Blood Pressure 162/74 Blood Pressure 156/75 Blood Pressure 148/77 Blood Pressure 159/74 Blood Pressure 156/74 Blood Pressure 148/68 Blood Pressure 132/61 Blood Pressure 112/61 O2 Sat by Pulse Oximetry 94 O2 Sat by Pulse Oximetry 95 O2 Sat by Pulse Oximetry 95 O2 Sat by Pulse Oximetry 91 O2 Sat by Pulse Oximetry 89 O2 Sat by Pulse Oximetry 95 O2 Sat by Pulse Oximetry 92 O2 Sat by Pulse Oximetry 91 O2 Sat by Pulse Oximetry 90 O2 Sat by Pulse Oximetry 91 O2 Sat by Pulse Oximetry 90 O2 Sat by Pulse Oximetry 89 O2 Sat by Pulse Oximetry 88 O2 Sat by Pulse Oximetry 87 O2 Sat by Pulse Oximetry 92 O2 Sat by Pulse Oximetry 90 O2 Sat by Pulse Oximetry 90 O2 Sat by Pulse Oximetry 94 O2 Sat by Pulse Oximetry 91 O2 Sat by Pulse Oximetry 91 Oriented: Normal Eyes: Normal Ear: Normal Nose: Normal Throat: Normal Respiratory: Diminished Throughout Cardiovascular: Normal Auscultation: Bowel Sounds: Normal Palpation: Normal Tenderness: Suprapubic Skin: Normal Musculoskeletal: Normal Psychiatric: Normal Mood Description: Calm Affect: Normal Speech Pattern: Clear - Assessment/Plan (1) Cystitis Status: Acute Plan: ADMIT, NORMAL SALINE AT 100 ML/HR, ZOSYN 3.375G IV TID, SYNTHROID 25MCG PO DAILY, OTBS ACHS, HUMULIN R SLIDING SCALE, AND TORADOL 30MG IV Q8H PRN. WE WILL RESUME HIS HOME MEDICATIONS OF ZYRTEC, PROTONIX, KDUR, REQUIP, AND TERAZOSIN. 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-way use Diabetes mellitus complication status: with hyperglycemia Qualified Code(s): E11.65 - Type 2 diabetes mellitus with hyperglycemia; Z79.4 - FPC (current) use of insulin Status: Chronic - Allergies Allergies/Adverse Reactions: Allergies Allergy/AdvReac Type Severity Reaction Status Date / Time codeine Allergy Verified 05/22/23 21:17 erythromycin base Allergy Verified 05/22/23 21:17 shellfish derived Allergy Verified 05/22/23 21:17 - Medications Home Medications: Home Medications Medication Instructions Recorded Confirmed cetirizine 10 mg tablet (Zyrtec) 10 mg PO QDAY 05/17/23 05/23/23 insulin degludec 100 unit/mL 16 unit subcut QDAY 05/17/23 05/23/23 subcutaneous solution (Tresiba U-100 Insulin) semaglutide 3 mg tablet (Rybelsus) 3 mg PO QDAY 05/17/23 05/23/23 cyanocobalamin (vitamin B-12) 1,000 mcg IM QWEEK 05/23/23 05/23/23 1,000 mcg/mL injection solution hydrocodone 10 mg-acetaminophen 1 tab PO QDAY PRN 05/23/23 05/23/23 325 mg tablet hydrocodone 10 mg-chlorpheniramine 5 ml PO Q12H PRN cough 05/23/23 05/23/23 8 mg/5 mL oral susp extend.rel 12hr meloxicam 15 mg tablet 15 mg PO QDAY 05/23/23 05/23/23 pantoprazole 40 mg tablet,delayed 40 mg PO BID 05/23/23 05/23/23 release ropinirole 0.5 mg tablet 0.5 mg PO BID 05/23/23 05/23/23 terazosin 10 mg capsule 20 mg PO QPM 05/23/23 05/23/23
[2023-05-24] MEDS: NS 1,000 ML IV 1,000 ML IV SCH ×3 (05:05→16:31)
[2023-05-24] MEDS: ZOSYN VIAL 3.375 GRAMS 3.375 G in NS 100 ML IV 100 ML IV SCH ×3 (05:06→22:08)
[2023-05-24 05:33] LABS: BASOPHILS % (AUTO) 0.4 % (0.2-1.0); EOSINOPHILS # (AUTO) 0.1 x10^3/uL (0.0-0.2); EOSINOPHILS % (AUTO) 1.1 % (0.9-2.9); HEMATOCRIT 30.2 % (42.0-54.0); LYMPHOCYTES # (AUTO) 1.6 X10^3/uL (1.3-2.9); LYMPHOCYTES % (AUTO) 20.5 % (21.0-51.0); MEAN CORPUSCULAR HEMOGLOBIN 29.5 pg (27.0-34.0); MEAN CORPUSCULAR HGB CONC 34.4 g/dL (33.0-35.0); MEAN CORPUSCULAR VOLUME 85.9 fL (80.0-100.0); MEAN PLATELET VOLUME 7.9 fL (7.4-11.0); MONOCYTES # (AUTO) 0.8 x10^3/uL (0.3-0.8); NEUTROPHILS # (AUTO) 5.4 x10^3/uL (2.2-4.8); PLATELET COUNT 322 X10^3/uL (150.0-450.0); RED BLOOD COUNT 3.52 X10^6/uL (4.7-6.0); RED CELL DISTRIBUTION WIDTH 13.2 % (11.6-16.5); WHITE BLOOD COUNT 7.9 X10^3/uL (3.6-10.0)
[2023-05-24] MEDS: SYNTHROID 25 mcg TAB PO SCH (05:34)
[2023-05-24 05:44] LABS: ALBUMIN 2.1 g/dL (3.4-5.0); CALCIUM 7.6 mg/dL (8.5-10.1); CARBON DIOXIDE 23.5 mmol/L (21-32); COR CA(FOR HYPOALB) 9.1 mg/dL (8.5-10.1); CREATININE 1.63 mg/dL (0.70-1.30); HEMOGLOBIN 10.4 g/dL (13.5-18.0); POTASSIUM 3.8 mmol/L (3.5-5.1); TOTAL PROTEIN 5.9 g/dL (6.4-8.2)
[2023-05-24] MEDS ORDERED: CONSULT PHARMACY - POTASSIUM & MAGNESIUM XX SCH (07:00)
[2023-05-24] MEDS: ZyrTEC TAB 10 MG PO SCH (08:58)
[2023-05-24] MEDS: PROTONIX TAB 40 MG PO SCH ×2 (08:58→20:24)
[2023-05-24] MEDS: MAG-OX TAB PO SCH ×3 (08:58→20:27)
[2023-05-24] MEDS: REQUIP PO SCH ×2 (08:58→20:23)
[2023-05-24] MEDS ORDERED: K-DUR TAB 20 MEQ PO SCH (09:00)
[2023-05-24] MEDS ORDERED: MICARDIS PO SCH (10:30)
[2023-05-24] MEDS: ZOFRAN INJ 4 MG VIAL IVP PRN ×2 (10:51→19:30)
[2023-05-24] MEDS: MICARDIS PO SCH ×2 (10:51→10:55)
[2023-05-24] MEDS ORDERED: COLACE CAP 100 MG PO PRN (14:10)
[2023-05-24] MEDS ORDERED: MILK OF MAGNESIA PO PRN (14:10)
[2023-05-24] MEDS ORDERED: PHENERGAN INJ 25 MG IM PRN (19:36)
[2023-05-24] MEDS: K-DUR TAB 20 MEQ PO SCH (20:23)
[2023-05-24] MEDS: SNACK - Diabetic Appropriate PO SCH (20:27)
[2023-05-24] MEDS: HYTRIN PO SCH (20:28)
[2023-05-25] MEDS ORDERED: NS 100 ML IV 100 ML ONE (04:38)
[2023-05-25 05:12] LABS: BASOPHILS % (AUTO) 0.4 % (0.2-1.0); EOSINOPHILS # (AUTO) 0.2 x10^3/uL (0.0-0.2); EOSINOPHILS % (AUTO) 3.1 % (0.9-2.9); HEMATOCRIT 31.9 % (42.0-54.0); HEMOGLOBIN 10.9 g/dL (13.5-18.0); LYMPHOCYTES # (AUTO) 1.6 X10^3/uL (1.3-2.9); MEAN CORPUSCULAR HEMOGLOBIN 29.3 pg (27.0-34.0); MEAN CORPUSCULAR HGB CONC 34.3 g/dL (33.0-35.0); MEAN CORPUSCULAR VOLUME 85.4 fL (80.0-100.0); MEAN PLATELET VOLUME 7.8 fL (7.4-11.0); MONOCYTES # (AUTO) 0.5 x10^3/uL (0.3-0.8); MONOCYTES % (AUTO) 7.5 % (0.0-13.0); NEUTROPHILS # (AUTO) 4.5 x10^3/uL (2.2-4.8); PLATELET COUNT 317 X10^3/uL (150.0-450.0); RED BLOOD COUNT 3.73 X10^6/uL (4.7-6.0); RED CELL DISTRIBUTION WIDTH 13.5 % (11.6-16.5); WHITE BLOOD COUNT 6.8 X10^3/uL (3.6-10.0)
[2023-05-25 05:28] LABS: ALANINE AMINOTRANSFERASE 13 Units/L (12-78); ALBUMIN 2.1 g/dL (3.4-5.0); ALKALINE PHOSPHATASE 91 Units/L (46-116); ASPARTATE AMINO TRANSFERASE 17 Units/L (15-37); BLOOD UREA NITROGEN 11 mg/dL (7-18); CALCIUM 7.5 mg/dL (8.5-10.1); CARBON DIOXIDE 26.7 mmol/L (21-32); CHLORIDE 106 mmol/L (98-107); COR NA(FOR HYPERGLY) 142 mmol/L (136-145); CREATININE 1.47 mg/dL (0.70-1.30); GLUCOSE 175 mg/dL (65-99); MAGNESIUM 1.9 mg/dL (2.0-2.9); POTASSIUM 4.2 mmol/L (3.5-5.1); SODIUM 140 mmol/L (136-145); TOTAL PROTEIN 5.8 g/dL (6.4-8.2); eGFR NON BLACK RACES 50 (>60)
[2023-05-25] MEDS: NS 1,000 ML IV 1,000 ML IV SCH ×5 (05:29→20:16)
[2023-05-25] MEDS: SYNTHROID 25 mcg TAB PO SCH (05:40)
[2023-05-25] MEDS: ZOSYN VIAL 3.375 GRAMS 3.375 G in NS 100 ML IV 100 ML IV SCH ×3 (05:40→21:30)
[2023-05-25] MEDS: ZyrTEC TAB 10 MG PO SCH (08:35)
[2023-05-25] MEDS: PROTONIX TAB 40 MG PO SCH ×2 (08:36→20:15)
[2023-05-25] MEDS: REQUIP PO SCH ×2 (08:36→20:15)
[2023-05-25] MEDS: MICARDIS PO SCH (08:36)
[2023-05-25] MEDS: MAG-OX TAB PO SCH ×2 (09:55→21:00)
[2023-05-25] MEDS ORDERED: BUTT CREAM (COMPOUND) TOP PRN (10:40)
[2023-05-25] MEDS: K-DUR TAB 20 MEQ PO SCH (20:15)
[2023-05-25] MEDS: HYTRIN PO SCH (20:15)
[2023-05-25] MEDS: SNACK - Diabetic Appropriate PO SCH (20:59)
[2023-05-25] MEDS: COLACE CAP 100 MG PO SCH (21:00)
[2023-05-26 05:05] LABS: BASOPHILS % (AUTO) 0.3 % (0.2-1.0); EOSINOPHILS # (AUTO) 0.2 x10^3/uL (0.0-0.2); EOSINOPHILS % (AUTO) 3.2 % (0.9-2.9); HEMATOCRIT 33.6 % (42.0-54.0); HEMOGLOBIN 11.6 g/dL (13.5-18.0); LYMPHOCYTES # (AUTO) 1.8 X10^3/uL (1.3-2.9); MEAN CORPUSCULAR HEMOGLOBIN 29.2 pg (27.0-34.0); MEAN CORPUSCULAR HGB CONC 34.6 g/dL (33.0-35.0); MEAN CORPUSCULAR VOLUME 84.3 fL (80.0-100.0); MEAN PLATELET VOLUME 7.6 fL (7.4-11.0); MONOCYTES # (AUTO) 0.5 x10^3/uL (0.3-0.8); NEUTROPHILS # (AUTO) 5.2 x10^3/uL (2.2-4.8); NEUTROPHILS % (AUTO) 67.5 % (42.0-75.0); PLATELET COUNT 314 X10^3/uL (150.0-450.0); RED BLOOD COUNT 3.98 X10^6/uL (4.7-6.0); RED CELL DISTRIBUTION WIDTH 13.4 % (11.6-16.5); WHITE BLOOD COUNT 7.7 X10^3/uL (3.6-10.0)
[2023-05-26] MEDS: ZOSYN VIAL 3.375 GRAMS 3.375 G in NS 100 ML IV 100 ML IV SCH ×3 (05:06→21:49)
[2023-05-26] MEDS: NS 1,000 ML IV 1,000 ML IV SCH ×3 (05:07→20:00)
[2023-05-26 05:11] LABS: ALANINE AMINOTRANSFERASE 11 Units/L (12-78); ALBUMIN 2.2 g/dL (3.4-5.0); ALKALINE PHOSPHATASE 89 Units/L (46-116); ASPARTATE AMINO TRANSFERASE 16 Units/L (15-37); BLOOD UREA NITROGEN 9 mg/dL (7-18); CALCIUM 7.6 mg/dL (8.5-10.1); CARBON DIOXIDE 25.2 mmol/L (21-32); CHLORIDE 106 mmol/L (98-107); COR NA(FOR HYPERGLY) 142 mmol/L (136-145); CREATININE 1.37 mg/dL (0.70-1.30); GLUCOSE 133 mg/dL (65-99); POTASSIUM 4.2 mmol/L (3.5-5.1); SODIUM 141 mmol/L (136-145); TOTAL PROTEIN 5.9 g/dL (6.4-8.2); eGFR NON BLACK RACES 54 (>60)
[2023-05-26] MEDS: SYNTHROID 25 mcg TAB PO SCH (05:42)
[2023-05-26] MEDS: REQUIP PO SCH ×2 (10:02→20:41)
[2023-05-26] MEDS: PROTONIX TAB 40 MG PO SCH ×2 (10:04→20:41)
[2023-05-26] MEDS: MICARDIS PO SCH (10:05)
[2023-05-26] MEDS: ZyrTEC TAB 10 MG PO SCH (10:05)
[2023-05-26] MEDS: MAG-OX TAB PO SCH ×2 (10:06→20:42)
[2023-05-26] MEDS: VSL#3 PO SCH (10:06)
--- NOTE | 2023-05-26 11:03 | RAD ---
HISTORYNausea, vomiting, abdominal painSTUDYAcute abdominal seriesCOMPARISONNoneFINDINGSAbdominal gas pattern is nonspecific and nonobstructive. No abnormal masses or abnormal calcifications are identified. No pneumoperitoneum is identified. Heart size is normal. Lung wren are clear.IMPRESSIONUnremarkable acute abdominal seriesElectronically signed by: LANETTE GARZON (May 26, 2023 11:01:56)
[2023-05-26] MEDS: ZOFRAN INJ 4 MG VIAL IVP PRN (15:43)
[2023-05-26] MEDS: SNACK - Diabetic Appropriate PO SCH (20:39)
[2023-05-26] MEDS: K-DUR TAB 20 MEQ PO SCH (20:40)
[2023-05-26] MEDS: HYTRIN PO SCH (20:40)
[2023-05-26] MEDS: COLACE CAP 100 MG PO SCH (20:40)
[2023-05-26 20:52] VITALS: TEMP 98
[2023-05-27] MEDS: NS 1,000 ML IV 1,000 ML IV SCH (05:06)
[2023-05-27] MEDS: ZOSYN VIAL 3.375 GRAMS 3.375 G in NS 100 ML IV 100 ML IV SCH (05:07)
[2023-05-27] MEDS: SYNTHROID 25 mcg TAB PO SCH (06:08)
[2023-05-27 06:28] LABS: BASOPHILS % (AUTO) 0.5 % (0.2-1.0); EOSINOPHILS # (AUTO) 0.3 x10^3/uL (0.0-0.2); EOSINOPHILS % (AUTO) 3.7 % (0.9-2.9); HEMATOCRIT 33.7 % (42.0-54.0); HEMOGLOBIN 11.5 g/dL (13.5-18.0); LYMPHOCYTES # (AUTO) 1.5 X10^3/uL (1.3-2.9); LYMPHOCYTES % (AUTO) 19.8 % (21.0-51.0); MEAN CORPUSCULAR HEMOGLOBIN 28.7 pg (27.0-34.0); MEAN CORPUSCULAR VOLUME 84.3 fL (80.0-100.0); MEAN PLATELET VOLUME 7.4 fL (7.4-11.0); MONOCYTES # (AUTO) 0.5 x10^3/uL (0.3-0.8); NEUTROPHILS # (AUTO) 5.2 x10^3/uL (2.2-4.8); PLATELET COUNT 333 X10^3/uL (150.0-450.0); RED CELL DISTRIBUTION WIDTH 13.3 % (11.6-16.5); WHITE BLOOD COUNT 7.5 X10^3/uL (3.6-10.0)
[2023-05-27 06:55] LABS: ALANINE AMINOTRANSFERASE 12 Units/L (12-78); ALBUMIN 2.3 g/dL (3.4-5.0); ALKALINE PHOSPHATASE 88 Units/L (46-116); ASPARTATE AMINO TRANSFERASE 16 Units/L (15-37); BLOOD UREA NITROGEN 8 mg/dL (7-18); CALCIUM 7.7 mg/dL (8.5-10.1); CARBON DIOXIDE 26.5 mmol/L (21-32); CHLORIDE 107 mmol/L (98-107); COR CA(FOR HYPOALB) 9.1 mg/dL (8.5-10.1); COR NA(FOR HYPERGLY) 141 mmol/L (136-145); CREATININE 1.41 mg/dL (0.70-1.30); GLUCOSE 142 mg/dL (65-99); POTASSIUM 4.7 mmol/L (3.5-5.1); SODIUM 140 mmol/L (136-145); TOTAL PROTEIN 6.1 g/dL (6.4-8.2); eGFR NON BLACK RACES 53 (>60)
[2023-05-27] MEDS: REQUIP PO SCH (09:34)
[2023-05-27] MEDS: ZyrTEC TAB 10 MG PO SCH (09:36)
[2023-05-27] MEDS: VSL#3 PO SCH (09:36)
[2023-05-27] MEDS: MICARDIS PO SCH (09:36)
[2023-05-27] MEDS: MAG-OX TAB PO SCH (09:37)
[2023-05-27] MEDS: PROTONIX TAB 40 MG PO SCH (09:43)
[2023-05-27 10:02] VITALS: BP 163/69; PULSE 64; RESP 18; O2SAT 96
== END 2023-05-27 11:25 | disposition home or self-care (01) ==
LOC: ICU 20:56 → ER 20:56 → ICU 05-23 03:17 → MED/SURG 05-26 12:59
PROVIDERS: ADMIT Internal Medicine; ATTEND Internal Medicine
DX: E83.42 Hypomagnesemia; E03.8 Other specified hypothyroidism; Z79.4 Long term (current) use of insulin; R19.7 Diarrhea, unspecified; E11.65 Type 2 diabetes mellitus with hyperglycemia; K21.9 Gastro-esophageal reflux disease without esophagitis; R10.84 Generalized abdominal pain; N30.00 Acute cystitis without hematuria; B96.29 Other Escherichia coli [E. coli] as the cause of diseases classified elsewhere; R53.1 Weakness; Z20.822 Contact with and (suspected) exposure to COVID-19